=== PATIENT | male | born 1960 | race Caucasian/White ===

== ENCOUNTER → 2018-04-29 00:45 | Outpatient (CLI) | payer MEDICARE, SELFPAY ==
--- NOTE | 2018-04-29 07:54 | DI.RAD_ITS ---
SYMPTOM/DIAGNOSIS: LT SHOULDER PAIN, M25.512 LEFT SHOULDER: Five views. There are mild hypertrophic changes seen at the acromioclavicular joint. There is a well corticated osseous fragment seen within the acromioclavicular joint suggesting an old injury. The glenohumeral joint is well maintained. The bones are intact and normally mineralized. The soft tissues are unremarkable. IMPRESSION: Mild degenerative changes seen at the left acromioclavicular joint.
== END ==
PROVIDERS: PCP Specialist/Technologist Athletic Trainer; Visit Provider Specialist/Technologist Athletic Trainer
DX: M25.512 Pain in left shoulder (principal); M19.012 Primary osteoarthritis, left shoulder
CPT/HCPCS: 73030

== ENCOUNTER 2018-06-10 01:12 | Outpatient (CLI) | payer MEDICARE, MEDICAID, SELFPAY ==
--- NOTE | 2018-06-10 15:50 | DI.MRI_ITS ---
SYMPTOM/DIAGNOSIS: LT SHOULDER PAIN, M25.512, H/O TRAUMA, NUMBNESS IN FINGERS LEFT SHOULDER MRI: Routine noncontrast examination was performed. The subscapularis tendon is intact as are the supraspinatus and teres minor tendons. There is thickening and intermediate signal seen in the infraspinatus tendon at its insertion site onto the greater tuberosity. The rotator cuff muscles show normal signal and size. No significant muscular fatty atrophy is present. The biceps tendon has a normal appearance and location. The glenoid labrum is grossly unremarkable on this noncontrast examination. The ligaments appear intact. There are mild hypertrophic changes seen at the acromioclavicular joint. Marrow signal otherwise is within normal limits. No evidence of an occult fracture or avascular necrosis is seen. There is a small amount of fluid seen in the subacromial subdeltoid bursa. No significant glenohumeral joint effusion is seen. No soft tissue masses or other focal fluid collections are appreciated. The articular cartilage at the glenohumeral joint appears well maintained. IMPRESSION: Abnormal signal and thickening in the infraspinatus tendon. This may represent a partial intrasubstance tear versus tendinosis. Osteoarthritis of the acromioclavicular joint. Small amount of fluid in the subacromial subdeltoid bursa suggesting bursitis.
== END 2018-06-10 01:32 ==
PROVIDERS: PCP Specialist/Technologist Athletic Trainer; Visit Provider Specialist/Technologist Athletic Trainer
DX: M25.512 Pain in left shoulder (principal); R20.2 Paresthesia of skin; M75.51 Bursitis of right shoulder; M19.011 Primary osteoarthritis, right shoulder
CPT/HCPCS: 73221

== ENCOUNTER → 2018-07-04 09:04 | Outpatient (BNVA) | payer MEDICARE, MEDICAID, SELFPAY | PROVIDERS: PCP Specialist/Technologist Athletic Trainer; Referring Provider Specialist/Technologist Athletic Trainer; Visit Provider Orthopaedic Surgery | DX: M75.102 Unspecified rotator cuff tear or rupture of left shoulder, not specified as traumatic (principal) | CPT/HCPCS: 20610; 99202; 99213; J1040 ==

== ENCOUNTER 2019-01-09 21:03 | Emergency (ER) | payer MEDICARE, SELFPAY ==
--- NOTE | 2019-01-09 21:07 | NUR.NOTE ---
Nursing Note: approximately 1900 pt tripped over a pipe in his house and rolled his right ankle PT thinks he broke his ankle. pt has broken the same ankle 3 previous times significant swelling
[2019-01-09 21:08] VITALS: BP 136/84; PULSE 88; RESP 16; TEMP 36.8; O2SAT 98
--- NOTE | 2019-01-09 21:33 | ED.GENADUL_ITS ---
Discharge Plan Disposition Patient Disposition: HOME Discharge Details Chief Complaint: Orthopedic Clinical Impression: Avulsion fracture of right ankle Primary Care Provider: Rashid Vasquez ED Provider: Hank Vasques Discharge Instructions Instructions: Ankle Fracture (ED) Additional Instructions: Please take ibuprofen over the counter. Take 600mg by mouth every 6 hours as needed for pain. Please take acetaminophen (tylenol) - 650mg every 6 hours by mouth as needed for pain. Use orthopedic boot and crutches. Follow-up with orthopedics. Call for an appointment. Referrals: Rashid Vasquez [Primary Care Provider] - Cornelius Paris MD [ [facility] STAFF PHYSICIAN] - Medical Decision Making 21:45 --58-year-old male with history of 3 fractures of the right ankle in the past, requiring ORIF, here after inversion injury to his right ankle with significant swelling and tenderness lateral malleolus. Patient is neurovascular intact distally. Concern for fracture versus sprain. Plan to x-ray the ankle. I will give ibuprofen and Tylenol for pain. Ice applied. 23:35 --x-ray of the ankle was reviewed and interpreted by radiology: There may be an acute avulsion fracture of the right lateral malleolus. There is lateral ankle severe soft tissue swelling. There is moderate medial swelling as well. Evidence of old injuries ankle. Results reviewed the patient. Patient was placed in equalizer walking boot and provided crutches. He was instructed to stay off his ankle for the next few days and then slowly advance weightbearing as tolerated. He was instructed to follow-up with orthopedics and call for an appointment. HPI General Mode of arrival: ambulatory . Date/Time Provider Initiated Documentation: 01/09/19 21:21 . Limitations to Documentation: no limitations . Information obtained by: patient . HPI Narrative: 58-year-old male here with chief complaint of right ankle pain. Patient states that he inverted his ankle around 7 PM tonight after tripping over a pipe in his house. He is concerned that he has re-broken his ankle. Patient notes he is broken this ankle 3 times in the past requiring ORIF. He has no associated numbness or tingling. No other injury. No proximal lower leg pain. Related Data Allergies Allergy/AdvReac Type Severity Reaction Status Date / Time No Known Allergies Allergy Unverified 01/09/19 21:13 General Stated Complaint: Orthopedic PAULA: 4 Review of Systems Musculoskeletal Musculoskeletal: Reports as per HPI Neurologic Neurologic: Reports as per HPI [facility] Medical History Hypertension (Chronic) Surgical History Appendectomy Colonoscopy - IV Sedation (10/02/16) Social History Smoking/Tobacco Use Status: Former Tobacco Use Alcohol Intake: current Alcohol Intake frequency: 0-2 drinks per day Drug use: Never Substance use type: does not use Do you feel safe at home: Yes Do you feel safe in your relationship?: Yes Exam Const General: cooperative and no acute distress Cardio Rate: regular rate and not tachycardic Rhythm: regular rhythm Pulses: dorsalis pedis pulses present on the right 2+ Skin General skin exam: no rashes or lesions noted Extrem General: normal capillary refill Right lower extremity: ankle Details: tenderness Location: of the lateral malleolus and swelling Details: laterally Course Vital Signs Vital signs: Vital Signs Temperature 36.8 C 01/09/19 21:08 Pulse 88 01/09/19 21:08 Respiratory Rate 16 01/09/19 21:08 Blood Pressure 136/84 01/09/19 21:08 Pulse Oximetry 98 01/09/19 21:08 Temperature 36.8 C 01/09/19 21:08 Temperature Source Skin 01/09/19 21:08 Pulse 88 01/09/19 21:08 Respiratory Rate 16 01/09/19 21:08 Respiratory Effort 01/09/19 21:13 Blood Pressure 136/84 01/09/19 21:08 Blood Pressure Position Sitting 01/09/19 21:08 Pulse Oximetry 98 01/09/19 21:08 Oxygen Delivery Method Room Air 01/09/19 21:08 Oxygen Flow Rate 0 01/09/19 21:08 Pain Level 8 01/09/19 21:08
[2019-01-09] MEDS: Acetaminophen 325 MG TAB 650 MG PO (21:39)
[2019-01-09] MEDS: Ibuprofen 600 MG TAB PO (21:39)
--- NOTE | 2019-01-09 22:50 | DI.RAD_ITS ---
EXAM: XR ANKLE RT COMPLETE INDICATION: pain, inversion, prior ORIF. COMPARISON: No exams were available for comparison TECHNIQUE: 2D digital imaging was performed. FINDINGS: Soft tissue swelling is noted about the ankle. There is evidence of old healed fractures. Soft tissu e calcifications and degenerative changes. The possibility of an acute avulsion fracture of the righ t lateral malleolus could not be entirely excluded. IMPRESSION: There may be a small acute avulsion fracture involving the lateral malleolus. Soft tissue swelling is evident. Old fractures and degenerative changes are identified.
--- NOTE | 2019-01-09 23:27 | DI.VRAD_ITS ---
PROCEDURE INFORMATION: Exam: XR Right Ankle Exam date and time: 01/09/2019 9:32 PM Clinical history: 58 years old, male; Pain; Right; Prior surgery; Surgery date: 6+ months; Surgery type: Ankle orif TECHNIQUE: Imaging protocol: XR Right ankle. Views: 3 or more views. COMPARISON: No relevant prior studies available. FINDINGS: Bones/joints: Patient status post prior injury to the right ankle with evidence of old healed fractures ligamentous calcification soft tissue calcification and degenerative changes. There may be an acute avulsion fracture of the right lateral malleolus. Soft tissues: There is lateral ankle severe soft tissue swelling. There is moderate medial swelling as well. Phleboliths are present. Consider venous insufficiency. IMPRESSION: 1. There may be an acute avulsion fracture of the right lateral malleolus. 2. There is lateral ankle severe soft tissue swelling. There is moderate medial swelling as well. 3. Evidence of old injuries to the ankle Dictated and Authenticated by: Farrukh Sullivan MD. Ordering:JOHN Mckinney MD
== END 2019-01-09 23:45 | disposition home or self-care (01) ==
PROVIDERS: Emergency Provider Student in an Organized Health Care Education/Training Program; PCP Specialist/Technologist Athletic Trainer
DX: S82.61XA Displaced fracture of lateral malleolus of right fibula, initial encounter for closed fracture (principal); X50.9XXA Other and unspecified overexertion or strenuous movements or postures, initial encounter; Z87.81 Personal history of (healed) traumatic fracture
CPT/HCPCS: 27786; 73610; E0114; L4361

== ENCOUNTER → 2019-01-21 09:19 | Outpatient (BNVA) | payer MEDICARE, SELFPAY | PROVIDERS: PCP Specialist/Technologist Athletic Trainer; Referring Provider Specialist/Technologist Athletic Trainer; Visit Provider Orthopaedic Surgery | DX: S82.839A Other fracture of upper and lower end of unspecified fibula, initial encounter for closed fracture (principal); W01.0XXA Fall on same level from slipping, tripping and stumbling without subsequent striking against object, initial encounter | CPT/HCPCS: 99201; 99213; L4361 ==

== ENCOUNTER 2019-05-06 09:32 | Emergency (ER) | payer MEDICARE, SELFPAY ==
[2019-05-06 09:44] VITALS: BP 154/82; PULSE 68; RESP 13; TEMP 37.2; O2SAT 99
--- NOTE | 2019-05-06 09:48 | W.ED.GENAD ---
Discharge Plan Disposition Patient Disposition: HOME Condition: Stable Discharge Details Chief Complaint: Nk/Back Pain Clinical Impression: Thoracic myofascial strain Primary Care Provider: Rashid Vasquez ED Provider: Mecca Donaldson Home Meds and New Rx's Prescriptions: New methocarbamol 500 mg tablet 500 mg PO Q6H PRN (Reason: muscle spasm) Qty: 14 RF: 0 Continued ibuprofen 400 mg Tablet 400 mg PO Q6H PRNRF: 0 lisinopril 5 mg Tablet 5 mg PO DAILY RF: 0 Discharge Instructions Instructions: Muscle Strain (ED) Additional Instructions: Alternate ice and heat to the affected area several times daily for 20 minutes at a time. Alternate tylenol and motrin as needed and directed for pain. Take the muscle relaxers as needed and directed for pain and muscle spasm. Use a tennis ball and your weight to push against a wall in the area of pain to help with massage as much as possible. You can purchase [id number] lidocaine patches to use as needed and directed for pain. Follow-up with your primary care doctor in 1 week. Return to the emergency department with any worsening or new concerning symptoms. Discharge Data Discharge Date/Time-TO BE ENTERED AT DEPARTURE: 05/06/19 10:25 Discharge Physician: Mecca Donaldson Medical Decision Making 58-year-old male presents with right-sided upper back pain that started yesterday after 2 days of cutting wood. Patient states he had difficulty sleeping last night due to the pain that is worse with any movement, specifically his head or arms. He denies fever, cough, chest pain, shortness of breath or extremity weakness or numbness. He has a localized area of tenderness right paraspinal region medial scapula. Lungs clear. Normal heart rate and rhythm. No focal deficits. Neurovascular intact. This appears consistent with likely muscle spasm/pinched nerve. Patient states he drove himself here and cannot take any sedating medications as he has to drive himself home. An EKG was done on arrival but this was unnecessary. It noted a rate of 53, sinus, no acute ST ischemic changes. Lidoderm patch was placed and patient was given an additional 400 mg of ibuprofen as he took only 400mg 2 hours ago at home. We will send with a prescription for Robaxin. Patient was advised on the importance of massage, ice and heat. Advised to follow up with the primary care doctor for re-evaluation. Usual and customary return precautions given prior to discharge. Medical Records Medical records reviewed: Yes I reviewed the patient's medical records. ECG Data Attestation: I personally reviewed and interpreted this ECG (s) as follows: Interpretation: Rate of 57, sinus, no acute ST elevation or depression. WA 180. QTc 396. QRS 94. HPI General Mode of arrival: ambulatory. Date/Time Provider Initiated Documentation: 05/06/19 09:35. Limitations to Documentation: no limitations. Information obtained by: patient. History of Present Illness 58 year old M presents to the emergency department with the chief complaint of R sided back pain , Patient started experiencing this day(s) (1) and it has been constant. No relieving factors improve symptom(s), Movement worsens symptoms . Patient did receive the following treatments prior to arrival, NSAID (400mg) Related Data Home Medications Medication Instructions Recorded Confirmed ibuprofen 400 mg PO Q6H PRN 05/06/19 05/06/19 lisinopril 5 mg PO DAILY 05/06/19 05/06/19 methocarbamol 500 mg PO Q6H PRN #14 tab 05/06/19 Previous Rx's Medication Instructions Recorded methocarbamol 500 mg PO Q6H PRN #14 tab 05/06/19 Allergies Allergy/AdvReac Type Severity Reaction Status Date / Time No Known Allergies Allergy Verified 01/21/19 09:23 General Stated Complaint: Nk/Back Pain PAULA: 3 Review of Systems All systems reviewed & are unremarkable except as noted in HPI and below Constitutional Constitutional: Reports as per HPI, Denies chills and Denies fever(s) Eyes Eyes: Denies blurry vision ENT Ears, Nose, Mouth, and Throat: Denies dizziness, Denies sore throat and Denies throat swelling Cardiovascular Cardiovascular: Denies chest pain and Denies dyspnea Respiratory Respiratory: Denies cough and Denies dyspnea Gastrointestinal Gastrointestinal: Denies abdominal pain, Denies diarrhea and Denies vomiting Genitourinary Genitourinary: Denies hematuria and Denies dysuria Musculoskeletal Musculoskeletal: Reports back pain and Denies numbness Integumentary/Breasts Skin/Breast: Denies lesions and Denies rash Neurologic Neurologic: Denies dizziness, Denies focal weakness and Denies numbness Allergic/Immunologic Allergic/Immunologic: Denies throat swelling [facility] Medical History (Updated 05/06/19 @ 10:26 by Mecca Donaldson DO) Hypertension (Chronic) TBI (traumatic brain injury) (Acute) Surgical History Appendectomy Colonoscopy - IV Sedation (10/02/16) History of knee surgery (Acute) History of open heart surgery (Acute) History of splenectomy (Acute) Social History Smoking/Tobacco Use Status: Former Tobacco Use Alcohol Intake: current Alcohol Intake frequency: a few times a week Alcohol type: beer Drug use: Occasionally Substance use type: marijuana Do you feel safe at home: Yes Do you feel safe in your relationship?: Yes Exam Const General: cooperative, healthy appearing and no acute distress HENMT Head: normal to inspection Face and sinus: normal facial exam Eyes General: appearance normal, both eyes and all related structures EOM: EOM intact bilaterally Neck Neck: normal visual inspection and No submandibular swelling Lymphatic: no lymphadenopathy noted Chest Chest: normal inspection of the chest and no tenderness Resp Effort & Inspection: normal respiratory effort and able to speak in complete sentences Auscultation: clear to auscultation bilaterally Cardio Rate: regular rate Rhythm: regular rhythm GI Inspection: normal to inspection Palpation: soft, not firm, not rigid and nontender Auscultation: normal bowel sounds Back/Spine/Pelvis Thoracic/Lumbar Spine: thoracic and lumbar spine normal to inspection Pelvis: no pain with anterior-posterior compression Back/spine/pelvis image: 1. Localized area of tenderness right thoracic paraspinal region on medial edge of scapula. There is no rash, erythema, evidence of trauma, step-off, lesions or crepitus. Skin General skin exam: no rashes or lesions noted Neuro General: alert, awake and oriented x3 Cognition: normal cognition Speech: speech normal Motor: muscle tone normal throughout and strength 5/5 throughout Sensory Exam: no sensory deficits noted Extrem General: normal to inspection, full ROM, normal capillary refill, no calf tenderness bilaterally and no edema Psych Appearance: grossly normal Mental Status: mental status grossly normal Speech and Movement: speech and movement normal Affect: normal affect Course Vital Signs Vital signs: Vital Signs Temperature 99.0 F 05/06/19 09:44 Pulse 68 05/06/19 09:44 Respiratory Rate 13 05/06/19 09:44 Blood Pressure 154/82 H 05/06/19 09:44 Pulse Oximetry 99 05/06/19 09:44 Temperature 99.0 F 05/06/19 09:44 Temperature Source Skin 05/06/19 09:44 Pulse 68 05/06/19 09:44 Respiratory Rate 13 05/06/19 09:44 Blood Pressure 154/82 H 05/06/19 09:44 Blood Pressure Position Sitting 05/06/19 09:44 Pulse Oximetry 99 05/06/19 09:44 Oxygen Delivery Method Room Air 05/06/19 09:44 Oxygen Flow Rate 0 05/06/19 09:44 Pain Level 10 05/06/19 09:44
[2019-05-06] MEDS: Lidocaine 5% Patch 1 PATCH TP (10:22)
[2019-05-06] MEDS: Ibuprofen 400 MG TAB PO (10:22)
== END 2019-05-06 10:25 | disposition home or self-care (01) ==
PROVIDERS: Emergency Provider Physician Assistant; PCP Specialist/Technologist Athletic Trainer
DX: S29.012A Strain of muscle and tendon of back wall of thorax, initial encounter (principal); X50.3XXA Overexertion from repetitive movements, initial encounter; I10 Essential (primary) hypertension
CPT/HCPCS: 93005; 99283; 93010

== ENCOUNTER 2019-11-27 09:47 | Emergency (ER) | payer MEDICARE, MEDICAID, SELFPAY ==
[2019-11-27] VITALS (38 sets, daily range): BP systolic 137–178; BP diastolic 69–99; PULSE 63–92; RESP 14–24; TEMP 36.6–36.8; O2SAT 95–99
--- NOTE | 2019-11-27 09:45 | DI.RAD_ITS ---
EXAM: XR CHEST 2V PA LATERAL CLINICAL HISTORY: Palpitations TECHNIQUE: 2D digital imaging was performed. COMPARISON: CR XR shoulder LT complete 2+V from 04/29/2018 FINDINGS: The heart is not enlarged. The lungs are clear and well expanded. No pleural effusion seen. Mediastin al contours appear intact. IMPRESSION: Normal chest
--- NOTE | 2019-11-27 09:45 | RT.EKG_ITS ---
APPROVED REPORT Exam: Resting ECG Patient Location: E HR:86 bpm ECG Measurements Heart Rate 86 AXIS WA 181 P 71 QRSd 88 QRS 75 QT 360 T 30 QTc 433 Conclusion Sinus rhythm.rate 86, QRS narrow, wandering baseline, no stemi
[2019-11-27 10:10] LABS: Abs Immature Grans 0.03 10^3/uL (0.0-0.06); Absolute Basophil Count 0.04 10^3/uL (0.0-0.2); Absolute Eosinophil Count 0.07 10^3/uL (0.0-0.7); Absolute Lymphocyte Count 1.48 10^3/uL (1.2-3.4); Absolute Monocyte Count 0.81 10^3/uL (0.1-0.8); Absolute Neutrophil Count 6.12 10^3/uL (1.2-6.7); Basophils % 0.5; Eosinophils % 0.8; HCT 44.1 % (40.0-50.0); HGB 14.8 g/dL (13.5-17.5); Immature Grans % 0.4; Lymphocytes % 17.3; MCH 30.3 pg (27.0-33.0); MCHC 33.6 % (32.0-36.0); MCV 90.2 fL (80-95); MPV 9.3 fL (8.0-11.0); Monocytes % 9.5; Neutrophils % 71.5; Nucleated RBC 0 %; Platelet Count 363 10^3/uL (130-400); RBC 4.89 10^6/uL (4.36-5.78); RDW 14.6 % (11.8-14.1); RDW-SD 48.5 fL; WBC 8.55 10^3/uL (4.4-10.8)
[2019-11-27] MEDS: Aspirin 325 MG TAB PO (10:12)
[2019-11-27] MEDS: Normal Saline 1,000 ML 1000 ML IV (10:13)
[2019-11-27] MEDS: Normal Saline Flush 10 ML SYR IVP ×2 (10:13→11:20)
[2019-11-27 10:34] LABS: ALT 31 U/L (16-63); AST 24 U/L (15-37); Albumin 3.5 g/dL (3.4-5.0); Alkaline Phosphatase 85 U/L (46-116); Anion Gap 7.7 mmol/L (3-11); BUN 15 mg/dL (7-18); Bilirubin, Total 0.5 mg/dL (0.2-1.0); CO2 26.3 mmol/L (21.0-32.0); CREATININE 1.01 mg/dL (0.70-1.30); Calcium 8.8 mg/dL (8.5-10.1); Chloride 102 mmol/L (98-107); Glucose 196 mg/dL (74-106); Potassium 4.9 mmol/L (3.5-5.1); Sodium 136 mmol/L (136-145); TSH 0.77 uIU/mL (0.36-3.74); Total Protein 7.6 g/dL (6.4-8.2)
[2019-11-27 10:37] LABS: *AMPHETAMINES SCREEN URINE Negative (Negative); *BARBITURATES SCREEN URINE Negative (Negative); *BENZODIAZEPINES SCREEN URINE Negative (Negative); Cannabinoids THC POSITIVE (Negative); Cocaine Screen,Urine Negative (Negative); METHADONE URINE SCREEN POSITIVE (Negative); OPIATES URINE SCREEN Negative (Negative)
[2019-11-27 10:40] LABS: Troponin I < 0.05 ng/mL (<0.06)
[2019-11-27 10:41] LABS: Tricyclic Antidepressants Negative (Negative)
--- NOTE | 2019-11-27 10:45 | DI.CT_ITS ---
EXAM: CT CHEST PE CTA CLINICAL HISTORY: Palpitations, left mid back pain, elevated dimer TECHNIQUE: COMPARISON: CT RENAL COLIC WO CONTRAST from 12/27/2016 FINDINGS: CT angiography of the chest was performed with a bolus infusion of 100 cc of Omnipaque 350. Images o btained through the upper abdomen show unremarkable appearance of visualized portions of liver, splee n, pancreas, adrenals, and kidneys. No mediastinal or hilar adenopathy. Tracheobronchial tree appears intact. There is no evidence of p ulmonary embolic disease. Thoracic aorta is of normal diameter with no evidence of dissection. Pollo nary artery calcifications noted. The lungs are clear. No pleural effusion or pneumothorax. Old left posterior rib deformities noted, the patient reportedly had remote trauma. IMPRESSION: Negative CT angiography of the chest
[2019-11-27 10:53] LABS: D-Dimer 673 ng/mlFEU (<500)
--- NOTE | 2019-11-27 10:53 | ED.GENADUL_ITS ---
Discharge Plan Disposition Patient Disposition: HOME Condition: Stable Discharge Details Chief Complaint: Palpitatns Clinical Impression: Palpitations Primary Care Provider: None,None ED Provider: Herminio Cifuentes Home Meds and New Rx's Prescriptions: Continued ibuprofen 400 mg Tablet 400 mg PO Q6H PRNRF: 0 lisinopril 5 mg Tablet 10 mg PO DAILY RF: 0 aspirin 81 mg Tablet,Chewable 81 mg PO DAILY RF: 0 Discharge Instructions Instructions: Heart Palpitations (ED) Additional Instructions: At this time your laboratory values and cardiac rule out here in the ER have been unremarkable for emergent process. Your heart rate has stayed appropriate on the boring machine operator double end and her blood pressure has trended down nicely without intervention. You are currently asymptomatic. Please watch for new or worsening symptoms and return to the ER for any concerns. I have set you up with a 48-hour Holter monitor. I have also placed you on the care management list to help expedite outpatient care. I am not going to start any new hypertension medications and will have you discuss this with your new primary care provider. Medical Decision Making This is a 59-year-old gentleman with history of hypertension, presenting to the ER today reporting that he did not sleep at all overnight, on his way to work this morning experienced palpitations. He admits that he had similar symptoms 2 or 3 times over the past several months but symptoms only lasted for a matter a few minutes. He never had this evaluated. He denies recent illness or trauma. He did recently take himself off of his lisinopril as he did not like the way it was making him feel. He presents to the ER now asymptomatic. Clinically he appears well, nontoxic. Heart rate in the 90s on the monitor and appears to be sinus rhythm.. He is slightly hypertensive but asymptomatic. Respirations are 20, O2 sat 98% on room air, he is afebrile. We will obtain a cardiac work-up including a lipase, tox screen, TSH, d-dimer secondary to his back discomfort. The lack of sleep over the past 24 hours certainly could have exacerbated his palpitations. Lower suspicion for diagnosis such as acute pancreatitis, drug abuse, thyroid disease, PE, anemia, infection, etc. We will give a single dose of aspirin. Blood pressure trending down nicely without any therapy. Heart rate now in the 70s. Initial laboratories reveal a white count of 8.55 hemoglobin 14.8 hematocrit 44.1 platelet count 363. D-dimer is slightly elevated at 673, will obtain CTA. Chest x-ray was already obtained and negative per radiology. Chemistries unremarkable. Creatinine 1.01 with estimated GFR greater than 60. LFTs unremarkable. Troponin less than 0.05. TSH 0.77 and lipase is 224. Urinalysis reveals 15 ketones, trace blood, 3-5 red blood cells. He reports that he has had left-sided back pain intermittently for over a month. Clinically does not appear to be in acute renal stone, I do not believe that CT imaging of abdomen and pelvis warranted at this time. Urine tox screen positive for methadone and THC. Upon reevaluation we discussed his initial laboratory values including his d- dimer. He is agreeable to obtaining a chest CTA for further evaluation. He remains asymptomatic. He is also agreeable to awaiting repeat troponin and EKG at 3 hours. Chest CTA obtained and read by radiology as negative. Discussed findings with patient. He is relieved and remains asymptomatic. Repeat troponin less than 0.05. Repeat EKG performed at 1253, reviewed and interpreted with Dr. Gonzalez. Sinus rhythm, ventricular of 63. No STEMI. Discussed repeat troponin and EKG. Patient is relieved and has no additional questions or concerns. He is quite comfortable discharge at this time. Given his palpitations, multiple episodes over the past several months, I will set him up with a Holter monitor here in the ER and I will have our care management team get involved to help expedite outpatient care. Patient is grateful for this. We discussed his mild hypertension. Patient discontinued his lisinopril as he did not like how it made him feel. Given his blood pressure is only slightly elevated and he is currently asymptomatic, I will not initiate outpatient hypertension medications at this time. Instead I will allow his new primary care provider to discuss treatment plan. Patient is comfortable this plan. Upon discharge today he is asymptomatic. He has no additional questions or co ncerns and will await the care management call. He was educated to return to the ER for new or evolving symptoms. Medical Records Medical records reviewed: Yes I reviewed the patient's medical records. Imaging Data Radiologic Study: Radiologist's impression: Lab Data Lab results reviewed: Yes I reviewed the patient's lab results. Lab results narrative: Laboratory Tests Range/Units 11/27/19 11/27/19 11/27/19 09:58 10:00 10:00 WBC (4.4-10.8) 10^3/uL 8.55 RBC (4.36-5.78) 10^6/uL 4.89 Hgb (13.5-17.5) g/dL 14.8 Hct (40.0-50.0) % 44.1 MCV (80-95) fL 90.2 MCH (27.0-33.0) pg 30.3 MCHC (32.0-36.0) % 33.6 RDW (11.8-14.1) % 14.6 H Plt Count (130-400) 10^3/uL 363 MPV (8.0-11.0) fL 9.3 Immature Gran % 0.4 Neutrophils % 71.5 Lymphocytes % 17.3 Monocytes % 9.5 Eosinophils % 0.8 Basophils % 0.5 Absolute Neutrophils (1.2-6.7) 10^3/uL 6.12 Absolute Lymphocytes (1.2-3.4) 10^3/uL 1.48 Absolute Monocytes (0.1-0.8) 10^3/uL 0.81 H Absolute Eosinophils (0.0-0.7) 10^3/uL 0.07 Absolute Basophils (0.0-0.2) 10^3/uL 0.04 D-Dimer (<500) ng/mlFEU 673 H Sodium (136-145) mmol/L 136 Potassium (3.5-5.1) mmol/L 4.9 Chloride (98-107) mmol/L 102 Carbon Dioxide (21.0-32.0) mmol/L 26.3 Anion Gap (3-11) mmol/L 7.7 BUN (7-18) mg/dL 15 Creatinine (0.70-1.30) mg/dL 1.01 Estimated GFR/1.73 m2 (mL/min/1.73m2) >= 60.00 Glucose (74-106) mg/dL 196 H Calcium (8.5-10.1) mg/dL 8.8 Magnesium (1.8-2.4) mg/dL 2.0 Total Bilirubin (0.2-1.0) mg/dL 0.5 AST (15-37) U/L 24 ALT (16-63) U/L 31 Alkaline Phosphatase (46-116) U/L 85 Troponin I (<0.06) ng/mL < 0.05 Total Protein (6.4-8.2) g/dL 7.6 Albumin (3.4-5.0) g/dL 3.5 Lipase (73-393) U/L TSH (0.36-3.74) uIU/mL 0.77 Urine Color (Yellow) Urine Clarity (Clear) Urine pH (5-8) Ur Specific [place] (1.005-1.025) Urine Protein (Negative) mg/dL Urine Ketones (Negative) mg/dL Urine Blood (Negative) Urine Nitrite (Negative) Urine Bilirubin (Negative) Urine Urobilinogen (Up TO 0.2) EU/dL Ur Leukocyte Esterase (Negative) Urine RBC (0-2) HPF Urine WBC (0-5) HPF Ur Epithelial Cells (Negative) HPF Urine Crystals (Negative) HPF Urine Bacteria (Negative) HPF Urine Casts (Negative) LPF Urine Mucus (Negative) Urine Other (Negative) Ur Culture Indicated? Urine Glucose (Negative) mg/dL Urine Opiates Screen (Negative) Urine Methadone Screen (Negative) Ur Barbiturates Screen (Negative) Ur Tricyclics Screen (Negative) Ur Amphetamines Screen (Negative) U Benzodiazepines Scrn (Negative) Urine Cocaine Screen (Negative) Ur THC Screen (Negative) Range/Units 11/27/19 11/27/19 11/27/19 10:00 10:07 10:07 WBC (4.4-10.8) 10^3/uL RBC (4.36-5.78) 10^6/uL Hgb (13.5-17.5) g/dL Hct (40.0-50.0) % MCV (80-95) fL MCH (27.0-33.0) pg MCHC (32.0-36.0) % RDW (11.8-14.1) % Plt Count (130-400) 10^3/uL MPV (8.0-11.0) fL Immature Gran % Neutrophils % Lymphocytes % Monocytes % Eosinophils % Basophils % Absolute Neutrophils (1.2-6.7) 10^3/uL Absolute Lymphocytes (1.2-3.4) 10^3/uL Absolute Monocytes (0.1-0.8) 10^3/uL Absolute Eosinophils (0.0-0.7) 10^3/uL Absolute Basophils (0.0-0.2) 10^3/uL D-Dimer (<500) ng/mlFEU Sodium (136-145) mmol/L Potassium (3.5-5.1) mmol/L Chloride (98-107) mmol/L Carbon Dioxide (21.0-32.0) mmol/L Anion Gap (3-11) mmol/L BUN (7-18) mg/dL Creatinine (0.70-1.30) mg/dL Estimated GFR/1.73 m2 (mL/min/1.73m2) Glucose (74-106) mg/dL Calcium (8.5-10.1) mg/dL Magnesium (1.8-2.4) mg/dL Total Bilirubin (0.2-1.0) mg/dL AST (15-37) U/L ALT (16-63) U/L Alkaline Phosphatase (46-116) U/L Troponin I (<0.06) ng/mL Total Protein (6.4-8.2) g/dL Albumin (3.4-5.0) g/dL Lipase (73-393) U/L 224 TSH (0.36-3.74) uIU/mL Urine Color (Yellow) Yellow Urine Clarity (Clear) Clear Urine pH (5-8) 6.5 Ur Specific [place] (1.005-1.025) 1.025 Urine Protein (Negative) mg/dL Negative Urine Ketones (Negative) mg/dL 15 H Urine Blood (Negative) Trace-intact H Urine Nitrite (Negative) Negative Urine Bilirubin (Negative) Negative Urine Urobilinogen (Up TO 0.2) EU/dL 0.2 Ur Leukocyte Esterase (Negative) Negative Urine RBC (0-2) HPF 3-5 H Urine WBC (0-5) HPF 3-5 Ur Epithelial Cells (Negative) HPF Negative Urine Crystals (Negative) HPF Negative Urine Bacteria (Negative) HPF Rare Urine Casts (Negative) LPF Negative Urine Mucus (Negative) Moderate Urine Other (Negative) Rare renal Ur Culture Indicated? No Urine Glucose (Negative) mg/dL 500 H Urine Opiates Screen (Negative) Negative Urine Methadone Screen (Negative) Positive A Ur Barbiturates Screen (Negative) Negative Ur Tricyclics Screen (Negative) Negative Ur Amphetamines Screen (Negative) Negative U Benzodiazepines Scrn (Negative) Negative Urine Cocaine Screen (Negative) Negative Ur THC Screen (Negative) Positive A Range/Units 11/27/19 12:53 WBC (4.4-10.8) 10^3/uL RBC (4.36-5.78) 10^6/uL Hgb (13.5-17.5) g/dL Hct (40.0-50.0) % MCV (80-95) fL MCH (27.0-33.0) pg MCHC (32.0-36.0) % RDW (11.8-14.1) % Plt Count (130-400) 10^3/uL MPV (8.0-11.0) fL Immature Gran % Neutrophils % Lymphocytes % Monocytes % Eosinophils % Basophils % Absolute Neutrophils (1.2-6.7) 10^3/uL Absolute Lymphocytes (1.2-3.4) 10^3/uL Absolute Monocytes (0.1-0.8) 10^3/uL Absolute Eosinophils (0.0-0.7) 10^3/uL Absolute Basophils (0.0-0.2) 10^3/uL D-Dimer (<500) ng/mlFEU Sodium (136-145) mmol/L Potassium (3.5-5.1) mmol/L Chloride (98-107) mmol/L Carbon Dioxide (21.0-32.0) mmol/L Anion Gap (3-11) mmol/L BUN (7-18) mg/dL Creatinine (0.70-1.30) mg/dL Estimated GFR/1.73 m2 (mL/min/1.73m2) Glucose (74-106) mg/dL Calcium (8.5-10.1) mg/dL Magnesium (1.8-2.4) mg/dL Total Bilirubin (0.2-1.0) mg/dL AST (15-37) U/L ALT (16-63) U/L Alkaline Phosphatase (46-116) U/L Troponin I (<0.06) ng/mL < 0.05 Total Protein (6.4-8.2) g/dL Albumin (3.4-5.0) g/dL Lipase (73-393) U/L TSH (0.36-3.74) uIU/mL Urine Color (Yellow) Urine Clarity (Clear) Urine pH (5-8) Ur Specific [place] (1.005-1.025) Urine Protein (Negative) mg/dL Urine Ketones (Negative) mg/dL Urine Blood (Negative) Urine Nitrite (Negative) Urine Bilirubin (Negative) Urine Urobilinogen (Up TO 0.2) EU/dL Ur Leukocyte Esterase (Negative) Urine RBC (0-2) HPF Urine WBC (0-5) HPF Ur Epithelial Cells (Negative) HPF Urine Crystals (Negative) HPF Urine Bacteria (Negative) HPF Urine Casts (Negative) LPF Urine Mucus (Negative) Urine Other (Negative) Ur Culture Indicated? Urine Glucose (Negative) mg/dL Urine Opiates Screen (Negative) Urine Methadone Screen (Negative) Ur Barbiturates Screen (Negative) Ur Tricyclics Screen (Negative) Ur Amphetamines Screen (Negative) U Benzodiazepines Scrn (Negative) Urine Cocaine Screen (Negative) Ur THC Screen (Negative) ECG Data Attestation: I personally reviewed and interpreted this ECG (s) as follows: Interpretation: EKG performed at 951 reviewed and interpreted with Dr. Gonzalez, please see his official report. Sinus rhythm, ventricular rate 86. No STEMI HPI General Mode of arrival: ambulatory . Date/Time Provider Initiated Documentation: 11/27/19 09:48 . Limitations to Documentation: no limitations . Information obtained by: patient . HPI Narrative: This is a 59-year-old gentleman with a history of hypertension, TBI, presenting to the ER today complaining of palpitations. He reports that he woke up yesterday morning around 5 AM, went to work as he typically would. [place] a little fatigued overall but last night was unable to sleep whatsoever. He is unsure why he could not sleep. He denies increased stress or anxiety. Denies recent illness or trauma. Because he could not sleep overnight, he reports that he is tired now, on his way to work felt as though his heart was racing. Denies any chest pain or shortness of breath whatsoever. He does report similar symptoms 2 or 3 times over the past 6 months but did not last more than 5-10 minutes. He also reports that he stopped taking his lisinopril 5 days ago because he did not like taking it. He reports he has been on the medication for approximately 5 months. He admits to drinking a beer every evening after dinner but does not typically drink more than that. He reports occasional marijuana use but none yesterday. He does smoke cigarettes. He denies any headache, neck pain, numbness, tingling, weakness, chest pain, shortness of breath, back pain, abdominal pain, nausea, vomiting, dysuria. Later he tells me that he questions if he could have a kidney infection because he has had some left-sided kidney pain. He reports he has no pain there now. He has had it occasionally over the past month or so, typically is better if he stretches. Related Data Home Medications Medication Instructions Recorded Confirmed ibuprofen 400 mg PO Q6H PRN 05/06/19 11/27/19 lisinopril 10 mg PO DAILY 05/06/19 11/27/19 aspirin 81 mg PO DAILY 11/27/19 11/27/19 Allergies Allergy/AdvReac Type Severity Reaction Status Date / Time No Known Allergies Allergy Verified 11/27/19 09:52 General Stated Complaint: Palpitatns PAULA: 3 Review of Systems Constitutional Constitutional: Denies fatigue, Denies fever(s), Denies headache(s) and Denies weakness Eyes Eyes: Denies change in vision ENT Ears, Nose, Mouth, and Throat: Denies headache(s) and Denies neck pain Cardiovascular Cardiovascular: Denies chest pain, Reports rapid heart rate, Denies irregular heart rhythm, Denies lightheadedness, Denies radiating jaw, neck or arm pain, Denies palpitations and Denies dyspnea on exertion Respiratory Respiratory: Denies cough and Denies dyspnea on exertion Gastrointestinal Gastrointestinal: Denies abdominal pain, Denies nausea and Denies vomiting Genitourinary Genitourinary: Denies dysuria Musculoskeletal Musculoskeletal: Denies neck pain, Denies numbness and Denies tingling Integumentary/Breasts Skin/Breast: Denies rash Neurologic Neurologic: Denies headache(s), Denies numbness, Denies tingling and Denies weakness Endocrine Endocrine: Denies fatigue and Denies palpitations [facility] Medical History Hypertension (Chronic) TBI (traumatic brain injury) (Acute) Surgical History Appendectomy Colonoscopy - IV Sedation (06/12/17) History of knee surgery (Acute) History of open heart surgery (Acute) History of splenectomy (Acute) Social History Smoking/Tobacco Use Status: Former Tobacco Use Alcohol Intake: current Alcohol Intake frequency: 0-2 drinks per day Alcohol type: beer Drug use: Occasionally Substance use type: marijuana Do you feel safe at home: Yes Do you feel safe in your relationship?: Yes Exam Const General: cooperative, healthy appearing, comfortable and no acute distress Orientation: alert, awake and oriented x3 HENMT Head: normal to inspection, normocephalic and atraumatic Ears: external ears normal, TM's normal bilaterally and EAC's normal Face and sinus: normal facial exam Mouth: moist mucous membranes Throat: posterior oropharynx normal Eyes General: appearance normal, both eyes and all related structures Alignment and Position: alignment normal Periorbital: periorbital findings normal Eyelids: eyelids normal Conjunctivae: conjunctivae normal Sclera: sclerae normal Cornea: corneas normal Pupils: PERRL EOM: EOM intact bilaterally Direct ophthalmoscopy: normal light reflex Neck Neck: normal visual inspection, full ROM, no lymphadenopathy, no meningeal signs, trachea midline, supple and nontender Resp Effort & Inspection: normal respiratory effort and able to speak in complete sentences Auscultation: clear to auscultation bilaterally Cardio Rate: regular rate Rhythm: regular rhythm GI Palpation: soft, not firm, no guarding, not rigid and nontender Auscultation: normal bowel sounds Back/Spine/Pelvis Back: No back tenderness Skin General skin exam: no rashes or lesions noted Neuro General: patient alert, patient awake, patient oriented x3, moves all extremities and no focal motor deficits Cranial Nerves: CN's II-XI intact bilaterally Cognition: normal cognition Speech: speech normal Gait: normal gait Motor: muscle tone normal throughout and strength 5/5 throughout Sensory Exam: no sensory deficits noted Extrem General: normal to inspection, full ROM, capillary refill normal, no pedal edema, no calf tenderness and normal gait Psych Appearance: grossly normal Mental Status: mental status grossly normal Course Vital Signs Vital signs: Vital Signs Temperature 36.6 C 11/27/19 09:49 Pulse 91 H 11/27/19 09:49 Respiratory Rate 20 11/27/19 09:49 Blood Pressure 178/96 H 11/27/19 09:49 Pulse Oximetry 98 11/27/19 09:49 Temperature 36.6 C 11/27/19 09:49 Temperature Source Skin 11/27/19 09:49 Pulse 91 H 11/27/19 09:49 Respiratory Rate 20 11/27/19 09:49 Respiratory Effort 11/27/19 10:41 Blood Pressure 178/96 H 11/27/19 09:49 Blood Pressure Position Sitting 11/27/19 09:49 Pulse Oximetry 98 11/27/19 09:49 Oxygen Delivery Method Room Air 11/27/19 09:49 Oxygen Flow Rate 0 11/27/19 09:49 Pain Level 0 11/27/19 09:49 Lab/Test Results Lab/Test Results: Laboratory Tests Range/Units 11/27/19 11/27/19 11/27/19 09:58 10:00 10:00 WBC (4.4-10.8) 10^3/uL 8.55 RBC (4.36-5.78) 10^6/uL 4.89 Hgb (13.5-17.5) g/dL 14.8 Hct (40.0-50.0) % 44.1 MCV (80-95) fL 90.2 MCH (27.0-33.0) pg 30.3 MCHC (32.0-36.0) % 33.6 RDW (11.8-14.1) % 14.6 H Plt Count (130-400) 10^3/uL 363 MPV (8.0-11.0) fL 9.3 Immature Gran % 0.4 Neutrophils % 71.5 Lymphocytes % 17.3 Monocytes % 9.5 Eosinophils % 0.8 Basophils % 0.5 Absolute Neutrophils (1.2-6.7) 10^3/uL 6.12 Absolute Lymphocytes (1.2-3.4) 10^3/uL 1.48 Absolute Monocytes (0.1-0.8) 10^3/uL 0.81 H Absolute Eosinophils (0.0-0.7) 10^3/uL 0.07 Absolute Basophils (0.0-0.2) 10^3/uL 0.04 D-Dimer (<500) ng/mlFEU 673 H Sodium (136-145) mmol/L 136 Potassium (3.5-5.1) mmol/L 4.9 Chloride (98-107) mmol/L 102 Carbon Dioxide (21.0-32.0) mmol/L 26.3 Anion Gap (3-11) mmol/L 7.7 BUN (7-18) mg/dL 15 Creatinine (0.70-1.30) mg/dL 1.01 Estimated GFR/1.73 m2 (mL/min/1.73m2) >= 60.00 Glucose (74-106) mg/dL 196 H Calcium (8.5-10.1) mg/dL 8.8 Magnesium (1.8-2.4) mg/dL 2.0 Total Bilirubin (0.2-1.0) mg/dL 0.5 AST (15-37) U/L 24 ALT (16-63) U/L 31 Alkaline Phosphatase (46-116) U/L 85 Troponin I (<0.06) ng/mL < 0.05 Total Protein (6.4-8.2) g/dL 7.6 Albumin (3.4-5.0) g/dL 3.5 TSH (0.36-3.74) uIU/mL 0.77 Urine Opiates Screen (Negative) Urine Methadone Screen (Negative) Ur Barbiturates Screen (Negative) Ur Tricyclics Screen (Negative) Ur Amphetamines Screen (Negative) U Benzodiazepines Scrn (Negative) Urine Cocaine Screen (Negative) Ur THC Screen (Negative) Range/Units 11/27/19 10:07 WBC (4.4-10.8) 10^3/uL RBC (4.36-5.78) 10^6/uL Hgb (13.5-17.5) g/dL Hct (40.0-50.0) % MCV (80-95) fL MCH (27.0-33.0) pg MCHC (32.0-36.0) % RDW (11.8-14.1) % Plt Count (130-400) 10^3/uL MPV (8.0-11.0) fL Immature Gran % Neutrophils % Lymphocytes % Monocytes % Eosinophils % Basophils % Absolute Neutrophils (1.2-6.7) 10^3/uL Absolute Lymphocytes (1.2-3.4) 10^3/uL Absolute Monocytes (0.1-0.8) 10^3/uL Absolute Eosinophils (0.0-0.7) 10^3/uL Absolute Basophils (0.0-0.2) 10^3/uL D-Dimer (<500) ng/mlFEU Sodium (136-145) mmol/L Potassium (3.5-5.1) mmol/L Chloride (98-107) mmol/L Carbon Dioxide (21.0-32.0) mmol/L Anion Gap (3-11) mmol/L BUN (7-18) mg/dL Creatinine (0.70-1.30) mg/dL Estimated GFR/1.73 m2 (mL/min/1.73m2) Glucose (74-106) mg/dL Calcium (8.5-10.1) mg/dL Magnesium (1.8-2.4) mg/dL Total Bilirubin (0.2-1.0) mg/dL AST (15-37) U/L ALT (16-63) U/L Alkaline Phosphatase (46-116) U/L Troponin I (<0.06) ng/mL Total Protein (6.4-8.2) g/dL Albumin (3.4-5.0) g/dL TSH (0.36-3.74) uIU/mL Urine Opiates Screen (Negative) Negative Urine Methadone Screen (Negative) Positive A Ur Barbiturates Screen (Negative) Negative Ur Tricyclics Screen (Negative) Negative Ur Amphetamines Screen (Negative) Negative U Benzodiazepines Scrn (Negative) Negative Urine Cocaine Screen (Negative) Negative Ur THC Screen (Negative) Positive A
[2019-11-27 11:06] LABS: Lipase 224 U/L (73-393)
[2019-11-27] MEDS: Normal Saline - Diluent 50 ML VIAL IV (11:20)
[2019-11-27] MEDS: Omnipaque 350 MG/ML 100 ML BTL IV (11:22)
--- NOTE | 2019-11-27 12:45 | RT.EKG_ITS ---
APPROVED REPORT Exam: Resting ECG Patient Location: E HR:63 bpm ECG Measurements Heart Rate 63 AXIS CA 184 P 70 QRSd 82 QRS 57 QT 405 T 35 QTc 413 Conclusion Sinus rhythm.Rat 63, narrow qrs. no Stemi
[2019-11-27 13:20] LABS: Troponin I < 0.05 ng/mL (<0.06)
--- NOTE | 2019-11-27 13:25 | NUR.NOTE ---
pt provided with meal tray Nursing Note:
[2019-11-27 13:34] LABS: Bilirubin Negative (Negative); Blood Trace-intact (Negative); Clarity Clear (Clear); Glucose 500 mg/dL (Negative); Ketones 15 mg/dL (Negative); Leukocyte Esterase Negative (Negative); Nitrite Negative (Negative); Specific Gravity 1.025 (1.005-1.025); Urobilinogen 0.2 EU/dL (Up TO 0.2); pH 6.5 (5-8)
[2019-11-27 14:02] LABS: Bacteria Rare HPF (Negative); Epithelial Cells Negative HPF (Negative); Other Cells Rare Renal (Negative)
[2019-11-27 14:03] LABS: C & S Indicated? No; Casts Negative LPF (Negative); Crystals Negative HPF (Negative); Mucus Moderate (Negative)
--- NOTE | 2019-12-01 09:50 | W.HOLTRPT ---
Date of service: 12/01/19 Time of Service: 09:50 Holter Monitor Report Referring Provider:: Isis Indications:: Palpitations Holter Monitor Note: This is a 48-hour Holter monitor ordered for the indication of palpitations. ?This patient was in normal sinus rhythm for majority recording with an average heart rate of 80 bpm. ?There were 0 episodes of supraventricular tachycardia and rare PACs. ?There were 0 episodes of ventricular tachycardia and 6 total premature ventricular contractions. ?There were 0 episodes of atrial fibrillation, no pauses grade 3 seconds no evidence of high degree heart block.
== END 2019-11-27 14:21 | disposition home or self-care (01) ==
PROVIDERS: Emergency Provider Physician Assistant
DX: R00.2 Palpitations (principal); R79.1 Abnormal coagulation profile; I10 Essential (primary) hypertension; T46.5X6A Underdosing of other antihypertensive drugs, initial encounter; Z91.128 Patient's intentional underdosing of medication regimen for other reason
CPT/HCPCS: 36415; 71275; 80053; 80307; 83690; 93005; 96360; 99285; 71046; 81003; 81015; 83735; 84443; 84484; 85025; 85379; 93010; 93225; J3490

== ENCOUNTER 2019-12-01 12:05 | Outpatient (CLI) | payer MEDICARE, MEDICAID, SELFPAY | END 2019-12-01 12:25 | PROVIDERS: Referring Provider Emergency Medicine; Visit Provider Internal Medicine Cardiovascular Disease | DX: R00.2 Palpitations (principal) | CPT/HCPCS: 93227 ==

== ENCOUNTER 2020-03-12 08:24 | Outpatient (CLI) | payer MEDICARE, MEDICAID, SELFPAY | END 2020-03-12 08:44 | PROVIDERS: Referring Provider Family Medicine; Visit Provider Internal Medicine Cardiovascular Disease | DX: I48.91 Unspecified atrial fibrillation (principal); I47.2 Ventricular tachycardia | CPT/HCPCS: 93272 ==

== ENCOUNTER 2021-07-11 10:07 | Outpatient (REF) | payer MEDICAID, SELFPAY ==
[2021-07-11 19:54] LABS: Hemoglobin A1C 5.6 % (<5.7)
[2021-07-11 19:58] LABS: Anion Gap 8.2 mmol/L (3-11); BUN 11 mg/dL (7-18); CO2 26.8 mmol/L (21.0-32.0); CREATININE 0.8 mg/dL (0.70-1.30); Calcium 8.8 mg/dL (8.5-10.1); Calculated LDL 114 mg/dL (<100); Chloride 101 mmol/L (98-107); Cholesterol 192 mg/dL (<200); Glucose 94 mg/dL (74-106); HDL Cholesterol 70 mg/dL (40-60); Potassium 4.6 mmol/L (3.5-5.1); Sodium 136 mmol/L (136-145); Triglyceride 44 mg/dL (<150)
[2021-07-11 20:50] LABS: Vitamin D 25 Total 33.1 ng/mL (30-100)
== END 2021-07-11 10:08 | disposition home or self-care (01) ==
LOC: NCHCN 10:07
PROVIDERS: Visit Provider Nurse Practitioner Family
DX: Z00.00 Encounter for general adult medical examination without abnormal findings (principal)
CPT/HCPCS: 80048; 80061; 82306; 83036

== ENCOUNTER 2021-09-23 18:20 | Emergency (ER) | payer MEDICARE, MEDICAID, SELFPAY ==
[2021-09-23 18:25] VITALS: BP 167/85; PULSE 90; RESP 16; TEMP 36.8; O2SAT 98
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
[2021-09-23] MEDS: Acetaminophen 325 MG TAB 650 MG PO (18:52)
[2021-09-23] MEDS: Ibuprofen 600 MG TAB PO (18:52)
[2021-09-23] MEDS: Methocarbamol 500 MG TAB PO (18:53)
[2021-09-23] MEDS: Lidocaine 5% Patch 1 PATCH TP (18:55)
== END 2021-09-23 18:57 | disposition home or self-care (01) ==
PROVIDERS: Emergency Provider Physician Assistant
DX: S29.012A Strain of muscle and tendon of back wall of thorax, initial encounter (principal); X50.1XXA Overexertion from prolonged static or awkward postures, initial encounter
CPT/HCPCS: 99283

== ENCOUNTER 2022-07-13 16:33 | Outpatient (REF) | payer MEDICARE, MEDICAID, SELFPAY ==
[2022-07-13 17:37] LABS: Anion Gap 5.5 mmol/L (3-11); BUN 21 mg/dL (7-18); CO2 27.5 mmol/L (21.0-32.0); Calculated LDL 110 mg/dL (<100); Chloride 102 mmol/L (98-107); Cholesterol 209 mg/dL (<200); Estimated GFR 86.16 (mL/min/1.73m2); Glucose 100 mg/dL (74-106); HDL Cholesterol 87 mg/dL (40-60); Potassium 4.7 mmol/L (3.5-5.1); Sodium 135 mmol/L (136-145); Triglyceride 63 mg/dL (<150)
[2022-07-13 17:43] LABS: Hemoglobin A1C 5.7 % (<5.7)
== END 2022-07-13 16:34 | disposition home or self-care (01) ==
LOC: NCHCN 16:33
PROVIDERS: Visit Provider Nurse Practitioner Family
DX: I10 Essential (primary) hypertension (principal)
CPT/HCPCS: 80048; 80061; 83036

== ENCOUNTER 2022-07-26 01:18 | Outpatient (CLI) | payer MEDICARE, MEDICAID, SELFPAY ==
--- NOTE | 2022-07-26 | DI.RAD_ITS ---
Exam(s) XR HIP LT COMPLETE AP PELVIS EXAM: XR HIP LT COMPLETE AP PELVIS INDICATION: LT HIP PAIN, M25.552. COMPARISON: CR LEFT HIP COMPLETE from 07/24/2011 CR LEFT KNEE 3 VIEW COMPLETE from 03/17/2015 CR LUMBAR SPINE COMPLETE from 08/17/2016 CT RENAL COLIC WO CONTRAST from 12/27/2016 TECHNIQUE: 2D digital imaging was performed. Three views. FINDINGS: Screw and plate fixation is noted of the along the left acetabulum, unchanged. There is a prominent spur at the lesser trochanter projecting medially. Chronic bony densities are noted adjacent to the posterior acetabulum. There is in worsening of hip joint space narrowing. There is spurring at the left pubic symphysis. The right hip shows minimal degenerative changes. The SI joints are unremarka ble. IMPRESSION: Stable postsurgical changes. Interval worsening of degenerative changes of the left hip joint. DATA REPOSITORY: RADIATION DOSE DELIVERED:
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
== END 2022-07-26 01:38 ==
LOC: DI 01:19
PROVIDERS: Visit Provider Nurse Practitioner Family
DX: M25.552 Pain in left hip (principal); M25.562 Pain in left knee; M17.12 Unilateral primary osteoarthritis, left knee; M23.42 Loose body in knee, left knee; M16.12 Unilateral primary osteoarthritis, left hip
CPT/HCPCS: 73562; 73502

== ENCOUNTER → 2022-07-31 09:38 | Outpatient (BNVA) | payer MEDICARE, MEDICAID, SELFPAY | PROVIDERS: PCP Nurse Practitioner Family; Referring Provider Nurse Practitioner Family; Visit Provider Student in an Organized Health Care Education/Training Program | DX: M12.552 Traumatic arthropathy, left hip (principal); M12.562 Traumatic arthropathy, left knee | CPT/HCPCS: 99214 ==

== ENCOUNTER 2022-09-21 01:45 | Outpatient (CLI) | payer MEDICARE, MEDICAID, SELFPAY ==
--- NOTE | 2022-09-21 14:54 | DI.RAD_ITS ---
Exam(s) RF JOINT INJECTION FLUORO GUID EXAM: RF JOINT INJECTION FLUORO GUID CLINICAL HISTORY: L HIP INJ UNDER FLUORO,lt hip pain, m25.552 TECHNIQUE: Fluoroscopy provided. Radiologist not present. CONTRAST MATERIAL: None COMPARISON: No exams were available for comparison FINDINGS: Fluoroscopy was provided for left hip injection Please refer to the procedure report for complete details. Cumulative Dose: Ka,r=0.356 mGy IMPRESSION: RADIATION DOSE DELIVERED:
[2022-09-21] MEDS: Bupivacaine 0.5% Pres-Free 10 ML VIAL 5 ML IJ (14:56)
[2022-09-21] MEDS: methylPREDNISolone ACETATE 80 MG/ML VIAL IM (14:57)
[2022-09-21] MEDS: Omnipaque 300 MG/ML 10 ML BTL 5 ML IJ (14:57)
--- NOTE | 2022-09-21 15:41 | W.PROCNOTE ---
Date of service: 09/21/22 Time of Service: 15:00 Procedure Note Date of procedure: 09/21/22 Procedure: Left Hip Injection with Fluoroscopic Guidance Surgeon/Proceduralist/Physician: Cornelius Paris Procedure Diagnosis: Left Hip Post-traumatic arthritis Procedure Indications: Milton has had persistent pain of the LEFT hip and groin. Noninvasive measures have been tried. To serve as both diagnostic and therapeutic, an injection under fluoroscopy was recommended. I had discussed the risks of the procedure and the patient elected to proceed. Procedure Description: Milton was greeted in the flouroscopy room. The correct side was identified and the consent was reviewed with the patient and signed. The patient was then placed in the supine position on the fluoroscopy table. The LEFT hip was then prepped with Chloraprep. The anterolateral injection starting point was identiifed by bony landmarks and fluoroscopy. The skin and soft tissue in the tract of the injection was anesthetized with 1% Lidocaine. A spinal needle was then inserted deep into the hip joint at the level of the lateral femoral neck under fluoroscopic guidance. A small amount of Omnipaque solution was injected to confirm intraarticular placement. Once confirmed, the hip was injected with 5cc of 0.5% Bupivicaine and 80mg of Depo-Medrol. A bandaid was placed on the injection site. The patient tolerated the procedure well.
== END 2022-09-21 02:05 ==
LOC: DI 01:46
PROVIDERS: PCP Nurse Practitioner Family; Visit Provider Student in an Organized Health Care Education/Training Program
DX: M25.552 Pain in left hip (principal)
CPT/HCPCS: 20610; 77002; J1040

== ENCOUNTER 2023-06-04 14:57 | Outpatient (CLI) | payer MEDICARE, MEDICAID, SELFPAY ==
--- NOTE | 2023-06-04 13:30 | DI.RAD_ITS ---
Exam(s) XR FEMUR LT EXAM: XR FEMUR LT CLINICAL HISTORY: eval femur from previous frx and ORIF. TECHNIQUE: 2D digital imaging was performed. Three views. COMPARISON: Pelvis and knee 26 July 2022 FINDINGS: BONES: Hardware noted in the left acetabulum, unchanged. Bony densities again noted at the posterior acetabulum. No acute fracture is present. No bony destructive lesion is seen. Intramedullary khushboo n oted in distal femur. Old fracture deformity appears unchanged. No abnormal lucency around the hard moser. JOINTS: No dislocation present. Moderate this severe narrowing of the left hip joint space, similar to prior. Degenerative changes at the knee, stable. SOFT TISSUE: Vascular calcifications. IMPRESSION: Stable appearance of hardware in the left acetabulum and distal left femur. Stable degenerative manning ges of the hip and knee. DATA REPOSITORY: RADIATION DOSE DELIVERED:
--- NOTE | 2023-06-04 13:30 | DI.RAD_ITS ---
Exam(s) XR KNEE RT 3V AP,LAT,SUNITA EXAM: XR KNEE RT 3V AP,LAT,SUNITA CLINICAL HISTORY: eval R knee pain. TECHNIQUE: 2D digital imaging was performed. Three views. COMPARISON: CR XR KNEE LT 3V AP,LAT,SUNITA from 07/26/2022 FINDINGS: BONES: No acute fracture is present. No bony destructive lesion is seen. JOINTS: Joint spaces are maintained. The knee is normally aligned. No joint effusion is seen. Minimal periarticular spurring. SOFT TISSUE: Chronic appearing calcifications. Vascular calcifications. IMPRESSION: Minimal degenerative changes DATA REPOSITORY: RADIATION DOSE DELIVERED:
--- OUTSIDE RECORDS SUMMARY | 2023-06-04 15:00 | XMS_ITS | Continuity of Care Document ---
Author Name Unknown Organization [facility] Address [address] [place] [address] Encounter LTTL_DC FIN NBR [id number] Date(s): 02/23/22 - 02/23/22 [facility] [address], [place] [address] Encounter Diagnosis Left knee injury(Discharge Diagnosis) - 02/23/22 Injury of left hip(Discharge Diagnosis) - 02/23/22 Discharge Disposition: Home or Self Care Attending Physician: Demetrius Ronquillo MD Admitting Physician: Demetrius Ronquillo MD Allergies, Adverse Reactions, Alerts No Known Medication Allergies Medications No Known Medications Results Radiology Reports * Exam Date Time Procedure Performing Provider Status 02/23/22 1:46 PM XR Hip 2-3 Views w/AP Pelvis Left Nayla Brush; Auth (Verified) Notes: (XR Hip 2-3 Views w/AP Pelvis Left) Reason For Exam: fall XR Hip 2-3 Views w/AP Pelvis Left EXAM DESCRIPTION: XR Hip 2-3 Views w/AP Pelvis Left 02/23/2022 INDICATION: FALL TECHNIQUE: Pelvis and left hip, three views COMPARISON: None IMPRESSION: Status post ORIF of the left acetabulum with malleable plate fixation apparatus. No acute fracture or dislocation. SI joints appear symmetric and pubic symphysis appears intact. Mild deformity of the left femoral neck suggesting sequela of old injury with no hypodense fracture line identified in this region. Left hip joint space narrowing and femoral head osteophyte formation consistent with osteoarthritic changes. Apparent exostosis extending from the proximal left femur. Status post intramedullary nail fixation of the left femur, incompletely visualized Regional vascular calcification. JOB #: [id number] Final Signed by: Nic Thacker MD Signed (Electronic Signature): 02/23/2022 2:01 pm * Exam Date Time Procedure Performing Provider Status 02/23/22 1:46 PM XR Knee 3 Views Left Nayla Matta; Auth (Verified) Notes: (XR Knee 3 Views Left) Reason For Exam: fall XR Knee 3 Views Left EXAM DESCRIPTION: XR Knee 3 Views Left 02/23/2022 INDICATION: FALL COMPARISON: None IMPRESSION: No acute fracture or dislocation. Subtle curvilinear lucency in the proximal tibia on the AP view which appears to reflect trabecular pattern artifact. Status post ORIF of the left femur with intramedullary nail fixation apparatus, incompletely visualized. Deformity of the distal femoral shaft consistent with sequela of old, healed fracture Coarse soft tissue calcifications adjacent to the anterolateral aspect of the distal femur suggesting sequela of old injury. Regional vascular calcification. Faint chondrocalcinosis of the menisci. Area of soft tissue lucency in the medial calf region on the AP view which may reflect soft tissue injury. JOB #: [id number] Final Signed by: Nic Thacker MD Signed (Electronic Signature): 02/23/2022 1:52 pm Vital Signs Most recent to oldest [Reference Range]: 1 Temperature Tympanic [36.6-37.9 Deg C] 3 7.7 Deg C (02/23/22 12:04 PM) Peripheral Pulse Rate [60-100 bpm] 86 bp m (02/23/22 12:04 PM) Respiratory Rate [12-24 br/min] 18 br/mi n (02/23/22 12:04 PM) Blood Pressure [90-140/60-90 mmHg] 159/8 5mmHg *HI* (02/23/22 12:04 PM) Weight Dosing 68.04 kg (02/23/22 12:39 PM) Weight Estimated 68.04 kg (02/23/22 12:04 PM) Height/Length Dosing 173.000 cm (02/23/22 12:39 PM) Height/Length Estimated 173.000 cm (02/23/22 12:04 PM) Social History Social History Type Response Tobacco Current everyday tob acco user Tobacco Use:. Sex Hospital Discharge Instructions Patient Education 02/23/2022 13:23:36 Combined Knee Ligament Sprain Combined Knee Ligament Sprain A ligament is a tough band of tissue that connects one bone to another bone. There are four ligaments in your knee. Together, they provide stability for your knee joint. A combined knee ligament sprain is an injury that happens when more than one knee ligament is severely stretched or torn. This kind of injury is also called an injury to multiple structures of the knee. What are the causes? This condition may be caused by: ??? A direct hit (trauma) to the knee. ??? Overextending the knee. ??? Twisting the knee. What increases the risk? You are more likely to develop this condition if you participate in certain sports, including: ??? Contact sports, such as football, rugby, and lacrosse. ??? Sports that take place on uneven ground, such as soccer and cross country. ??? Sports that involve quick changes in position, such as basketball, dancing, gymnastics, and skiing. You are also more likely to develop this condition if you: ??? Have poor strength or flexibility. ??? Are overweight. ??? Have overly flexible joints (joint laxity). ??? Have previously injured your knee or had surgery on your knee. What are the signs or symptoms? Common symptoms of this condition include: ??? Swelling. ??? Severe pain with movement. ??? Pain when the injured area is touched. ??? Instability. ??? A popping sound that happens at the time of injury. ??? Not being able to stand or use the injured knee to support (bear) one's body weight. How is this diagnosed? This condition is diagnosed with a physical exam. You may also have imaging tests, such as: ??? X-ray. ??? MRI. How is this treated? Treatment depends on how badly the ligaments are injured and may include: ??? Ice applied to the affected area. ??? Medicines for pain. ??? Placing the knee in a brace or splint to prevent movement and support the joint. ??? Physical therapy to help strengthen and stabilize the knee joint. ??? Surgery to reconstruct a torn ligament. This may be done in severe cases. Follow these instructions at home: If you have a splint or brace: ??? Wear the splint or brace as told by your health care provider. Remove it only as told by your health care provider. ??? Loosen the splint or brace if your toes tingle, become numb, or turn cold and blue. ??? Keep the splint or brace clean. ??? If the splint or brace is not waterproof: ??? Do not let it get wet. ??? Cover it with a watertight covering when you take a bath or shower. Managing pain, stiffness, and swelling ??? If directed, put ice on the injured area. ??? If you have a removable splint or brace, remove it as told by your health care provider. ??? Put ice in a plastic bag. ??? Place a towel between your skin and the bag. ??? Leave the ice on for 20 minutes, 2???3 times a day. ??? Move your toes often to reduce stiffness and swelling. ??? Raise (elevate) the injured area above the level of your heart while you are sitting or lying down. Medicines ??? Take feom-hpl-rjmzyie and prescription medicines only as told by your health care provider. ??? Ask your health care provider if the medicine prescribed to you: ??? Requires you to avoid driving or using heavy machinery. ??? Can cause constipation. You may need to take actions to prevent or treat constipation, such as: ??? Drink enough fluid to keep your urine pale yellow. ??? Take uypb-fxl-hmjrnyo or prescription medicines. ??? Eat foods that are high in fiber, such as beans, whole grains, and fresh fruits and vegetables. ??? Limit foods that are high in fat and processed sugars, such as fried or sweet foods. Activity ??? Ask your health care provider when it is safe to drive if you have a splint or brace on your knee. ??? Return to your normal activities as told by your health care provider. Ask your health care provider what activities are safe for you. ??? Perform exercises daily as told by your health care provider or physical therapist. ??? Do not use the injured limb to support your body weight until your health care provider says that you can. Use crutches as told by your health care provider. General instructions ??? Do not take baths, swim, or use a hot tub until your health care provider approves. Ask your health care provider if you may take showers. You may only be allowed to take sponge baths. ??? Do not use any products that contain nicotine or tobacco, such as cigarettes, e-cigarettes, andchewing tobacco. These can delay healing. If you need help quitting, ask your health care provider. ??? Keep all follow-up visits as told by your health care provider. This is important. Contact a health care provider if: ??? Your symptoms do not improve. ??? Your symptoms get worse. ??? You develop tingling or numbness in the area of your injury. Get help right away if: ??? You develop severe numbness or tingling in your leg or foot. ??? Your foot turns blue, white, or ruffin, and it feels cold. Summary ??? A combined knee ligament sprain is an injury that happens when more than one knee ligament is severely stretched or torn. ??? Follow instructions for the care of your knee, including rest and activity, as told by your health care provider. ??? Do not use the injured limb to support your body weight until your health care provider says that you can. Use crutches as told by your health care provider. ??? Contact a health care provider if your symptoms do not improve or get worse. ??? Keep all follow-up visits as told by your health care provider. This is important. This information is not intended to replace advice given to you by your health care provider. Make sure you discuss any questions you have with your health care provider. Document Revised: 07/30/2019 Document Reviewed: 11/27/2018 [employer] Patient Education ?? 2021 [employer] 02/23/2022 13:23:28 Acute Knee Pain, Adult Acute Knee Pain, Adult Acute knee pain is sudden and may be caused by damage, swelling, or irritation of the muscles and tissues that support the knee. Pain may result from: ??? A fall. ??? An injury to the knee from twisting motions. ??? A hit to the knee. ??? Infection. Acute knee pain may go away on its own with time and rest. If it does not, your health care provider may order tests to find the cause of the pain. These may include: ??? Imaging tests, such as an X-ray, MRI, CT scan, or ultrasound. ??? Joint aspiration. In this test, fluid is removed from the knee and evaluated. ??? Arthroscopy. In this test, a lighted tube is inserted into the knee and an image is projected onto a TV screen. ??? Biopsy. In this test, a sample of tissue is removed from the body and studied under a microscope. Follow these instructions at home: If you have a knee sleeve or brace: ??? Wear the knee sleeve or brace as told by your health care provider. Remove it only as told by your health care provider. ??? Loosen it if your toes tingle, become numb, or turn cold and blue. ??? Keep it clean. ??? If the knee sleeve or brace is not waterproof: ??? Do not let it get wet. ??? Cover it with a watertight covering when you take a bath or shower. Activity ??? Rest your knee. ??? Do not do things that cause pain or make pain worse. ??? Avoid high-impact activities or exercises, such as running, jumping rope, or doing jumping jacks. ??? Work with a physical therapist to make a safe exercise program, as recommended by your health care provider. Do exercises as told by your physical therapist. Managing pain, stiffness, and swelling ??? If directed, put ice on the affected knee. To do this: ??? If you have a removable knee sleeve or brace, remove it as told by your health care provider. ??? Put ice in a plastic bag. ??? Place a towel between your skin and the bag. ??? Leave the ice on for 20 minutes, 2???3 times a day. ??? Remove the ice if your skin turns bright red. This is very important. If you cannot feel pain, heat, or cold, you have a greater risk of damage to the area. ??? If directed, use an elastic bandage to put pressure (compression) on your injured knee. This may control swelling, give support, and help with discomfort. ??? Raise (elevate) your knee above the level of your heart while you are sitting or lying down. ??? Sleep with a pillow under your knee. General instructions ??? Take fdrf-zvw-yfcruti and prescription medicines only as told by your health care provider. ??? Do not use any products that contain nicotine or tobacco, such as cigarettes, e-cigarettes, andchewing tobacco. If you need help quitting, ask your health care provider. ??? If you are overweight, work with your health care provider and a dietitian to set a weight-lossgoal that is healthy and reasonable for you. Extra weight can put pressure on your knee. ??? Pay attention to any changes in your symptoms. ??? Keep all follow-up visits. This is important. Contact a health care provider if: ??? Your knee pain continues, changes, or gets worse. ??? You have a fever along with knee pain. ??? Your knee feels warm to the touch or is red. ??? Your knee mayela or locks up. Get help right away if: ??? Your knee swells, and the swelling becomes worse. ??? You cannot move your knee. ??? You have severe pain in your knee that cannot be managed with pain medicine. Summary ??? Acute knee pain can be caused by a fall, an injury, an infection, or damage, swelling, or irritation of the tissues that support your knee. ??? Your health care provider may perform tests to find out the cause of the pain. ??? Pay attention to any changes in your symptoms. Relieve your pain with rest, medicines, light activity, and the use of ice. ??? Get help right away if your knee swells, you cannot move your knee, or you have severe pain that cannot be managed with medicine. This information is not intended to replace advice given to you by your health care provider. Make sure you discuss any questions you have with your health care provider. Document Revised: 09/22/2020 Document Reviewed: 09/22/2020 [employer] Patient Education ?? 2021 [employer] Follow Up Care 02/23/2022 12:04:41 With:Follow up with Orthopedic Address:Unknown When:1 month XR Knee - left 3 Views * Nic Thacker MD: VERIFY, VERIFY Event Display: Report EXAM DESCRIPTION: XR Knee 3 Views Left 02/23/2022 INDICATION: FALL COMPARISON: None IMPRESSION: No acute fracture or dislocation. Subtle curvilinear lucency in the proximal tibia on the AP view which appears to reflect trabecular pattern artifact. Status post ORIF of the left femur with intramedullary nail fixation apparatus, incompletely visualized. Deformity of the distal femoral shaft consistent with sequela of old, healed fracture Coarse soft tissue calcifications adjacent to the anterolateral aspect of the distal femur suggesting sequela of old injury. Regional vascular calcification. Faint chondrocalcinosis of the menisci. Area of soft tissue lucency in the medial calf region on the AP view which may reflect soft tissue injury. JOB #: [id number] Final Signed by: Nic Thacker MD Signed (Electronic Signature): 02/23/2022 1:52 pm XR Pelvis and Hip - right 2 Views * Nic Thacker MD: VERIFY, VERIFY Event Display: Report EXAM DESCRIPTION: XR Hip 2-3 Views w/AP Pelvis Left 02/23/2022 INDICATION: FALL TECHNIQUE: Pelvis and left hip, three views COMPARISON: None IMPRESSION: Status post ORIF of the left acetabulum with malleable plate fixation apparatus. No acute fracture or dislocation. SI joints appear symmetric and pubic symphysis appears intact. Mild deformity of the left femoral neck suggesting sequela of old injury with no hypodense fracture line identified in this region. Left hip joint space narrowing and femoral head osteophyte formation consistent with osteoarthritic changes. Apparent exostosis extending from the proximal left femur. Status post intramedullary nail fixation of the left femur, incompletely visualized Regional vascular calcification. JOB #: [id number] Final Signed by: Nic Thacker MD Signed (Electronic Signature): 02/23/2022 2:01 pm
== END 2023-06-04 14:58 | disposition home or self-care (01) ==
LOC: DIORS 14:57
PROVIDERS: PCP Nurse Practitioner Family; Referring Provider Nurse Practitioner Family; Visit Provider Student in an Organized Health Care Education/Training Program
DX: M12.562 Traumatic arthropathy, left knee (principal); M25.561 Pain in right knee; M12.552 Traumatic arthropathy, left hip
CPT/HCPCS: 73552; 73562; 99214

== ENCOUNTER 2024-01-07 16:04 | Inpatient (IN) | payer MEDICARE, MEDICAID, SELFPAY ==
[2024-01-07] VITALS (25 sets, daily range): BP systolic 116–157; BP diastolic 54–84; PULSE 70–101; RESP 14–24; TEMP 36.7–38.8; O2SAT 95–98
--- OUTSIDE RECORDS SUMMARY | 2024-01-07 16:11 | XMS_ITS | Encounter Summary ---
Author Organization [facility] Address [facility] [address] Care Team Providers Care Supervisor Tile And Mottle Name Role Phone Earlene Tesfaye Primary Care Provider Encounter Details Date Type Department Care Team (Late st Contact Info) Description 09/21/2022 Ancillary Procedure Radiology Library at [facility] KARIME Kay [phone] Earlene Tesfaye [address] [place], [place] [address] Social History Tobacco Use Types Packs/Day Years Used Date Smoking Tobacco: Never Assessed Sex and Gender Information Value Date Recorded Sex Assigned at Not on file Gender Identity Not on file Sexual Orientation Not on file documented as of this encounter Plan of Treatment Not on file documented as of this encounter Procedures Procedure Name Priority Date/Time Associated Diagnosis Comments FILM LIBRARY STORAGE ONLY DX HIP Routine 09/21/2022 12:00 AM EDT documented in this encounter Results * Film Library- Storage Only DX Hip (09/21/2022 12:00 AM EDT) Narrative [facility] - 06/05/2023 10:55 AM EST This exam is auto-finalizing. It's purpose is for storage only. Earlene Tesfaye IMG FILM LIBRARY OR DERABLES [facility] [place], [place] documented in this encounter Visit Diagnoses Not on filedocumented in this encounter Care Teams Supervisor Tile And Mottle Relationship Specialty Start Date End Date Earlene Tesfaye [address] [place] [address] PCP - General Family Medicine 08/03/22 documented as of this encounter
--- OUTSIDE RECORDS SUMMARY | 2024-01-07 16:11 | XMS_ITS | Clinical Summary ---
[facility] [place] [address] Care Team Providers Care Roofer Helper Vinyl Coating Name Role Phone BimalAustinEarlene Primary Care Provider Allergies No known active allergies Medications Medication Sig Dispensed Refills Start Date End Date Status OXYcodone-acetaminophen (PERCOCET) 7.5-500 mg per tablet 03/30/2004 Act so Social History Tobacco Use Types Packs/Day Years Used Date Smoking Tobacco: Never Assessed Sex and Gender Information Value Date Recorded Sex Assigned at Not on file Gender Identity Not on file Sexual Orientation Not on file Plan of Treatment Health Maintenance Due Date Last Done Comments CT Colonography 1961 Colonoscopy 1961 Colorectal Cancer Screening 1961 FIT DNA 1961 FIT 1961 Sigmoidoscopy (10 year) with FIT yearly 1961 Sigmoidoscopy 1961 HIV screen 10/28/1979 Hepatitis C Screening 10/28/1979 Lipid Screening 10/28/1979 Tdap adult 1980 Tetanus vaccine 1980 Zoster vaccine (1 of 2) 10/28/2011 Advance Directive 2016 Covid-19 Vaccine ( season) 2023 Influenza (Flu) vaccine (1 o f 1 - Influenza standard series) 12/23/2023 Care Teams Roofer Helper Vinyl Coating Relationship Specialty Start Date End Date Earlene Tesfaye [address] [place] [address] PCP - General Family Medicine 08/03/22
--- OUTSIDE RECORDS SUMMARY | 2024-01-07 16:11 | XMS_ITS | Encounter Summary ---
[place] [address] Care Team Providers Care 4Th Grade Math Teacher Name Role Phone Earlene Tesfaye Primary Care Provider Reason for Referral * Consultation (Routine) - Closed Specialty Diagnoses / Procedures Referred By Dennis powell Referred To Contact Orthopaedics Diagnoses Traumatic arthritis of left hip Traumatic arthritis of left knee Cornelius Paris MD [address] [place] [address] [facility] [address] [place] [phone] Referral ID Status Reason Start Date Expiration Date V isits Requested Visits Authorized [id number] Closed Consult, Test & Treat PCP Updated and/or Approved 06/15/2023 06/14/2024 6 6 Encounter Details Date Type Department Care Team (Latest Contact Info) Description 06/15/2023 Transcribe Orders eDH Incoming Referrals [phone] Cornelius Paris MD [address] [place], [place] [id number] Traumatic arthritis of left hip; Traumatic arthritis of left knee Social History Tobacco Use Types Packs/Day Years Used Date Smoking Tobacco: Never Assessed Sex and Gender Information Value Date Recorded Sex Assigned at Not on file Gender Identity Not on file Sexual Orientation Not on file documented as of this encounter Plan of Treatment Scheduled Referrals Name Type Priority Associated Diagnoses Order Schedule Referral to Orthopaedics Outpatient Referral Routine Traumatic Arthritis Of Left Hip Traumatic Arthritis Of Left Knee Ordered: 06/15/2023 documented as of this encounter Visit Diagnoses Diagnosis Traumatic arthritis of left hip Traumatic arthritis of left knee documented in this encounter Care Teams 4Th Grade Math Teacher Relationship Specialty Start Date End Date Earlene Tesfaye [address] [place] [address] PCP - General Family Medicine 08/03/22 documented as of this encounter
--- OUTSIDE RECORDS SUMMARY | 2024-01-07 16:11 | XMS_ITS | Encounter Summary ---
Author Organization [facility] Address [facility] [place] [address] Care Team Providers Care Delinquency Prevention Officer Name Role Phone Earlene Tesfaye Primary Care Provider Encounter Details Date Type Department Care Team (Late st Contact Info) Description 06/04/2023 Ancillary Procedure Radiology Library at [facility] K[place] Kay [phone] Earlene Tesfaye [address] [place], [place] [address] Social History Tobacco Use Types Packs/Day Years [...] Diagnosis Comments FILM LIBRARY STORAGE ONLY DX LOWER EXTREMITY Routine 06/04/2023 12:00 AM EST documented in this encounter Results * Film Library- Storage Only DX Lower Extremity (06/04/2023 12:00 AM EST) Narrative [facility] - 06/05/2023 10:51 AM EST This exam is auto-finalizing. It's purpose is for storage only. Earlene Tesfaye IMG FILM LIBRARY OR DERABLES [facility] [place], [place] documented in this encounter Visit Diagnoses Not on filedocumented in this encounter Care Teams Delinquency Prevention Officer Relationship Specialty Start Date End Date Earlene Tesfaye [address] [place] [address] PCP - General Family Medicine 08/03/22 documented as of this encounter
--- OUTSIDE RECORDS SUMMARY | 2024-01-07 16:11 | XMS_ITS | Encounter Summary ---
[place] [address] Care Team Providers Care Bandage Winding Machine Operator Name Role Phone Earlene Tesfaye Primary Care Provider [phone] Reason for Referral * Consultation (Routine) - Closed Specialty Diagnoses / Procedures Referred By Dennis powell Referred To Contact Orthopaedics Diagnoses Post-traumatic osteoarthritis of left knee Post-traumatic osteoarthritis of left hip Cornelius Paris MD [address] [place] [address] [facility] [address] [place] [phone] Referral ID Status Reason Start Date Expiration Date V isits Requested Visits Authorized [id number] Closed Consult, Test & Treat PCP Updated and/or Approved 08/03/2022 08/03/2023 6 6 Encounter Details Date Type Department Care Team (Latest Contact Info) Description 08/03/2022 Transcribe Orders eDH Incoming Referrals [phone] Cornelius Paris MD [address] [place], [place] [id number] Osteoarthritis, unspecified osteoarthritis type, unspecified site; Post-traumatic osteoarthritis of left knee; Post-traumatic osteoarthritis of left hip Social History Tobacco Use Types Packs/Day Years Used Date Smoking Tobacco: Never Assessed Sex and Gender Information Value Date Recorded Sex Assigned at Not on file Gender Identity Not on file Sexual Orientation Not on file documented as of this encounter Plan of Treatment Scheduled Referrals Name Type Priority Associated Diagnoses Orde r Schedule Referral to Orthopaedics Outpatient Referral Routine Post-Traumatic Osteoarthritis Of Left Knee Post-Traumatic Osteoarthritis Of Left Hip Ordered: 08/03/2022 documented as of this encounter Visit Diagnoses Diagnosis Osteoarthritis, unspecified osteoarthritis type, unspecified site Post-traumatic osteoarthritis of left knee Secondary localized osteoarthrosis, lower leg Post-traumatic osteoarthritis of left hip Secondary localized osteoarthrosis, pelvic region and thigh documented in this encounter Care Teams Bandage Winding Machine Operator Relationship Specialty Start Date End Date Earlene Tesfaye [address] [place] [address] PCP - General Family Medicine 08/03/22 documented as of this encounter
--- OUTSIDE RECORDS SUMMARY | 2024-01-07 16:11 | XMS_ITS | Encounter Summary ---
Author Organization [facility] Address [facility] [place] [address] Care Team Providers Care Erco Machine Operator Name Role Phone Earlene Tesfaye Primary Care Provider Encounter Details Date Type Department Care Team (Late st Contact Info) Description 06/04/2023 12:05 AM EST Ancillary Procedure Radiology Library at [facility] [place] [place] [address] Earlene Tesfaye [address] [place], [place] [id number] Social History Tobacco Use Types Packs/Day Years [...] Diagnosis Comments FILM LIBRARY STORAGE ONLY DX KNEE Routine 06/04/2023 12:05 AM EST documented in this encounter Results * Film Library- Storage Only DX Knee (06/04/2023 12:05 AM EST) Narrative [facility] - 06/05/2023 10:51 AM EST This exam is auto-finalizing. It's purpose is for storage only. Earlene Tesfaye IMG FILM LIBRARY OR DERABLES [place], [place] documented in this encounter Visit Diagnoses Not on filedocumented in this encounter Care Teams Erco Machine Operator Relationship Specialty Start Date End Date Earlene Tesfaye [address] [place] [address] PCP - General Family Medicine 08/03/22 documented as of this encounter
--- OUTSIDE RECORDS SUMMARY | 2024-01-07 16:11 | XMS_ITS | Encounter Summary ---
Author Organization [facility] Address [facility] [place] [address] Care Team Providers Care City Sanitarian Name Role Phone Marty Joseph DO Primary Care Provider [phone] Encounter Details Date Type Department Care Team (Late st Contact Info) Description 07/26/2022 Ancillary Procedure Radiology Library at [facility] [place] [address] Marty Joseph DO [address] [place] [address] Social History Tobacco Use Types Packs/Day Years [...] LIBRARY STORAGE ONLY DX LOWER EXTREMITY Routine 07/26/2022 12:00 AM EDT documented in this encounter Results * Film Library- Storage Only DX Lower Extremity (07/26/2022 12:00 AM EDT) Narrative [facility] - 08/02/2022 3:56 AM EDT This exam is auto-finalizing. It's purpose is for storage only. Marty Joseph DO IMG FILM LIBRARY ORD ERABLES [facility] [place], [place] documented in this encounter Visit Diagnoses Not on filedocumented in this encounter Care Teams City Sanitarian Relationship Specialty Start Date End Date Marty Joseph DO [address] [place] [address] PCP - General 03/15/10 08/02/22 documented as of this encounter
[2024-01-07 16:41] LABS: Bilirubin Negative (Negative); Blood Trace-lysed (Negative); Clarity Clear (Clear); Glucose Negative (Negative); Ketones 40 mg/dL (Negative); Leukocyte Esterase Negative (Negative); Nitrite Negative (Negative); Specific Gravity 1.015 (1.005-1.025); Urobilinogen 0.2 mg/dL (Up to 0.2)
[2024-01-07 16:47] LABS: Lactate 0.8 mmol/L (0.6-1.4)
[2024-01-07 16:48] LABS: Bacteria Negative HPF (Negative); C & S Indicated? No; Casts Negative LPF (Negative); Crystals Negative HPF (Negative); Epithelial Cells Rare HPF (Negative); Mucus Negative (Negative); RBC 0-2 HPF (0-2); WBC Negative HPF (0-5)
[2024-01-07 16:49] LABS: Abs Immature Grans 0.15 10^3/uL (0.0-0.06); Basophils % 0.3 %; HCT 38.2 % (40.0-50.0); HGB 13.1 g/dL (13.5-17.5); Immature Grans % 0.5 %; Lymphocytes % 7.4 %; MCH 30.5 pg (27.0-33.0); MCHC 34.3 % (32.0-36.0); MCV 89 fL (80-95); Neutrophils % 81.8 %; Platelet Count 338 10^3/uL (130-400); RBC 4.29 10^6/uL (4.36-5.78); RDW 14.5 % (11.8-14.1); RDW-SD 47.1 fL
--- NOTE | 2024-01-07 16:59 | DI.RAD_ITS ---
Exam(s) XR CHEST 2V PA LATERAL EXAM: XR CHEST 2V PA LATERAL CLINICAL HISTORY: fever TECHNIQUE: 2D digital imaging was performed. Two views. COMPARISON: No exams were available for comparison FINDINGS: HEART: Normal size. Aorta: Not dilated. PULMONARY VASCULATURE: Normal. MEDIASTINUM: Unremarkable. LUNGS: Clear. PLEURAL SPACE: No pleural effusion or pneumothorax. BONE:Unremarkable for age. SOFT TISSUES: Unremarkable. IMPRESSION: No acute abnormality. DATA REPOSITORY: RADIATION DOSE DELIVERED:
--- NOTE | 2024-01-07 16:59 | DI.RAD_ITS ---
Exam(s) XR FOREARM LT EXAM: XR FOREARM LT CLINICAL HISTORY: laceration/trauma. TECHNIQUE: 2D digital imaging was performed. Two views. COMPARISON: No exams were available for comparison FINDINGS: BONES: No acute fracture is present. Old ulnar styloid fracture. Chronic appearing deformity of the distal radius. Degenerative changes at the radial carpal joint. No bony destructive lesion is seen . Visualized portion of elbow is unremarkable. SOFT TISSUE: Soft tissue swelling and laceration of the proximal forearm. IMPRESSION: No acute bony abnormality. Soft tissue swelling. DATA REPOSITORY: RADIATION DOSE DELIVERED:
[2024-01-07 17:07] LABS: Absolute Basophil Count 0.08 10^3/uL (0.0-0.2); Absolute Lymphocyte Count 2.02 10^3/uL (1.2-3.4); Absolute Monocyte Count 2.73 10^3/uL (0.1-0.8); Absolute Neutrophil Count 22.36 10^3/uL (1.2-6.7)
[2024-01-07 17:08] LABS: Diff Comment Diff Reviewed; RBC Morphology Normal; WBC 27.33 10^3/uL (4.4-10.8)
[2024-01-07 17:09] LABS: ALT 18 U/L (16-63); AST 17 U/L (15-37); Albumin 3.5 g/dL (3.4-5.0); Alkaline Phosphatase 88 U/L (46-116); Anion Gap 9.2 mmol/L (3-11); BUN 12 mg/dL (7-18); Bilirubin, Total 1.05 mg/dL (0.2-1.0); CO2 23.8 mmol/L (21.0-32.0); Chloride 98 mmol/L (98-107); Glucose 105 mg/dL (74-106); Potassium 3.7 mmol/L (3.5-5.1); Sodium 131 mmol/L (136-145); Total Protein 7.2 g/dL (6.4-8.2)
[2024-01-07] MEDS: cefTRIAXone 2 GM/50 ML BAG IVPB (17:12)
[2024-01-07] MEDS: Acetaminophen 500 MG TAB 1000 MG PO (17:13)
[2024-01-07] MEDS: Normal Saline 1,000 ML 1000 ML IV (17:13)
[2024-01-07] MEDS: VANCOMYCIN/WATER (PEG) 1.75 GM/350 ML BAG IV (17:31)
--- OUTSIDE RECORDS SUMMARY | 2024-01-07 17:51 | XMS_ITS | Encounter Summary ---
Author Organization [facility] Address [facility] [place] [address] Care Team Providers Care Rotary Saw Operator Name Role Phone Earlene Tesfaye Primary Care Provider Encounter Details Date Type Department Care Team (Late st Contact Info) Description 06/04/2023 12:05 AM EST Ancillary Procedure Radiology Library at [facility] [place] [address] Earlene Tesfaye [address] [place], [place] [id number] Social History Tobacco Use Types Packs/Day Years [...] DX Knee (06/04/2023 12:05 AM EST) Narrative [facility] - 06/05/2023 10:51 AM EST This exam is auto-finalizing. It's purpose is for storage only. Earlene Tesfaye IMG FILM LIBRARY OR DERABLES [place], [place] documented in this encounter Visit Diagnoses Not on filedocumented in this encounter Care Teams Rotary Saw Operator Relationship Specialty Start Date End Date Earlene Tesfaye [address] [place] [address] PCP - General Family Medicine 08/03/22 documented as of this encounter
--- OUTSIDE RECORDS SUMMARY | 2024-01-07 17:51 | XMS_ITS | Encounter Summary ---
[place] [address] Care Team Providers Care Spool Cleaner Name Role Phone Earlene Tesfaye Primary Care Provider Reason for Referral * Consultation (Routine) - Closed Specialty Diagnoses / Procedures Referred By Dennis powell Referred To Contact Orthopaedics Diagnoses Traumatic arthritis of left hip Traumatic arthritis of left knee Cornelius Paris MD [address] [place] [address] [facility] [address] [place] [phone] Referral ID Status Reason Start Date Expiration Date V isits Requested Visits Authorized [id number] Closed Consult, Test & Treat PCP Updated and/or Approved 06/15/2023 06/14/2024 6 6 Encounter Details Date Type Department Care Team (Latest Contact Info) Description 06/15/2023 Transcribe Orders eDH Incoming Referrals [phone] Cornelius Paris MD [address] [place], [place] [phone] Traumatic arthritis of left hip; Traumatic arthritis [...] knee documented in this encounter Care Teams Spool Cleaner Relationship Specialty Start Date End Date Earlene Tesfaye [address] [place] [address] PCP - General Family Medicine 08/03/22 documented as of this encounter
--- OUTSIDE RECORDS SUMMARY | 2024-01-07 17:51 | XMS_ITS | Encounter Summary ---
[place] [address] Care Team Providers Care Roustabout Crew Pusher Name Role Phone Earlene Tesfaye Primary Care Provider [phone] Reason for Referral * Consultation (Routine) - Closed Specialty Diagnoses / Procedures Referred By Dennis powell Referred To Contact Orthopaedics Diagnoses Post-traumatic osteoarthritis of left knee Post-traumatic osteoarthritis of left hip Cornelius Paris MD [address] [place] [address] [facility] [address] [place] [phone] Referral ID Status Reason Start Date Expiration Date V isits Requested Visits Authorized [id number] Closed Consult, Test & Treat PCP Updated and/or Approved 08/03/2022 08/03/2023 6 6 Encounter Details Date Type Department Care Team (Latest Contact Info) Description 08/03/2022 Transcribe Orders eDH Incoming Referrals [phone] Cornelius Paris MD [address] [place], [place] [phone] Osteoarthritis, unspecified osteoarthritis type, unspecified site; Post-traumatic [...] thigh documented in this encounter Care Teams Roustabout Crew Pusher Relationship Specialty Start Date End Date Earlene Tesfaye [address] [place] [address] PCP - General Family Medicine 08/03/22 documented as of this encounter
--- OUTSIDE RECORDS SUMMARY | 2024-01-07 17:51 | XMS_ITS | Encounter Summary ---
Author Organization [facility] Address [facility] [place] [address] Care Team Providers Care Printer Assistant Name Role Phone Earlene Tesfaye Primary Care Provider [phone] Encounter Details Date Type Department Care Team (Late st Contact Info) Description 09/21/2022 Ancillary Procedure Radiology Library at [facility] [place] [address] Earlene Tesfaye [address] [place], [place] [address] Social History Tobacco Use Types Packs/Day Years [...] DX Hip (09/21/2022 12:00 AM EDT) Narrative [facility] - 06/05/2023 10:55 AM EST This exam is auto-finalizing. It's purpose is for storage only. Earlene Tesfaye IMG FILM LIBRARY OR DERABLES [facility] [place], [place] documented in this encounter Visit Diagnoses Not on filedocumented in this encounter Care Teams Printer Assistant Relationship Specialty Start Date End Date Earlene Tesfaye [address] [place] [address] PCP - General Family Medicine 08/03/22 documented as of this encounter
--- OUTSIDE RECORDS SUMMARY | 2024-01-07 17:51 | XMS_ITS | Clinical Summary ---
[facility] [place] [address] Care Team Providers Care Diamond Blender Name Role Phone BimalAustinEarlene Primary Care Provider [phone] Allergies No known active allergies Medications Medication [...] - Influenza standard series) 12/23/2023 Care Teams Diamond Blender Relationship Specialty Start Date End Date Earlene Tesfaye [address] [place] [address] PCP - General Family Medicine 08/03/22
--- OUTSIDE RECORDS SUMMARY | 2024-01-07 17:51 | XMS_ITS | Encounter Summary ---
Author Organization [facility] Address [facility] [place] [address] Care Team Providers Care Big Data Platform Architect Name Role Phone Earlene Tesfaye Primary Care Provider [phone] Encounter Details Date Type Department Care Team (Late st Contact Info) Description 06/04/2023 Ancillary Procedure Radiology Library at [facility] [place] [address] Earlene Tesfaye [address] [place], [place] [address] Social History Tobacco Use Types Packs/Day Years [...] Lower Extremity (06/04/2023 12:00 AM EST) Narrative [facility] - 06/05/2023 10:51 AM EST This exam is auto-finalizing. It's purpose is for storage only. Earlene Tesfaye IMG FILM LIBRARY OR DERABLES [facility] [place], [place] documented in this encounter Visit Diagnoses Not on filedocumented in this encounter Care Teams Big Data Platform Architect Relationship Specialty Start Date End Date Earlene Tesfaye [address] [place] [address] PCP - General Family Medicine 08/03/22 documented as of this encounter
--- OUTSIDE RECORDS SUMMARY | 2024-01-07 17:51 | XMS_ITS | Encounter Summary ---
Author Organization [facility] Address [facility] [place] [address] Care Team Providers Care Scoop Filler Name Role Phone Marty Joseph DO Primary Care Provider [phone] Encounter Details Date Type Department Care Team (Late st Contact Info) Description 07/26/2022 Ancillary Procedure Radiology Library at [facility] [place] [address] Marty Joseph DO [address] [place] [address] Social History Tobacco Use Types [...] Lower Extremity (07/26/2022 12:00 AM EDT) Narrative [facility] - 08/02/2022 3:56 AM EDT This exam is auto-finalizing. It's purpose is for storage only. Marty Joseph DO IMG FILM LIBRARY ORD ERABLES [facility] [place] documented in this encounter Visit Diagnoses Not on filedocumented in this encounter Care Teams Scoop Filler Relationship Specialty Start Date End Date Marty Joseph DO [address] [place] [address] PCP - General 03/15/10 08/02/22 documented as of this encounter
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
[2024-01-07 19:21] LABS: COVID-19 PCR Negative (Negative); Influenza A PCR Negative (Negative); Influenza B PCR Negative (Negative); RSV PCR Negative (Negative)
[2024-01-07 19:24] LABS: Source NASOPHARYNX
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
--- OUTSIDE RECORDS SUMMARY | 2024-01-07 20:52 | XMS_ITS | Encounter Summary ---
[place] [address] Care Team Providers Care Pulp Refiner Operator Name Role Phone Earlene Tesfaye Primary Care Provider [phone] Reason for Referral * Consultation (Routine) - Closed Specialty Diagnoses / Procedures Referred By Dennis powell Referred To Contact Orthopaedics Diagnoses Traumatic arthritis of left hip Traumatic arthritis of left knee Cornelius Paris MD [address] [place] [address] [facility] [address] [place] [phone] Referral ID Status Reason Start Date Expiration Date V isits Requested Visits Authorized [id number] Closed Consult, Test & Treat PCP Updated and/or Approved 06/15/2023 06/14/2024 6 6 Encounter Details Date Type Department Care Team (Latest Contact Info) Description 06/15/2023 Transcribe Orders eDH Incoming Referrals [phone] Cornelius Paris MD [address] [place], [place] [id number] Traumatic arthritis of left hip; Traumatic arthritis [...] knee documented in this encounter Care Teams Pulp Refiner Operator Relationship Specialty Start Date End Date Earlene Tesfaye [address] [place] [address] PCP - General Family Medicine 08/03/22 documented as of this encounter
--- OUTSIDE RECORDS SUMMARY | 2024-01-07 20:52 | XMS_ITS | Encounter Summary ---
Author Organization [facility] Address [facility] [place] [address] Care Team Providers Care Linseed Oil Refiner Name Role Phone Earlene Tesfaye Primary Care Provider [phone] Encounter Details Date Type Department Care Team (Late st Contact Info) Description 09/21/2022 Ancillary Procedure Radiology Library at [facility] [place] [address] Earlene Tesfaye [address] [place], [place] [address] Social History Tobacco Use Types Packs/Day Years [...] DX Hip (09/21/2022 12:00 AM EDT) Narrative [facility] - 06/05/2023 10:55 AM EST This exam is auto-finalizing. It's purpose is for storage only. Earlene Tesfaye IMG FILM LIBRARY OR DERABLES [facility] [place], [place] documented in this encounter Visit Diagnoses Not on filedocumented in this encounter Care Teams Linseed Oil Refiner Relationship Specialty Start Date End Date Earlene Tesfaye [address] [place] [address] PCP - General Family Medicine 08/03/22 documented as of this encounter
--- OUTSIDE RECORDS SUMMARY | 2024-01-07 20:52 | XMS_ITS | Encounter Summary ---
[place] [address] Care Team Providers Care Tour Sales Representative Name Role Phone Earlene Tesfaye Primary Care Provider [phone] Reason for Referral * Consultation (Routine) - Closed Specialty Diagnoses / Procedures Referred By Dennis powell Referred To Contact Orthopaedics Diagnoses Post-traumatic osteoarthritis of left knee Post-traumatic osteoarthritis of left hip Cornelius Paris MD [address] [place] [address] [facility] [address] [place] [phone] Referral ID Status Reason Start Date Expiration Date V isits Requested Visits Authorized [id number] Closed Consult, Test & Treat PCP Updated and/or Approved 08/03/2022 08/03/2023 6 6 Encounter Details Date Type Department Care Team (Latest Contact Info) Description 08/03/2022 Transcribe Orders eDH Incoming Referrals [phone] Cornelius Paris MD [address] [place], [place] [id number] Osteoarthritis, unspecified osteoarthritis type, unspecified site; Post-traumatic [...] thigh documented in this encounter Care Teams Tour Sales Representative Relationship Specialty Start Date End Date Earlene Tesfaye [address] [place] [address] PCP - General Family Medicine 08/03/22 documented as of this encounter
--- OUTSIDE RECORDS SUMMARY | 2024-01-07 20:52 | XMS_ITS | Encounter Summary ---
Author Organization [facility] Address [facility] [place] [address] Care Team Providers Care Airport Operations Supervisor Name Role Phone Earlene Tesfaye Primary Care Provider Encounter Details Date Type Department Care Team (Late st Contact Info) Description 06/04/2023 12:05 AM EST Ancillary Procedure Radiology Library at [facility] [place] [address] Earlene Tesfaye [address] [place], [place] [id number] Social History Tobacco Use Types Packs/Day Years [...] DX Knee (06/04/2023 12:05 AM EST) Narrative [facility] - 06/05/2023 10:51 AM EST This exam is auto-finalizing. It's purpose is for storage only. Earlene Tesfaye IMG FILM LIBRARY OR DERABLES [place], [place] documented in this encounter Visit Diagnoses Not on filedocumented in this encounter Care Teams Airport Operations Supervisor Relationship Specialty Start Date End Date Earlene Tesfaye [address] [place] [address] PCP - General Family Medicine 08/03/22 documented as of this encounter
--- OUTSIDE RECORDS SUMMARY | 2024-01-07 20:52 | XMS_ITS | Encounter Summary ---
Author Organization [facility] Address [facility] [place] [address] Care Team Providers Care Retreader Name Role Phone Earlene Tesfaye Primary Care Provider Encounter Details Date Type Department Care Team (Late st Contact Info) Description 06/04/2023 Ancillary Procedure Radiology Library at [facility] [place] [address] Earlene Tesfaye [address] [place], [place] [address] Social History Tobacco Use Types Packs/Day Years [...] Lower Extremity (06/04/2023 12:00 AM EST) Narrative [facility] - 06/05/2023 10:51 AM EST This exam is auto-finalizing. It's purpose is for storage only. Earlene Tesfaye IMG FILM LIBRARY OR DERABLES [facility] [place], [place] documented in this encounter Visit Diagnoses Not on filedocumented in this encounter Care Teams Retreader Relationship Specialty Start Date End Date Earlene Tesfaye [address] [place] [address] PCP - General Family Medicine 08/03/22 documented as of this encounter
--- OUTSIDE RECORDS SUMMARY | 2024-01-07 20:52 | XMS_ITS | Clinical Summary ---
Author [facility] [place] [address] Care Team Providers Care Director Corporate Name Role Phone BimalAustinEarlene Primary Care Provider [phone] Allergies No known active allergies Medications Medication [...] - Influenza standard series) 12/23/2023 Care Teams Director Corporate Relationship Specialty Start Date End Date Earlene Tesfaye [address] [place] [address] PCP - General Family Medicine 08/03/22
--- OUTSIDE RECORDS SUMMARY | 2024-01-07 20:52 | XMS_ITS | Encounter Summary ---
Author Organization [facility] Address [facility] [place] [address] Care Team Providers Care Web Editor Name Role Phone Marty Joseph DO Primary Care Provider [phone] Encounter Details Date Type Department Care Team (Late st Contact Info) Description 07/26/2022 Ancillary Procedure Radiology Library at [facility] [place] [address] Marty Joseph DO [address] [place] [address] Social History Tobacco Use Types [...] Lower Extremity (07/26/2022 12:00 AM EDT) Narrative [facility] - 08/02/2022 3:56 AM EDT This exam is auto-finalizing. It's purpose is for storage only. Marty Joseph DO IMG FILM LIBRARY ORD ERABLES [facility] [place], [place] documented in this encounter Visit Diagnoses Not on filedocumented in this encounter Care Teams Web Editor Relationship Specialty Start Date End Date Marty Joseph DO [address] [place] [address] PCP - General 03/15/10 08/02/22 documented as of this encounter
[2024-01-07] MEDS: Enoxaparin 40 MG/0.4 ML SYR SC (22:19)
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
[2024-01-07] MEDS: Normal Saline 1,000 ML 125 ML IV (23:00)
[2024-01-08] VITALS (7 sets, daily range): BP systolic 110–134; BP diastolic 53–86; PULSE 60–83; RESP 16–18; TEMP 36.3–37.1; O2SAT 96–98
[2024-01-08] MEDS: Acetaminophen 325 MG TAB PO (01:12)
[2024-01-08] MEDS: Ibuprofen 400 MG TAB PO ×2 (06:25→21:47)
[2024-01-08] MEDS: Nicotine 14 MG/24 HR PATCH TD ×2 (06:25→17:40)
[2024-01-08 07:26] LABS: HCT 35.7 % (40.0-50.0); HGB 12.3 g/dL (13.5-17.5); MCH 30.9 pg (27.0-33.0); MCHC 34.5 % (32.0-36.0); MCV 90 fL (80-95); MPV 9.8 fL (8.0-11.0); Platelet Count 321 10^3/uL (130-400); RBC 3.98 10^6/uL (4.36-5.78); RDW 14.9 % (11.8-14.1); RDW-SD 48.9 fL; WBC 21.35 10^3/uL (4.4-10.8)
[2024-01-08] MEDS: Normal Saline 1,000 ML 125 ML IV ×2 (07:27→17:45)
[2024-01-08] MEDS: Lisinopril 10 MG TAB PO (07:56)
[2024-01-08] MEDS: amLODIPine 2.5 MG TAB PO (07:57)
[2024-01-08 07:58] LABS: ALT 13 U/L (16-63); AST 12 U/L (15-37); Albumin 2.8 g/dL (3.4-5.0); Alkaline Phosphatase 79 U/L (46-116); Anion Gap 10.7 mmol/L (3-11); BUN 11 mg/dL (7-18); Bilirubin, Total 0.75 mg/dL (0.2-1.0); CO2 22.3 mmol/L (21.0-32.0); CREATININE 0.9 mg/dL (0.70-1.30); Calcium 8.1 mg/dL (8.5-10.1); Chloride 105 mmol/L (98-107); Estimated GFR 96.57 (mL/min/1.73m2); Glucose 89 mg/dL (74-106); Magnesium 1.9 mg/dL (1.8-2.4); Potassium 3.9 mmol/L (3.5-5.1); Sodium 138 mmol/L (136-145); Total Protein 6.2 g/dL (6.4-8.2); Vancomycin, Random 8.6 ug/mL
--- NOTE | 2024-01-08 09:43 | PDOC.CMIN ---
Date of service: 01/08/24 Time of Service: 09:43 Care Management Initial Assmt Initial Assessment Reason for Hospitalization: sepsis Functional Status/Living Situation Patient Presentation: Alejo, as Milton prefers to be called, was sitting up in bed visiting with his and daughter., when CM met with him. He was pleasant in manner and agreeable to conversation. Alejo has a total of 6 children and all but one live locally. He described his family as very close with frequent contact. 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 He lives in [place] with his Alessandra in a single family home. He does not receive any community services and is independent at baseline. [facility] Residence: [facility] Resides with: Spouse (Susan Cornelius) Employment Status: Employed (construction) Instrumental Activities of Daily Living (ADLs): Independent Medications Medication Management: No Issues/Barriers identified Physical Functioning/Mobility Assistive Device: none Advance Directives Advance Directives: Do you have an Advance Directive: N 12/13/14 14:42 AD On File at [facility]: N 12/13/14 14:42 Date Asked 01/07/24 01/07/24 16:09 AD Date Reviewed COLST On File at [facility] No 01/07/24 16:09 COLST Date Scanned Code Status Resuscitation Status Full Code Portal Pt does not currently have a portal and education provided: No Insurance Coverage/Financial Issues Insurance: Medicare Medicaid Care Team Visit Care Team Role Provider Type Earlene Brien Primary Care Provider NURSE PRACTITIONER NBA Sellers Emergency Provider PHYSICIANS WOOD GETTER Toni Malhotra Admit Provider NON-[facility] STAFF PHYSICIAN Attending Provider Discharge Potential Discharge Needs: PCP F/U Appt and Surgical F/U Appt Anticipated Barriers to Discharge: None Identified Patient/Family Education Needs: Review discharge instructions, discuss Ask Me Three Transportation: Private vehicle Plan: Anticipate Milton will be discharged home with no new services when medically cleared. He will follow up with his PCP and plan of care and transport with family. CM will follow and continue to assess for discharge needs. PFSH All Active Problems Lymphangitis (Acute) Cellulitis (Acute) Sepsis (Acute) Abrasion of left upper extremity (Acute) Cellulitis of left upper extremity (Acute) Right knee pain (Acute) Traumatic arthritis of left hip (Acute) Traumatic arthritis of left knee (Acute) Fracture of distal end of fibula (Acute) Left rotator cuff tear (Acute) Injection: 07/04/18 Medical History Chronic low back pain Anxiety Smoker TBI (traumatic brain injury) Hypertension Surgical History History of splenectomy History of open heart surgery History of knee surgery Colonoscopy - IV Sedation (10/02/16) Appendectomy Social History Smoking/Tobacco Use Status: Current-Occasional Tobacco Type: cigarettes Smoking risk assessment performed?: Yes Alcohol Intake: former Drug use: Occasionally Substance use type: marijuana Housing: house Do you feel safe at home: Yes Do you feel safe in your relationship?: Yes SDOH(Care Management) Screening Will the Patient Participate in the Screening?: Yes Do you worry about having a steady place to live?: no Problems where you live: no known problems In the past 12 months, have you had to go without electric, gas, oil or water in your home?: no Have you or anyone in your house had to go without enough food to eat?: no Has lack of transportation kept you from medical appointments or from doing things needed for daily living?: no Has anyone in your support network made you feel unsafe for any reason?: no
[2024-01-08] MEDS: VANCOMYCIN/WATER (PEG) 1 GM/200 ML BAG IVPB ×2 (10:09→21:48)
--- NOTE | 2024-01-08 12:06 | W.PM.PROGNOT ---
Date of Service Date of service: 01/08/24 Time of Service: 12:06 Assessment and Plan Assessment and plan (1) Sepsis: Start date: 01/07/24 Status: Acute Assessment and plan: Avulsion injury left forearm about 3 days ago He did meet sepsis criteria and was started on IV fluids as well as IV antibiotics with ceftriaxone 2 g every 24 hours and vancomycin pharmacy dosing. Blood cultures pending. Wound gm stain many gram positive cocci; cx pending Convert to oral antibiotics when stable Lactic acid 0.8 WBC 21.35 HR 67 RR 18 BP 116/60 SPO2 97% RA Qualifiers: Sepsis acute organ dysfunction status: without acute organ dysfunction Sepsis type: sepsis due to unspecified organism Qualified Code(s): A41.9 - Sepsis, unspecified organism (2) Cellulitis of left upper extremity: Start date: 01/07/24 Status: Acute Assessment and plan: Avulsion injury left forearm about 3 days ago Wound consult pending Tetanus UTD Continue IV antibiotic therapy as above with patient having sepsis without acute organ dysfunction or hypotension upon presentation. (3) Abrasion of left upper extremity: Start date: 01/07/24 Status: Acute Assessment and plan: Wound care consultation with nursing to also address wound care daily. Tetanus UTD Qualifiers: Encounter type: initial encounter Qualified Code(s): S40.812A - Abrasion of left upper arm, initial encounter Subjective Subjective Patient reports: no new complaints, pain is less, tolerating liquids well, tolerating a regular diet, bowel movement and afebrile; denies flatus, diarrhea, nausea, vomiting or shortness of breath Exam Const General: cooperative, healthy appearing, no acute distress, well developed and well groomed Nutritional Appearance: average body habitus and well nourished Orientation: alert and awake Neck Neck: normal visual inspection, full ROM, no lymphadenopathy and no meningeal signs Resp Effort & Inspection: normal respiratory effort and able to speak in complete sentences Auscultation: clear to auscultation bilaterally, no rales, no rhonchi and no wheezes Cardio Rate: regular rate Rhythm: regular rhythm Heart Sounds: S1 normal and S2 normal Back/Spine/Pelvis Cervical Spine: normal cervical lordosis, cervical ROM normal (reports some discomfort with flexion in the upper left thoracic spine), No cervical muscular tenderness, No cervical spasm, No cervical spinal tenderness and No step off deformity Thoracic/Lumbar Spine: thoraco-lumbar ROM normal, No pain with thoraco-lumbar ROM, paraspinal tenderness (left upper thoracic and along trapezius), No thoracic spinal tenderness and No lumbar spinal tenderness Skin Trauma: other (3 x 4 cm avulsion abrasion without purulent dc left FA, erythema & swelling) Neuro General: patient alert and patient awake Cognition: normal cognition Speech: speech normal Gait: normal gait Motor: muscle tone normal throughout, strength 5/5 throughout, no movement abnormalities noted and no fasciculations Sensory Exam: no sensory deficits noted (no saddle paresthesias) Extrem General: normal to inspection, full ROM, capillary refill normal, no joint enlargement, no pedal edema, no calf tenderness and normal gait Psych Appearance: grossly normal and well kempt Mental Status: mental status grossly normal Speech and Movement: speech and movement normal Objective Last Vital Signs Temp 36.9 C 01/08/24 11:15 Pulse 67 01/08/24 11:15 Resp 18 01/08/24 11:15 BP 116/60 01/08/24 11:15 Pulse Ox 97 01/08/24 11:15 Laboratory Results - last 24 hr 01/07/24 01/07/24 01/07/24 16:22 16:35 18:30 WBC 27.33 H* RBC 4.29 L Hgb 13.1 L Hct 38.2 L MCV 89 MCH 30.5 MCHC 34.3 RDW 14.5 H Plt Count 338 MPV 9.0 Immature Gran % 0.5 Neutrophils % 81.8 Lymphocytes % 7.4 Monocytes % 10.0 Eosinophils % 0.0 Basophils % 0.3 Nucleated RBC % 0.0 Absolute Neutrophils 22.36 H Absolute Lymphocytes 2.02 Absolute Monocytes 2.73 H Absolute Eosinophils 0.00 Absolute Basophils 0.08 RBC Morphology Normal VBG Lactate 0.8 Sodium 131 L Potassium 3.7 Chloride 98 Carbon Dioxide 23.8 Anion Gap 9.2 BUN 12 Creatinine 1.0 Est GFR (CKD-EPI 2020) 85.10 Glucose 105 Calcium 9.0 Magnesium Total Bilirubin 1.05 H AST 17 ALT 18 Alkaline Phosphatase 88 Total Protein 7.2 Albumin 3.5 Urine Color Yellow Urine Clarity Clear Urine pH 6.0 Ur Specific [place] 1.015 Urine Protein Negative Urine Ketones 40 H Urine Blood Trace-lysed H Urine Nitrite Negative Urine Bilirubin Negative Urine Urobilinogen 0.2 Ur Leukocyte Esterase Negative Urine RBC 0-2 Urine WBC Negative Ur Epithelial Cells Rare Urine Crystals Negative Urine Bacteria Negative Urine Casts Negative Urine Mucus Negative Ur Culture Indicated? No Urine Glucose Negative Random Vancomycin COVID-19 Source NASOPHARYNX SARS-CoV-2 (PCR) Negative Influenza Type A (PCR) Negative Influenza Type B (PCR) Negative RSV (PCR) Negative 01/08/24 06:03 WBC 21.35 H RBC 3.98 L Hgb 12.3 L Hct 35.7 L MCV 90 MCH 30.9 MCHC 34.5 RDW 14.9 H Plt Count 321 MPV 9.8 Immature Gran % Neutrophils % Lymphocytes % Monocytes % Eosinophils % Basophils % Nucleated RBC % Absolute Neutrophils Absolute Lymphocytes Absolute Monocytes Absolute Eosinophils Absolute Basophils RBC Morphology VBG Lactate Sodium 138 Potassium 3.9 Chloride 105 Carbon Dioxide 22.3 Anion Gap 10.7 BUN 11 Creatinine 0.9 Est GFR (CKD-EPI 2020) 96.57 Glucose 89 Calcium 8.1 L Magnesium 1.9 Total Bilirubin 0.75 AST 12 L ALT 13 L Alkaline Phosphatase 79 Total Protein 6.2 L Albumin 2.8 L Urine Color Urine Clarity Urine pH Ur Specific [place] Urine Protein Urine Ketones Urine Blood Urine Nitrite Urine Bilirubin Urine Urobilinogen Ur Leukocyte Esterase Urine RBC Urine WBC Ur Epithelial Cells Urine Crystals Urine Bacteria Urine Casts Urine Mucus Ur Culture Indicated? Urine Glucose Random Vancomycin 8.6 COVID-19 Source SARS-CoV-2 (PCR) Influenza Type A (PCR) Influenza Type B (PCR) RSV (PCR) PAWSS Have you Been Recently Intoxicated or Drunk Within the Last 30 days?: No Have you Ever Experienced Previous Episodes of Alcohol Withdrawal?: No Have you ever Experienced Withdrawal Seizures?: No Have you ever Experienced Delirium Tremens(DT)s?: No Have you ever undergone Alcohol Rehabilitation Treatment (i.e, inpt ot outpatient treatment programs)?: No Have you ever Experienced Blackouts?: No Have you ever Combined Alcohol with other Downers within the last 90 days?: No Have you ever Combined Alcohol with any other Substance of Abuse during the last 90 days?: No Positive Blood Alcohol level on Presentation? [PCS.BAL]: No Evidence of Increased Autonomic Activity (i.e. HR>120, tremor, sweating, agitation, nausea)?: No Result: 0 Time Spent with Patient Time Spent with Patient: 35-49 minutes Time was spent: preparing to see the patient(eg.review tests), ordering medications,tests, procedures, referring, communicating with other health manager home healthcare, indepentently interpreting results, counseling the patient and care coordination
--- NOTE | 2024-01-08 14:04 | PHA.REVIEW2 ---
Pharmacy Admission Review Admission Clinical Review Admission Pharmacy Review: Sepsis (Acute) Abrasion of left upper extremity (Acute) Cellulitis of left upper extremity (Acute) No Known Allergies Allergy (Verified 01/07/24 16:15) Resuscitation Status Full Code Height 5 ft 6 in Weight 67 kg Pharmacy Admission Review Renal Dosing Renal Dosing: BUN 11 mg/dL (7-18) 01/08/24 06:03 Creatinine 0.9 mg/dL (0.70-1.30) 01/08/24 06:03 Medications needing adjustments: Reviewed (CrCl 72 mL/min) List of meds needing interventions: Current medications are okay Anticoagulation Anticoagulation: Hgb 12.3 g/dL (13.5-17.5) L 01/08/24 06:03 Hct 35.7 % (40.0-50.0) L 01/08/24 06:03 Plt Count 321 10^3/uL (130-400) 01/08/24 06:03 Creatinine 0.9 mg/dL (0.70-1.30) 01/08/24 06:03 DVT Prophylaxis: Reviewed (Hgb decreased from 13.3) Medications: Enoxaparin (40mg daily) Relevant Labs Relevant Labs: Sodium 138 mmol/L (136-145) 01/08/24 06:03 Potassium 3.9 mmol/L (3.5-5.1) 01/08/24 06:03 Chloride 105 mmol/L (98-107) 01/08/24 06:03 Magnesium 1.9 mg/dL (1.8-2.4) 01/08/24 06:03 Electrolytes, C-Reactive P, ESR: Reviewed Cardiac Review BP, HR, EF%: Reviewed (HR and BP WNL) List meds needing interventions: Has order for amlodipine 2.5mg daily and lisinopril 10mg daily QTc Review QTc: Reviewed (413 from 11/27/19 - most recent EKG on file) IV to PO Switch IV Medications: Reviewed (ceftriaxone and vancomycin) Home Meds Home Med List reviewed: Reviewed Current Meds Current Medication Order Review: Intervened Comments: Added IV admission order set Pharmacy Antibiotic Review Relevant Labs: WBC 21.35 10^3/uL (4.4-10.8) H 01/08/24 06:03 Temperature 36.9 C Temperature 36.6 C Temperature 36.5 C Microbiology 01/07/24 18:05 Wound Culture - Preliminary Humerus - Left Strep Pyogenes (Group A) Normal Margarita Gram Stain - Final Pharmacy Antibiotic Activity: C/S review and Reviewed, no change Comments: Patient is on ceftriaxone and vancomycin, day 1, for cellulitis/sepsis. Vancomycin level this morning was 8.6 at 0603. Dose was changed to 1000mg q12h with predicted AUC of 506 and trough of 16.5. Repeat level ordered for tomorrow morning with labs. WBC decreased from 27.33 and blood cultures are pending.
[2024-01-08 14:33] LABS: C-Reactive Protein 7.36 mg/dL (<or=0.5)
[2024-01-08] MEDS: cefTRIAXone 2 GM/50 ML BAG IVPB (16:34)
[2024-01-08] MEDS: HYDROmorphone 2 MG/ML SYR 0.5 MG IVP (17:41)
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
[2024-01-08] MEDS: Enoxaparin 40 MG/0.4 ML SYR SC (21:47)
[2024-01-08 22:14] LABS: Lab Add On Test DONE
[2024-01-08] MEDS: Mupirocin 2% Oint. 22 GM TUBE TP (22:34)
[2024-01-09] MEDS: Normal Saline 1,000 ML 125 ML IV (03:39)
[2024-01-09 07:17] LABS: Abs Immature Grans 0.06 10^3/uL (0.0-0.06); Absolute Basophil Count 0.06 10^3/uL (0.0-0.2); Absolute Neutrophil Count 12.99 10^3/uL (1.2-6.7); Basophils % 0.3 %; Eosinophils % 4.9 %; HCT 37.3 % (40.0-50.0); HGB 12.5 g/dL (13.5-17.5); Immature Grans % 0.3 %; Lymphocytes % 13.5 %; MCH 30.6 pg (27.0-33.0); MCHC 33.5 % (32.0-36.0); MCV 91 fL (80-95); MPV 9.9 fL (8.0-11.0); Monocytes % 10.7 %; Neutrophils % 70.3 %; Platelet Count 288 10^3/uL (130-400); RBC 4.08 10^6/uL (4.36-5.78); RDW 14.9 % (11.8-14.1); RDW-SD 50.6 fL; WBC 18.48 10^3/uL (4.4-10.8)
[2024-01-09 07:27] LABS: Anion Gap 8.2 mmol/L (3-11); BUN 8 mg/dL (7-18); C-Reactive Protein 5.66 mg/dL (<or=0.5); CO2 21.8 mmol/L (21.0-32.0); CREATININE 0.8 mg/dL (0.70-1.30); Calcium 8.3 mg/dL (8.5-10.1); Chloride 108 mmol/L (98-107); Estimated GFR 100.06 (mL/min/1.73m2); Glucose 85 mg/dL (74-106); Magnesium 1.6 mg/dL (1.8-2.4); Potassium 3.6 mmol/L (3.5-5.1); Sodium 138 mmol/L (136-145)
[2024-01-09 07:29] LABS: Absolute Eosinophil Count 0.91 10^3/uL (0.0-0.7); Absolute Lymphocyte Count 2.49 10^3/uL (1.2-3.4); Absolute Monocyte Count 1.98 10^3/uL (0.1-0.8)
[2024-01-09 07:33] VITALS: BP 155/81; PULSE 83; RESP 18; TEMP 36.6; O2SAT 98
[2024-01-09 07:48] LABS: Diff Comment Diff Reviewed; RBC Morphology Normal
[2024-01-09] MEDS: Mupirocin 2% Oint. 22 GM TUBE TP ×2 (07:50→13:55)
[2024-01-09] MEDS: amLODIPine 2.5 MG TAB PO (07:50)
[2024-01-09] MEDS: Lisinopril 10 MG TAB PO (07:50)
--- NOTE | 2024-01-09 09:57 | PDOC.CMPRO ---
Date of service: 01/09/24 Time of Service: 09:57 Care Management Progress Note Discharge Potential Discharge Needs: PCP F/U Appt Anticipated Barriers to Discharge: None Identified Patient/Family Education Needs: Review discharge instructions, discuss Ask Me Three Transportation: Private vehicle Plan: Anticipate Alejo will be discharged home with no new services when medically cleared. He will follow up with his PCP and plan of care and transport with family. CM will follow and continue to assess for discharge needs. SDOH(Care Management) Screening Will the Patient Participate in the Screening?: Yes Do you worry about having a steady place to live?: no Problems where you live: no known problems In the past 12 months, have you had to go without electric, gas, oil or water in your home?: no Have you or anyone in your house had to go without enough food to eat?: no Has lack of transportation kept you from medical appointments or from doing things needed for daily living?: no Has anyone in your support network made you feel unsafe for any reason?: no
[2024-01-09] MEDS: VANCOMYCIN/WATER (PEG) 1.25 GM/250 ML BAG IVPB (10:52)
[2024-01-09 11:25] VITALS: BP 143/87; PULSE 66; RESP 18; TEMP 37.2; O2SAT 95
[2024-01-09] MEDS: MAGNESIUM SULFATE 2 GM/50 ML BAG IVINF (13:09)
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
[2024-01-09] MEDS: cefTRIAXone 2 GM/50 ML BAG IVPB (15:14)
--- NOTE | 2024-01-09 16:40 | CHAPLAIN ---
Milton was sitting up in bed, getting IV antibiotics when I visited. He told me about getting his arm scraped at work. He's a builder. And a few days later in became infected and he was septic, he said. He's waiting for one last bag of IV fluids before he can be discharged. Raymond said he was surprised how quickly his arm became infected because he had bandaged it carefully. His arrived as I was leaving.
--- NOTE | 2024-01-09 19:02 | CMDISCH_ITS ---
Date of service: 01/09/24 Time of Service: 19:02 LACE Index Scoring Tool Questions: Length of Stay (in days): 2 Was the patient admitted via the E.D.?: Yes E.D. Visits: 1 Answers: Total Score: 6 Risk of Readmission: Low Risk Care Management Discharge Plan Reason for Hospitalization: cellulitis Discharge Plan: Alejo will be discharged home with no new services. He will follow up with his PCP and plan of care and transport with his . Patient/Family Education Needs: Review discharge instructions, limitations, follow up plan, wound care and discuss Ask Me Three [facility] Health Related Social Needs: No Data to Display
== END 2024-01-09 16:40 | disposition home or self-care (01) | DRG 872 ==
LOC: ER 17:49 → MS 20:50
PROVIDERS: Nurse Practitioner Family; Admitting Provider Family Medicine; Emergency Provider Physician Assistant; PCP Nurse Practitioner Family; Visit Provider Family Medicine
DX: A41.9 Sepsis, unspecified organism (principal); L03.114 Cellulitis of left upper limb; I10 Essential (primary) hypertension; F17.210 Nicotine dependence, cigarettes, uncomplicated; F41.9 Anxiety disorder, unspecified; S40.812A Abrasion of left upper arm, initial encounter; Z87.820 Personal history of traumatic brain injury; W22.8XXA Striking against or struck by other objects, initial encounter; Y99.0 Civilian activity done for income or pay; G89.29 Other chronic pain; M54.50 Low back pain, unspecified; F12.90 Cannabis use, unspecified, uncomplicated; M17.32 Unilateral post-traumatic osteoarthritis, left knee; M16.32 Unilateral osteoarthritis resulting from hip dysplasia, left hip; B95.0 Streptococcus, group A, as the cause of diseases classified elsewhere
CPT/HCPCS: 00123; 36415; 80048; 80053; 85027; 87040; 87077; 87637; 96365; 96366; 96367; 99221; 99291; J1650; 71046; 73090; 80202; 81003; 81015; 83605; 83735; 85025; 86140; 87070; 87205; 99223; 99232; 99239; J0696; J1170; J3372; J3475

== ENCOUNTER 2024-02-06 17:37 | Emergency (ER) | payer MEDICARE, MEDICAID, SELFPAY ==
--- OUTSIDE RECORDS SUMMARY | 2024-02-06 17:44 | XMS_ITS | Encounter Summary ---
Author Organization [facility] Address [facility] [place] [address] Care Team Providers Care Box Builder Name Role Phone Earlene Tesfaye Primary Care Provider Encounter Details Date Type Department Care Team (Late st Contact Info) Description 06/04/2023 Ancillary Procedure Radiology Library at [facility] KARIME Kay [address] Earlene Tesfaye [address] [place], [place] [address] Social History Tobacco Use Types Packs/Day Years [...] Lower Extremity (06/04/2023 12:00 AM EST) Narrative [facility] - 06/05/2023 10:51 AM EST This exam is auto-finalizing. It's purpose is for storage only. Earlene Tesfaye IMG FILM LIBRARY OR DERABLES [facility] [place], [place] documented in this encounter Visit Diagnoses Not on filedocumented in this encounter Care Teams Box Builder Relationship Specialty Start Date End Date Earlene Tesfaye [address] [place] [address] PCP - General Family Medicine 08/03/22 documented as of this encounter
--- OUTSIDE RECORDS SUMMARY | 2024-02-06 17:44 | XMS_ITS | Encounter Summary ---
[place] [address] Care Team Providers Care Chief Librarian Work With Blind Name Role Phone Earlene Tesfaye Primary Care Provider +[phone]- [phone] Reason for Referral * Consultation (Routine) - Closed Specialty Diagnoses / Procedures Referred By Dennis powell Referred To Contact Orthopaedics Diagnoses Post-traumatic osteoarthritis of left knee Post-traumatic osteoarthritis of left hip Cornelius Paris MD [address] [place] [address] [facility] [address] [place] [phone] Referral ID Status Reason Start Date Expiration Date V isits Requested Visits Authorized [id number] Closed Consult, Test & Treat PCP Updated and/or Approved 08/03/2022 08/03/2023 6 6 Encounter Details Date Type Department Care Team (Latest Contact Info) Description 08/03/2022 Transcribe Orders eDH Incoming Referrals [phone] Cornelius Paris MD [address] [place], [place] [id number] Osteoarthritis, unspecified osteoarthritis type, unspecified site; Post-traumatic [...] thigh documented in this encounter Care Teams Chief Librarian Work With Blind Relationship Specialty Start Date End Date Earlene Tesfaye [address] [place] [address] PCP - General Family Medicine 08/03/22 documented as of this encounter
--- OUTSIDE RECORDS SUMMARY | 2024-02-06 17:44 | XMS_ITS | Encounter Summary ---
Author Organization [facility] Address [facility] [place] [address] Care Team Providers Care Reservoir Engineering Consultant Name Role Phone Earlene Tesfaye Primary Care Provider Encounter Details Date Type Department Care Team (Late st Contact Info) Description 06/04/2023 12:05 AM EST Ancillary Procedure Radiology Library at [facility] [place] KARIME Kay [address] Earlene Tesfaye [address] [place], [place] [phone] Social History Tobacco Use Types Packs/Day Years [...] DX Knee (06/04/2023 12:05 AM EST) Narrative [facility] - 06/05/2023 10:51 AM EST This exam is auto-finalizing. It's purpose is for storage only. Earlene Tesfaye IMG FILM LIBRARY OR DERABLES [place], [place] documented in this encounter Visit Diagnoses Not on filedocumented in this encounter Care Teams Reservoir Engineering Consultant Relationship Specialty Start Date End Date Earlene Tesfaye [address] [place] [address] PCP - General Family Medicine 08/03/22 documented as of this encounter
--- OUTSIDE RECORDS SUMMARY | 2024-02-06 17:44 | XMS_ITS | Encounter Summary ---
[place] [address] Care Team Providers Care International Logistics Coordinator Name Role Phone Earlene Tesfaye Primary Care Provider Reason for Referral * Consultation (Routine) - Closed Specialty Diagnoses / Procedures Referred By Dennis powell Referred To Contact Orthopaedics Diagnoses Traumatic arthritis of left hip Traumatic arthritis of left knee Cornelius Paris MD [address] [place] [address] [facility] [address] [place] [phone] Referral ID Status Reason Start Date Expiration Date V isits Requested Visits Authorized [id number] Closed Consult, Test & Treat PCP Updated and/or Approved 06/15/2023 06/14/2024 6 6 Encounter Details Date Type Department Care Team (Latest Contact Info) Description 06/15/2023 Transcribe Orders eDH Incoming Referrals [phone] Cornelius Paris MD [address] [place], [place] [phone] Traumatic arthritis of left hip; Traumatic arthritis [...] knee documented in this encounter Care Teams International Logistics Coordinator Relationship Specialty Start Date End Date Earlene Tesfaye [address] [place] [address] PCP - General Family Medicine 08/03/22 documented as of this encounter
--- OUTSIDE RECORDS SUMMARY | 2024-02-06 17:44 | XMS_ITS | Encounter Summary ---
Author Organization [facility] Address [facility] [place] [address] Care Team Providers Care Senior Project Leader/Team Lead Name Role Phone Marty Joseph DO Primary Care Provider +1- [phone] Encounter Details Date Type Department Care Team (Late st Contact Info) Description 07/26/2022 Ancillary Procedure Radiology Library at [facility] KARIME Kay [address] Marty Joseph DO [address] [place] [address] Social History Tobacco Use Types [...] Lower Extremity (07/26/2022 12:00 AM EDT) Narrative [facility] - 08/02/2022 3:56 AM EDT This exam is auto-finalizing. It's purpose is for storage only. Marty Joseph DO IMG FILM LIBRARY ORD ERABLES [facility] [place] documented in this encounter Visit Diagnoses Not on filedocumented in this encounter Care Teams Senior Project Leader/Team Lead Relationship Specialty Start Date End Date Marty Joseph DO [address] [place] [address] PCP - General 03/15/10 08/02/22 documented as of this encounter
--- OUTSIDE RECORDS SUMMARY | 2024-02-06 17:44 | XMS_ITS | Clinical Summary ---
Author Organization [facility] [place] [address] Care Team Providers Care Spinning Mule Operator Name Role Phone BimalAustinEarlene Primary Care Provider [...] Hepatitis C Screening 10/28/1979 Lipid Screening 10/28/1979 Tetanus/Diphtheria/Pertussis Vaccines (1 - Tdap) 10/27 Zoster vaccine (1 of 2) 10/28/2011 Advance Directive 2016 Covid-19 Vaccine (1 - 2022-24 season) 2023 Influenza (Flu) vaccine (1 o f 1 - Influenza standard series) 12/23/2023 Care Teams Spinning Mule Operator Relationship Specialty Start Date End Date Jenny-Austin Earlene [address] [place] [address] PCP - General Family Medicine 08/03/22
--- OUTSIDE RECORDS SUMMARY | 2024-02-06 17:44 | XMS_ITS | Encounter Summary ---
Author Organization [facility] Address [facility] [place] [address] Care Team Providers Care Deli Slicer Name Role Phone Earlene Tesfaye Primary Care Provider Encounter Details Date Type Department Care Team (Late st Contact Info) Description 09/21/2022 Ancillary Procedure Radiology Library at [facility] KARIME Kay [address] Earlene Tesfaye [address] [place], [place] [address] Social History Tobacco Use Types Packs/Day Years [...] DX Hip (09/21/2022 12:00 AM EDT) Narrative [facility] - 06/05/2023 10:55 AM EST This exam is auto-finalizing. It's purpose is for storage only. Earlene eTsfaye IMG FILM LIBRARY OR DERABLES [facility] [place] documented in this encounter Visit Diagnoses Not on filedocumented in this encounter Care Teams Deli Slicer Relationship Specialty Start Date End Date Earlene Tesfaye [address] [place] [address] PCP - General Family Medicine 08/03/22 documented as of this encounter
[2024-02-06 17:59] VITALS: BP 143/68; PULSE 87; RESP 18; TEMP 36.5; O2SAT 97
--- NOTE | 2024-02-06 18:28 | ED.GENADUL_ITS ---
Discharge Plan Disposition Patient Disposition: Home Condition: Stable Discharge Details Clinical Impression: Infection of right hand Primary Care Provider: Earlene Tesfaye ED Provider: Lee Faria Home Meds and New Rx's Prescriptions: New cephalexin 500 mg capsule 500 mg PO BID 7 Days Qty: 14 0RF No Action lisinopril 10 mg tablet 10 mg PO DAILY amlodipine 2.5 mg tablet 2.5 mg PO DAILY Patient Comments: TAKE ONE TABLET BY MOUTH EVERY DAY amoxicillin 500 mg capsule 500 mg PO TID Qty: 20 0RF nicotine [Nicoderm CQ] 21 mg/24 hr patch 24 hour 1 patch transdermal DAILY Qty: 7 0RF nicotine [Nicoderm CQ] 14 mg/24 hr patch 24 hour 1 patch transdermal DAILY Qty: 7 0RF nicotine [Nicoderm CQ] 7 mg/24 hr patch 24 hour 1 patch transdermal Q24H Qty: 7 0RF ibuprofen 400 mg Tablet 400 mg PO Q6H PRN Discharge Instructions Instructions: Wound Infection Additional Instructions: * Apply the provided ointment 3 times daily * Keep your hand clean with soap and water. Do not use alcohol or peroxide * Start the oral antibiotics as prescribed. First dose provided in the emergency department, the remainder the prescription has been sent to your pharmacy. Please pick this up tomorrow. * If symptoms worsen, you develop pain with moving your fingers or any fevers, please return for reevaluation HPI General Date/Time Provider Initiated Documentation: 02/06/24 18:22 . Limitations to Documentation: no limitations . Information obtained by: patient . HPI Narrative: 63-year-old gentleman with past medical history of cellulitis, asplenia, tobacco abuse presents for evaluation of redness to his right hand. He reports that yesterday he had cut it while working and a little bit of the skin had peeled off. He reports that today he noticed that the area was red. He reports that he wanted to get it checked out because last month he was admitted to the hospital with cellulitis of his left arm. He denies any fevers or chills. Redness is localized to the hand. No pain with movement of his fingers or radiation of the pain up his arm. Related Data Home Medications ?Medication ?Instructions ?Recorded ?Confirmed ibuprofen 400 mg tablet 400 mg PO Q6H PRN 05/06/19 01/07/24 lisinopril 10 mg tablet 10 mg PO DAILY 06/07/22 01/07/24 amlodipine 2.5 mg tablet 2.5 mg PO DAILY 01/07/24 01/07/24 amoxicillin 500 mg capsule 500 mg PO TID #20 caps 01/09/24 nicotine 14 mg/24 hr daily 1 patch transdermal DAILY #7 ea 01/09/24 transdermal patch (Nicoderm CQ) nicotine 21 mg/24 hr daily 1 patch transdermal DAILY #7 ea 01/09/24 transdermal patch (Nicoderm CQ) nicotine 7 mg/24 hr daily 1 patch transdermal Q24H #7 ea 01/09/24 transdermal patch (Nicoderm CQ) cephalexin 500 mg capsule 500 mg PO BID 7 days #14 caps 02/06/24 Previous Rx's ?Medication ?Instructions ?Recorded amoxicillin 500 mg capsule 500 mg PO TID #20 caps 01/09/24 nicotine 14 mg/24 hr daily 1 patch transdermal DAILY #7 ea 01/09/24 transdermal patch (Nicoderm CQ) nicotine 21 mg/24 hr daily 1 patch transdermal DAILY #7 ea 01/09/24 transdermal patch (Nicoderm CQ) nicotine 7 mg/24 hr daily 1 patch transdermal Q24H #7 ea 01/09/24 transdermal patch (Nicoderm CQ) cephalexin 500 mg capsule 500 mg PO BID 7 days #14 caps 02/06/24 Allergies Allergy/AdvReac Type Severity Reaction Status Date / Time No Known Allergies Allergy Verified 02/06/24 18:02 General Stated Complaint: Cellulitis PAULA: 3 Exam Narrative Exam Narrative: Review of Systems: All systems reviewed & are unremarkable except as noted in HPI and below Well-developed, no acute distress Afebrile RRR Unlabored respiratory effort Mild erythema surrounding the wound on the dorsum of the right hand. This is at the base of the thumb. There is no induration or fluctuance, no significant warmth, he has full range of motion and sensation in all distributions of the hands, there is no lymphangitic spread Course Vital Signs Vital signs: Vital Signs Temperature 36.5 C 02/06/24 17:59 Pulse 87 02/06/24 17:59 Respiratory Rate 18 02/06/24 17:59 Blood Pressure 143/68 H 02/06/24 17:59 Pulse Oximetry 97 02/06/24 17:59 Temperature 36.5 C 02/06/24 17:59 Pulse 87 10/16/24 17:59 Respiratory Rate 18 02/06/24 17:59 Respiratory Effort Normal 02/06/24 18:02 Blood Pressure 143/68 H 02/06/24 17:59 Pulse Oximetry 97 02/06/24 17:59 Pain Level 5 02/06/24 17:59 Medical Decision Making Emergent evaluation of right hand infection. Patient has localized sign of infection, but no systemic signs. He is afebrile, there is no evidence of lymphangitic spread. He has a fairly small localized area and I do not suspect abscess or deep space infection. There is no sign of tenosynovitis on examination. No indication for imaging. He does not have diabetes. I do not feel that this infection is significant enough at this time to warrant blood work. Will start topical mupirocin and oral antibiotics. I did review his medical record and noted that the infection on his left arm was strep a and treated with a course of amoxicillin. Will start with Keflex. Strict return precautions advised. Discharged in good condition. Quality:SDOH Health Related Social Needs: 2 No Data to Display PFSH All Active Problems Infection of right hand (Acute) Acquired asplenia (Acute) Sepsis in asplenic subject (Acute) Lymphangitis (Acute) Cellulitis (Acute) Sepsis (Acute) Abrasion of left upper extremity (Acute) Cellulitis of left upper extremity (Acute) Right knee pain (Acute) Traumatic arthritis of left hip (Acute) Traumatic arthritis of left knee (Acute) Fracture of distal end of fibula (Acute) Left rotator cuff tear (Acute) Injection: 07/04/18 Medical History Chronic low back pain Anxiety Smoker TBI (traumatic brain injury) Hypertension Surgical History History of splenectomy History of open heart surgery History of knee surgery Colonoscopy - IV Sedation (10/02/16) Appendectomy Social History Smoking/Tobacco Use Status: Current-Occasional Tobacco Type: cigarettes Smoking risk assessment performed?: Yes Alcohol Intake: former Drug use: Occasionally Substance use type: marijuana Housing: house Do you feel safe at home: Yes Do you feel safe in your relationship?: Yes
[2024-02-06] MEDS: Cephalexin 500 MG CAP PO (18:35)
[2024-02-06] MEDS: Mupirocin 2% Oint. 22 GM TUBE TP (18:58)
== END 2024-02-06 18:59 | disposition home or self-care (01) ==
PROVIDERS: Emergency Provider Emergency Medicine; PCP Nurse Practitioner Family
DX: L08.9 Local infection of the skin and subcutaneous tissue, unspecified (principal)
CPT/HCPCS: 99283

== ENCOUNTER 2024-03-09 05:46 | Emergency (ER) | payer MEDICARE, SELFPAY ==
[2024-03-09] VITALS (14 sets, daily range): BP systolic 111–166; BP diastolic 58–91; PULSE 66–88; RESP 13–24; TEMP 36.4; O2SAT 96–99
--- OUTSIDE RECORDS SUMMARY | 2024-03-09 05:52 | XMS_ITS | Encounter Summary ---
Author Organization [facility] Address [facility] [place] [address] Care Team Providers Care Bridge Painter Helper Name Role Phone Earlene Tesfaye Primary Care Provider [phone] Encounter Details Date Type Department Care Team (Late st Contact Info) Description 06/04/2023 12:05 AM EST Ancillary Procedure Radiology Library at [facility] KARIME Kay [address] Earlene Tesfaye [address] [place], [place] [phone] Social History Tobacco Use Types Packs/Day Years [...] Knee (06/04/2023 12:05 AM EST) Narrative [facility] - 06/05/2023 10:51 AM EST This exam is auto-finalizing. It's purpose is for storage only. Earlene Tesfaye IMG FILM LIBRARY OR DERABLES [place], [place] documented in this encounter Visit Diagnoses Not on filedocumented in this encounter Care Teams Bridge Painter Helper Relationship Specialty Start Date End Date Earlene Tesfaye [address] [place] [address] PCP - General Family Medicine 08/03/22 documented as of this encounter
--- OUTSIDE RECORDS SUMMARY | 2024-03-09 05:52 | XMS_ITS | Encounter Summary ---
Author Organization [facility] Address [facility] [place] [address] Care Team Providers Care Business Operations Specialist Name Role Phone Earelne Tesfaye Primary Care Provider Encounter Details Date Type Department Care Team (Late st Contact Info) Description 09/21/2022 Ancillary Procedure Radiology Library at [facility] KARIME Kay [address] Earlene Tesfaye [address] [place], [place] [address] Social History Tobacco Use Types Packs/Day Years [...] DX Hip (09/21/2022 12:00 AM EDT) Narrative [facility] - 06/05/2023 10:55 AM EST This exam is auto-finalizing. It's purpose is for storage only. Earlene Tesfaye IMG FILM LIBRARY OR DERABLES [facility] [place] documented in this encounter Visit Diagnoses Not on filedocumented in this encounter Care Teams Business Operations Specialist Relationship Specialty Start Date End Date Earlene Tesfaye [address] [place] [address] PCP - General Family Medicine 08/03/22 documented as of this encounter
--- OUTSIDE RECORDS SUMMARY | 2024-03-09 05:52 | XMS_ITS | Encounter Summary ---
[place] [address] Care Team Providers Care Collator Operator Name Role Phone Earlene Tesfaye Primary Care Provider Reason for Referral * Consultation (Routine) - Closed Specialty Diagnoses / Procedures Referred By Dennis powell Referred To Contact Orthopaedics Diagnoses Traumatic arthritis of left hip Traumatic arthritis of left knee Cornelius Paris MD [address] [place] [address] [facility] [address] [place] [phone] Referral ID Status Reason Start Date Expiration Date V isits Requested Visits Authorized [id number] Closed Consult, Test & Treat PCP Updated and/or Approved 06/15/2023 06/14/2024 6 6 Encounter Details Date Type Department Care Team (Latest Contact Info) Description 06/15/2023 Transcribe Orders eDH Incoming Referrals [phone] Cornelius Paris MD [address] [place], [place] [phone] Traumatic arthritis of left hip; Traumatic arthritis [...] knee documented in this encounter Care Teams Collator Operator Relationship Specialty Start Date End Date Earlene Tesfaye [address] [place] [address] PCP - General Family Medicine 08/03/22 documented as of this encounter
--- OUTSIDE RECORDS SUMMARY | 2024-03-09 05:52 | XMS_ITS | Encounter Summary ---
Author Organization Count Includes [facility] Address [facility] [place] [address] Care Team Providers Care Clerical Receptionist Name Role Phone Marty Joseph DO Primary Care Provider [phone] Encounter Details Date Type Department Care Team (Late st Contact Info) Description 07/26/2022 Ancillary Procedure Radiology Library at [facility] KARIME Kay [address] Marty Joseph DO [address] [place] [address] Social History Tobacco Use Types [...] Extremity (07/26/2022 12:00 AM EDT) Narrative [facility] - 08/02/2022 3:56 AM EDT This exam is auto-finalizing. It's purpose is for storage only. Marty Joseph DO IMG FILM LIBRARY ORD ERABLES [place], [place] documented in this encounter Visit Diagnoses Not on filedocumented in this encounter Care Teams Clerical Receptionist Relationship Specialty Start Date End Date Marty Joseph DO [address] [place] [address] PCP - General 03/15/10 08/02/22 documented as of this encounter
--- OUTSIDE RECORDS SUMMARY | 2024-03-09 05:52 | XMS_ITS | Encounter Summary ---
Author Organization [facility] Address [facility] [place] [address] Care Team Providers Care Occupational Therapy Supervisor Name Role Phone Earlene Tesfaye Primary Care Provider Encounter Details Date Type Department Care Team (Late st Contact Info) Description 06/04/2023 Ancillary Procedure Radiology Library at [facility] K[place] Kay [address] Earlene Tesfaye [address] [place], [place] [address] Social History Tobacco Use Types Packs/Day Years [...] Lower Extremity (06/04/2023 12:00 AM EST) Narrative [facility] - 06/05/2023 10:51 AM EST This exam is auto-finalizing. It's purpose is for storage only. Earlene Tesfaye IMG FILM LIBRARY OR DERABLES [facility] [place] documented in this encounter Visit Diagnoses Not on filedocumented in this encounter Care Teams Occupational Therapy Supervisor Relationship Specialty Start Date End Date Earlene Tesfaye [address] [place] [address] PCP - General Family Medicine 08/03/22 documented as of this encounter
--- OUTSIDE RECORDS SUMMARY | 2024-03-09 05:52 | XMS_ITS | Clinical Summary ---
Author Organization [facility] [place] [address] Care Team Providers Care Recreational Counselor Name Role Phone BimalAustinEarlene Primary Care Provider [...] 10/28/2011 Advance Directive 2016 Covid-19 Vaccine ( - 2023- season) 2023 Influenza (Flu) vaccine (1 o f 1 - Influenza standard series) 12/23/2023 Care Teams Recreational Counselor Relationship Specialty Start Date End Date Jenny-Austin Earlene [address] [place] [address] PCP - General Family Medicine 08/03/22
--- OUTSIDE RECORDS SUMMARY | 2024-03-09 05:52 | XMS_ITS | Encounter Summary ---
[place] [address] Care Team Providers Care Heel Painter Name Role Phone Earlene Tesfaye Primary Care Provider [phone] Reason for Referral * Consultation (Routine) - Closed Specialty Diagnoses / Procedures Referred By Dennis powell Referred To Contact Orthopaedics Diagnoses Post-traumatic osteoarthritis of left knee Post-traumatic osteoarthritis of left hip Cornelius Paris MD [address] [place] [address] [facility] [address] [place] [phone] Referral ID Status Reason Start Date Expiration Date V isits Requested Visits Authorized [id number] Closed Consult, Test & Treat PCP Updated and/or Approved 08/03/2022 08/03/2023 6 6 Encounter Details Date Type Department Care Team (Latest Contact Info) Description 08/03/2022 Transcribe Orders eDH Incoming Referrals [phone] Cornelius Paris MD [address] [place], [place] [phone] Osteoarthritis, unspecified osteoarthritis type, unspecified site; Post-traumatic [...] thigh documented in this encounter Care Teams Heel Painter Relationship Specialty Start Date End Date Earlene Tesfaye [address] [place] [address] PCP - General Family Medicine 08/03/22 documented as of this encounter
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
[2024-03-09 06:43] LABS: Abs Immature Grans 0.06 10^3/uL (0.0-0.06); Absolute Basophil Count 0.07 10^3/uL (0.0-0.2); Absolute Eosinophil Count 0.28 10^3/uL (0.0-0.7); Basophils % 1.1 %; Eosinophils % 4.6 %; HCT 44.9 % (40.0-50.0); HGB 15.9 g/dL (13.5-17.5); Lymphocytes % 4.9 %; MCH 30.3 pg (27.0-33.0); MCHC 35.4 % (32.0-36.0); MCV 86 fL (80-95); MPV 9.4 fL (8.0-11.0); Monocytes % 3.3 %; Neutrophils % 85.1 %; Platelet Count 218 10^3/uL (130-400); RBC 5.25 10^6/uL (4.36-5.78); RDW 13.6 % (11.8-14.1); RDW-SD 42.8 fL; WBC 6.11 10^3/uL (4.4-10.8)
--- NOTE | 2024-03-09 06:45 | RT.EKG_ITS ---
APPROVED REPORT Exam: Resting ECG Reason for Exam: epigastric pain Patient Location: E HR:79 bpm ECG Measurements Heart Rate 79 AXIS TX 193 P 71 QRSd 90 QRS 80 QT 394 T 54 QTc 451 Conclusion Sinus rhythm...normal P axis, V-rate 60- [address] segment or T wave abnormalities to suggest occlusive KS
[2024-03-09 06:49] LABS: Lactate 0.7 mmol/L (0.6-1.4)
[2024-03-09 06:52] LABS: ALT 61 U/L (16-63); AST 79 U/L (15-37); Albumin 3.1 g/dL (3.4-5.0); Alkaline Phosphatase 161 U/L (46-116); Anion Gap 13.6 mmol/L (3-11); BUN 17 mg/dL (7-18); CO2 20.4 mmol/L (21.0-32.0); Chloride 90 mmol/L (98-107); Glucose 119 mg/dL (74-106); Lipase 33 U/L (16-77); Potassium 4.2 mmol/L (3.5-5.1); Total Protein 7.1 g/dL (6.4-8.2)
[2024-03-09 06:56] LABS: Sodium 124 mmol/L (136-145)
[2024-03-09] MEDS: MORPHine 4 MG/ML SYR IVP (06:58)
[2024-03-09] MEDS: Sucralfate 1 GM TAB PO (06:59)
[2024-03-09] MEDS: Acetaminophen 500 MG TAB 1000 MG PO (06:59)
[2024-03-09] MEDS: Ondansetron 4 MG/2 ML VIAL IVP (06:59)
[2024-03-09] MEDS: Omnipaque 350 MG/ML 100 ML BTL IJ (07:02)
[2024-03-09 07:03] LABS: Calcium 8.6 mg/dL (8.5-10.1)
[2024-03-09] MEDS: Normal Saline - Diluent 50 ML VIAL IJ (07:03)
[2024-03-09 07:09] LABS: Troponin I 5 ng/L (<or=76)
--- NOTE | 2024-03-09 07:40 | DI.CT_ITS ---
Exam(s) CT THORAX ABD/PEL CTA EXAM: CT THORAX ABD/PEL CTA CLINICAL HISTORY: severe epigastric glenn, hx trauamtic aortic injury. TECHNIQUE: Imaging Protocol: Axial CT angiography was performed with multi-slice acquisition and m ulti-planar and/or 3D reconstructions. CONTRAST MATERIAL: Intravenous: Omnipaque 350 Contrast volume:structured data in ml Oral: no COMPARISON: CT RENAL COLIC WO CONTRAST from 12/27/[address] CHEST PE CTA from 11/27/2019 CR XR CHEST 2V PA LATERAL from 01/07/2024 FINDINGS: CHEST: Pulmonary Arteries: No evidence of filling defect to suggest pulmonary emboli. Tracheobronchial tree: Patent where visualized. Mediastinum and Lelo: No dominant adenopathy or fluid collection. Pulmonary parenchyma: No consolidation or dominant measurable mass. No architectural distortion. Pleura: No effusion or pneumothorax. Heart: The heart is not dilated. Coronary artery calcifications are seen. Aorta: Ascending aorta measures 3.6 cm. Mild atherosclerotic changes. No evidence of dissection. S table slight contour deformity at the isthmus. Bones: Degenerative changes in the lower thoracic spine. Tubes, Catheters, and Lines: ABDOMEN AND PELVIS: Abdomen: Celiac axis/mesenteric arteries: No evidence of occlusion or significant stenosis. Renal Arteries: No evidence of occlusion or significant stenosis. There is a single renal artery per fusing each kidney. Aorta: No evidence of occlusion or significant stenosis. No aneurysm or dissection. Mild atheros clerotic changes. Pelvis: Iliac Arteries: No evidence of occlusion or significant stenosis. Common Femoral Arteries: No evidence of occlusion or significant stenosis. ABDOMEN: Liver: Normal density. No measurable mass. Portal, Superior Mesenteric, and Splenic Veins: Unremarkable. Gallbladder and Biliary Tract: No radiodense calculus or dilation. Pancreas: Normal density, no abnormal calcifications or inflammatory process. Spleen: A normal spleen is not seen. There are nodular opacities in the left upper quadrant consiste nt with regenerative splenic tissue. Adrenals: No masses seen. Kidneys: Normal size, contour and axis. No radiodense stones or obstructive uropathy. No masses seen. Duplex left collecting system. Bowel: Some fluid noted in the stomach and proximal small bowel. The proximal small bowel is mildly dilated and fluid filled. Fluid also noted in the colon. Findings could indicate enteritis and diar rheal illness. No obstruction. Appendix is unremarkable. Sigmoid diverticulosis. No evidence of d iverticulitis. Peritoneal Cavity: No ascites, collection or mesenteric inflammatory response. Lymph Nodes: Within normal limits. Bones: Degenerative changes also present in the lumbar spine. Soft Tissues: Unremarkable. PELVIS: Bladder: Symmetric distention, no gross wall thickening. Reproductive Organs: Prostate partially obscured by artifact from orthopedic hardware. Lymph Nodes: Within normal limits. Bones: Hardware again noted in left ischium. Severe degenerative changes of the left hip. Mild dege nerative changes of the right hip. Prominent spurring at the pubic symphysis. IMPRESSION: No evidence of aortic dissection. Mild atherosclerotic changes. No evidence of pulmonary emboli. No acute abnormality in the chest. Stomach, proximal small bowel and colon are somewhat fluid distended which could reflect enteritis an d diarrheal illness. No evidence of bowel obstruction. Mild atherosclerotic changes. No acute vascular abnormality. RADIATION DOSE DELIVERED: Total DLP DATA REPOSITORY: All CT scans at this facility are submitted to the National Radiology Data Registry (NRDR) Dose Index Registry (DIR) with the [employer] (ACR). RADIATION OPTIMIZATION: All CT scans at this facility use at least one of these dose optimization te chniques: automated exposure control; mA and/or kV adjustment per patient size (includes targeted exa ms where dose is matched to clinical indication); or iterative reconstruction.
[2024-03-09] MEDS: PANTOPRAZOLE 80 MG in Normal Saline 100 ML 10 MG IV (07:46)
[2024-03-09 09:05] LABS: Troponin I 7 ng/L (<or=76)
--- NOTE | 2024-03-09 09:10 | DI.VRAD_ITS ---
PROCEDURE INFORMATION: Exam: CTA Chest With Contrast CTA Abdomen and Pelvis With Contrast Exam date and time: 03/09/2024 7:33 AM Age: 63 years old Clinical indication: Severe epigastric pain, HX traumatic aortic injury TECHNIQUE: Imaging protocol: Computed tomographic angiography of the chest with contrast. Exam focused on the arteries. Computed tomographic angiography of the abdomen and pelvis with contrast. Exam focused on the arteries. 3D rendering (Not supervised by radiologist): MIP and/or 3D reconstructed images were created by the technologist. Contrast material: OMNIPAQUE 350; Contrast volume: 100 ml; Contrast route: INTRAVENOUS (IV); COMPARISON: CT CHEST PE CTA 11/27/2019 11:18 AM FINDINGS: Limitations: Streak and beam hardening artifact from metal orthopedic hardware. VASCULATURE: Pulmonary arteries: No sign of acute pulmonary embolism. Aorta: No thoracic or abdominal aortic aneurysm or dissection. Slightly irregular contour at the isthmus of the thoracic aorta possibly related to history of prior injury. This has a similar appearance to the prior comparison exam. Celiac trunk and mesenteric arteries: No occlusion or stenosis. Renal arteries: No occlusion or stenosis. Right iliac arteries: No occlusion or stenosis. Left iliac arteries: No occlusion or stenosis. CHEST: Lungs: No sign of pneumonia. Pleural spaces: No pleural effusion or pneumothorax. Heart: The heart is not enlarged. No pericardial effusion or hemopericardium. Coronary arteries: Calcified coronary artery atherosclerotic plaque visualized. ABDOMEN AND PELVIS: Liver: Heterogeneous liver parenchymal enhancement, possibly related to the phase of imaging. Gallbladder and biliary ducts: The gallbladder is contracted. No calcified gallstones. No biliary ductal dilatation. Pancreas: No pancreatic mass. No peripancreatic inflammation. No pancreatic ductal dilation. Spleen: The spleen appears absent. Residual or regenerative splenic tissue left upper quadrant? Adrenal glands: No adrenal mass. Kidneys and ureters: No hydronephrosis, nephrolithiasis, or renal mass. Stomach and bowel: No sign of bowel obstruction. There are multiple loops of somewhat distended fluid-filled small bowel with short air-fluid levels, with the distension being more prominent proximally as opposed distally. No focal transition zone. There is also fluid in the colon and rectum. Findings could be due to an enteritis. There is diverticulosis, primarily in the sigmoid colon, without evidence of diverticulitis. Appendix: No evidence of appendicitis. Intraperitoneal space: No ascites or pneumoperitoneum. Urinary bladder: No urinary bladder calculus or wall thickening. Reproductive: Prominent prostate. Lymph nodes: No pathologically enlarged lymph nodes. Bones/joints: Prior left acetabular ORIF. Multilevel disc degeneration in the thoracic spine. Soft tissues: Unremarkable. IMPRESSION: 1. Coronary artery disease. 2. No thoracic or abdominal aortic dissection. 3. Possible enteritis? Dictated and Authenticated by: Geovanni Almodovar MD. Ordering:OMID Wilson MD
--- NOTE | 2024-03-09 09:46 | W.EDPROG ---
Date of service: 03/09/24 Time of Service: 09:48 Medical Decision Making Patient signed out to me pending delta tropes which are negative and CT that shows no emergent findings, has evidence of possible enteritis. Patient is sleeping on reassessment and easily awakens to voice. He says his pain is resolved, he has no abdominal tenderness or chest pain. I did note that he has a sodium of 124. He says that he usually does drink alcohol daily, but has not for the last 4 days. Discussed observation admission versus discharge and follow-up this week for repeat BMP and he prefers outpatient management which I feel is reasonable. Return precautions given Quality:[facility] Health Related Social Needs: No Data to Display Sign Out Sign Out Data: Sign Out Comment: 63yo M with severe epigastric pain and loose/dark stool this morning. Most concerned for GI bleed. Hx traumatic aortic injury so getting CT for dissection. New hyponatremia at ~126, no severe symptoms (general malaise and nausea), not correcting emergently. Pending UA, trop, CTA/CT abd-pelvis. Last updated by Katie Benson MD at 03/09/24 07:28 Discharge Plan Disposition Patient Disposition: Home Condition: Stable Discharge Details Clinical Impression: Epigastric pain, Acute hyponatremia Primary Care Provider: Earlene Tesfaye ED Provider: Jeffrey Ramirez Home Meds and New Rx's Prescriptions: New omeprazole 20 mg capsule,delayed release(DR/EC) 20 mg PO DAILY Qty: 30 0RF Continued lisinopril 10 mg tablet 10 mg PO DAILY amlodipine 2.5 mg tablet 2.5 mg PO DAILY Patient Comments: TAKE ONE TABLET BY MOUTH EVERY DAY nicotine [Nicoderm CQ] 21 mg/24 hr patch 24 hour 1 patch transdermal DAILY Qty: 7 0RF nicotine [Nicoderm CQ] 14 mg/24 hr patch 24 hour 1 patch transdermal DAILY Qty: 7 0RF nicotine [Nicoderm CQ] 7 mg/24 hr patch 24 hour 1 patch transdermal Q24H Qty: 7 0RF ibuprofen 400 mg Tablet 400 mg PO Q6H PRN Discharge Instructions Additional Instructions: Your CAT scan showed some inflammation of the stomach which is likely the cause of your pain. Take the omeprazole as prescribed. This is also available [id number] if you prefer to have it that way. Your sodium level was low, I recommend increasing your dietary intake of salt and having this rechecked with your primary care provider in 1 to 2 weeks If you feel more ill or have new symptoms such as high fevers, difficulty breathing or weakness return to the emergency department for reevaluation
== END 2024-03-09 10:14 | disposition home or self-care (01) ==
PROVIDERS: Student in an Organized Health Care Education/Training Program; Emergency Provider Emergency Medicine; PCP Nurse Practitioner Family
DX: R10.13 Epigastric pain (principal); R53.1 Weakness; E87.1 Hypo-osmolality and hyponatremia; I10 Essential (primary) hypertension; F17.210 Nicotine dependence, cigarettes, uncomplicated
CPT/HCPCS: 00123; 36415; 71275; 80053; 83690; 93005; 96374; 96375; 99285; 74174; 83605; 84484; 85025; 93010; J2270; J2405; J2470; J3490

== ENCOUNTER 2024-04-04 10:02 | Outpatient (REF) | payer MEDICARE, MEDICAID, SELFPAY ==
--- OUTSIDE RECORDS SUMMARY | 2024-04-04 10:16 | XMS_ITS | Encounter Summary ---
Author Organization [facility] Address [facility] [place] [address] Care Team Providers Care Optical Design Engineer Name Role Phone Earlene Tesfaye Primary Care Provider Encounter Details Date Type Department Care Team (Late st Contact Info) Description 09/21/2022 Ancillary Procedure Radiology Library at [facility] [place] [place] [phone] Earlene Tesfaye [address] [place], [place] [id number] Social History Tobacco Use Types Packs/Day Years [...] DX Hip (09/21/2022 12:00 AM EDT) Narrative [facility] - 06/05/2023 10:55 AM EST This exam is auto-finalizing. It's purpose is for storage only. Earlene Tesfaye IMG FILM LIBRARY OR DERABLES [facility] [place] documented in this encounter Visit Diagnoses Not on filedocumented in this encounter Care Teams Optical Design Engineer Relationship Specialty Start Date End Date Earlene Tesfaye [address] [place] [address] PCP - General Family Medicine 08/03/22 documented as of this encounter
--- OUTSIDE RECORDS SUMMARY | 2024-04-04 10:16 | XMS_ITS | Encounter Summary ---
Author Organization [facility] Address [facility] [place] [address] Care Team Providers Care Printing Screen Assembler Name Role Phone Earlene Tesfaye Primary Care Provider Encounter Details Date Type Department Care Team (Late st Contact Info) Description 06/04/2023 Ancillary Procedure Radiology Library at [facility] [place] [phone] Earlene Tesfaye [address] [place], [place] [address] Social History Tobacco Use Types Packs/Day Years [...] Lower Extremity (06/04/2023 12:00 AM EST) Narrative [facility] - 06/05/2023 10:51 AM EST This exam is auto-finalizing. It's purpose is for storage only. Earlene Tesfaye IMG FILM LIBRARY OR DERABLES [facility] [place] documented in this encounter Visit Diagnoses Not on filedocumented in this encounter Care Teams Printing Screen Assembler Relationship Specialty Start Date End Date Earlene Tesfaye [address] [place] [address] PCP - General Family Medicine 08/03/22 documented as of this encounter
--- OUTSIDE RECORDS SUMMARY | 2024-04-04 10:16 | XMS_ITS | Encounter Summary ---
[place] [address] Care Team Providers Care Locker Room Supervisor Name Role Phone Earlene Tesfaye Primary Care Provider [phone] Reason for Referral * Consultation (Routine) - Closed Specialty Diagnoses / Procedures Referred By Dennis powell Referred To Contact Orthopaedics Diagnoses Post-traumatic osteoarthritis of left knee Post-traumatic osteoarthritis of left hip Cornelius Paris MD [address] [place] [address] [facility] [address] [place] [phone] Referral ID Status Reason Start Date Expiration Date V isits Requested Visits Authorized [id number] Closed Consult, Test & Treat PCP Updated and/or Approved 08/03/2022 08/03/2023 6 6 Encounter Details Date Type Department Care Team (Latest Contact Info) Description 08/03/2022 Transcribe Orders eDH Incoming Referrals [phone] Cornelius aPris MD [address] [place], [place] [id number] Osteoarthritis, unspecified osteoarthritis type, unspecified site; Post-traumatic [...] thigh documented in this encounter Care Teams Locker Room Supervisor Relationship Specialty Start Date End Date Earlene Tesfaye [address] [place] [address] PCP - General Family Medicine 08/03/22 documented as of this encounter
--- OUTSIDE RECORDS SUMMARY | 2024-04-04 10:16 | XMS_ITS | Clinical Summary ---
Author Organization [facility] [place] [address] Care Team Providers Care Metal Drilling Machine Operator Name Role Phone BimalAustinEarlene Primary Care [...] - Influenza standard series) 12/23/2023 Care Teams Metal Drilling Machine Operator Relationship Specialty Start Date End Date Jenny-Austin Earlene [address] [place] [address] PCP - General Family Medicine 08/03/22
--- OUTSIDE RECORDS SUMMARY | 2024-04-04 10:16 | XMS_ITS | Encounter Summary ---
Author Organization [facility] Address [facility] [place] [address] Care Team Providers Care Direct Sales Consultant Name Role Phone Marty Joseph DO Primary Care Provider [phone]- [phone] Encounter Details Date Type Department Care Team (Late st Contact Info) Description 07/26/2022 Ancillary Procedure Radiology Library at [facility] [place] [phone] Marty Joseph DO [address] [place] [address] Social History Tobacco Use Types [...] Lower Extremity (07/26/2022 12:00 AM EDT) Narrative [facility] - 08/02/2022 3:56 AM EDT This exam is auto-finalizing. It's purpose is for storage only. Marty Joseph DO IMG FILM LIBRARY ORD ERABLES [place], [place] documented in this encounter Visit Diagnoses Not on filedocumented in this encounter Care Teams Direct Sales Consultant Relationship Specialty Start Date End Date Marty Joseph DO [address] [place] [address] PCP - General 03/15/10 08/02/22 documented as of this encounter
--- OUTSIDE RECORDS SUMMARY | 2024-04-04 10:16 | XMS_ITS | Encounter Summary ---
[place] [address] Care Team Providers Care Engineering Mathematician Name Role Phone Earlene Tesfaye Primary Care Provider Reason for Referral * Consultation (Routine) - Closed Specialty Diagnoses / Procedures Referred By Dennis powell Referred To Contact Orthopaedics Diagnoses Traumatic arthritis of left hip Traumatic arthritis of left knee Cornelius Paris MD [address] [place] [address] [facility] [address] [place] [id number] Referral ID Status Reason Start Date Expiration Date V isits Requested Visits Authorized [id number] Closed Consult, Test & Treat PCP Updated and/or Approved 06/15/2023 06/14/2024 6 6 Encounter Details Date Type Department Care Team (Latest Contact Info) Description 06/15/2023 Transcribe Orders eDH Incoming Referrals [phone] Cornelius Paris MD [address] [place], [place] [id number] Traumatic arthritis of left hip; Traumatic arthritis [...] knee documented in this encounter Care Teams Engineering Mathematician Relationship Specialty Start Date End Date Earlene Tesfaye [address] [place] [address] PCP - General Family Medicine 08/03/22 documented as of this encounter
--- OUTSIDE RECORDS SUMMARY | 2024-04-04 10:16 | XMS_ITS | Encounter Summary ---
Author Organization [facility] Address [facility] [place] [address] Care Team Providers Care Excellence Coach Name Role Phone Earlene Tesfaye Primary Care Provider Encounter Details Date Type Department Care Team (Late st Contact Info) Description 06/04/2023 12:05 AM EST Ancillary Procedure Radiology Library at [facility] [place] [phone] Earlene Tesfaye [address] [place], [place] [id number] Social History Tobacco Use Types Packs/Day Years [...] DX Knee (06/04/2023 12:05 AM EST) Narrative [facility] - 06/05/2023 10:51 AM EST This exam is auto-finalizing. It's purpose is for storage only. Earlene Tesfaye IMG FILM LIBRARY OR DERABLES [place], [place] documented in this encounter Visit Diagnoses Not on filedocumented in this encounter Care Teams Excellence Coach Relationship Specialty Start Date End Date Earlene Tesfaye [address] [place] [address] PCP - General Family Medicine 08/03/22 documented as of this encounter
[2024-04-04 15:09] LABS: Anion Gap 4.2 mmol/L (3-11); BUN 19 mg/dL (7-18); CO2 29.8 mmol/L (21.0-32.0); CREATININE 0.9 mg/dL (0.70-1.30); Calcium 9.2 mg/dL (8.5-10.1); Chloride 104 mmol/L (98-107); Estimated GFR 96.57 (mL/min/1.73m2); Glucose 124 mg/dL (74-106); Potassium 5.3 mmol/L (3.5-5.1); Sodium 138 mmol/L (136-145)
== END 2024-04-04 10:03 | disposition home or self-care (01) ==
LOC: NCHCN 10:02
PROVIDERS: PCP Nurse Practitioner Family; Visit Provider Nurse Practitioner Family
DX: E87.1 Hypo-osmolality and hyponatremia (principal)
CPT/HCPCS: 80048

== ENCOUNTER 2024-08-03 13:49 | Emergency (ER) | payer MEDICARE, MEDICAID, SELFPAY ==
[2024-08-03] VITALS (9 sets, daily range): BP systolic 180–208; BP diastolic 79–104; PULSE 77–83; RESP 14–20; TEMP 37.2–37.3; O2SAT 94–97
--- NOTE | 2024-08-03 14:30 | DI.RAD_ITS ---
Exam(s) XR CHEST 2V PA LATERAL EXAM: XR CHEST 2V PA LATERAL CLINICAL HISTORY: Fever, cough. TECHNIQUE: 2D digital imaging was performed. COMPARISON: CR XR CHEST 2V PA LATERAL from 01/07/2024 FINDINGS: 2 views: Heart size is normal. The mediastinum is not widened. Lungs are clear. No infiltrates nor pleural effusions. IMPRESSION: No acute pulmonary findings. DATA REPOSITORY: RADIATION DOSE DELIVERED:
[2024-08-03 14:39] LABS: Abs Immature Grans 0.05 10^3/uL (0.0-0.06); Absolute Basophil Count 0.06 10^3/uL (0.0-0.2); Absolute Eosinophil Count 0.01 10^3/uL (0.0-0.7); Absolute Lymphocyte Count 2.17 10^3/uL (1.2-3.4); Basophils % 0.4 %; Eosinophils % 0.1 %; HCT 46.2 % (40.0-50.0); HGB 15.7 g/dL (13.5-17.5); Immature Grans % 0.3 %; Lymphocytes % 14.9 %; MCH 29.6 pg (27.0-33.0); MCV 87 fL (80-95); MPV 8.9 fL (8.0-11.0); Monocytes % 6.7 %; Neutrophils % 77.6 %; Platelet Count 274 10^3/uL (130-400); RDW 14.6 % (11.8-14.1); RDW-SD 46.7 fL; WBC 14.55 10^3/uL (4.4-10.8)
[2024-08-03 14:40] LABS: Absolute Monocyte Count 0.97 10^3/uL (0.1-0.8); Absolute Neutrophil Count 11.29 10^3/uL (1.2-6.7)
--- NOTE | 2024-08-03 14:40 | ED.GENADUL_ITS ---
Discharge Plan Discharge Details Chief Complaint: Nk/Back Pain Clinical Impression: Influenza A, Left sided sciatica Primary Care Provider: Earlene Tesfaye ED Provider: Nayla Burch Home Meds and New Rx's Prescriptions: No Action lisinopril 10 mg tablet 10 mg PO DAILY amlodipine 2.5 mg tablet 2.5 mg PO DAILY Patient Comments: TAKE ONE TABLET BY MOUTH EVERY DAY omeprazole 20 mg capsule,delayed release(DR/EC) 20 mg PO DAILY Qty: 30 0RF ibuprofen 400 mg Tablet 400 mg PO Q6H PRN HPI General Mode of arrival: ambulatory . Date/Time Provider Initiated Documentation: 08/03/24 13:51 . Limitations to Documentation: no limitations . Information obtained by: patient and old records reviewed . HPI Narrative: HPI: This is a 63-year-old male patient with a past medical history significant for asplenia, arthritis of the left hip and knee and a history of sciatica on that side, presenting for evaluation of 2 to 3 days of fever and chills, worsening left hip pain/sciatic pain, and stuffy nose/cough. The patient reports that his is also sick at home with similar symptoms. He states that he has had to sleep but it would still for the last 2 nights, because he has had chills and rigors. States that he worries that he has the flu or something similar. States that he has also over the last 2 to 3 days noted a worsening of his left hip pain, located in his buttock and radiating downward. He states that he does not have numbness or tingling but the sensation in his left foot seems slightly different than his right. Denies saddle anesthesia, weakness or difficulty ambulating. Denies back pain, has not tried any medications. Exam: Gen: Awake and alert, appears uncomfortable HEENT: Non-icteric sclera Neck: Supple Lungs: No apparent respiratory distress, normal respiratory effort. CV: Appears well perfused, strong distal pulses without tachycardia Abdomen: Non-distended, soft, nontender MSK: Moves 4 extremities without apparent limitation in ROM. No tenderness to palpation of the midline C/T/L-spine, no tenderness over the SI joints. Patient does have some tenderness over the left buttock, straight leg raise on the affected left side reproduces pain, though it does not radiate below the level of the buttock. Contralateral straight leg raise negative. Skin: Visualized skin without rashes, cyanosis. Neuro: Normal Gait, no obvious focal deficits or facial asymmetry. 5 out of 5 strength bilateral lower extremities, no sensory deficits appreciated. Speaks in full, clear sentences. Psych: Appropriate for situation. MDM: This is a 63-year-old male patient with a past medical history [place] for asplenia and left-sided hip arthritis who is presenting for evaluation of left buttock pain and fever/chills and cough. My differential includes but is not limited to viral respiratory infection, pneumonia, bronchitis, I considered bacteremia and sepsis given this patient's history of asplenia. Regarding his left buttock pain sciatica is the most likely etiology, he has no trauma or midline pain to suggest fracture or dislocation, and has no evidence of numbness, weakness, or red flag symptoms for spinal cord compression such as cauda equina, spinal epidural abscess, or hematoma. We will obtain Fluvid, blood cultures, and laboratory studies to include CBC, CMP, magnesium, lactate, and will provide the patient with Tylenol and Toradol for symptomatic management. At this time the patient's vital signs are reassuring without tachycardia or fever, and he does not meet criteria for initiation of a sepsis alert. ED Course: I reviewed the patient's laboratory studies, which show a leukocytosis to 14 but no anemia or thrombocytopenia. Chemistry panel reveals no electrolyte derangements, evidence of kidney dysfunction or liver disease. Procalcitonin and lactate are both very low. Flu positive, x-ray without evide nce of pneumonia. Signed out to the oncoming provider prior to completion of his urinalysis and reassessment of his pain, patient did require morphine for ongoing pain management after no improvement was noted with Tylenol and ibuprofen. Anticipate given his lack of fever and tachycardia that he would be appropriate to consider for discharge, though certainly he would need to have the ability to return to care if his blood cultures were positive, and follow-up with outpatient providers for reassessment. Remained hemodynamically appropriate while under my care. Nayla Burch MD Related Data Home Medications ?Medication ?Instructions ?Recorded ?Confirmed ibuprofen 400 mg tablet 400 mg PO Q6H PRN 05/06/19 08/03/24 lisinopril 10 mg tablet 10 mg PO DAILY 06/07/22 08/03/24 amlodipine 2.5 mg tablet 2.5 mg PO DAILY 01/07/24 08/03/24 omeprazole 20 mg capsule,delayed 20 mg PO DAILY #30 caps 03/09/24 08/03/24 release Previous Rx's ?Medication ?Instructions ?Recorded omeprazole 20 mg capsule,delayed 20 mg PO DAILY #30 caps 03/09/24 release Allergies Allergy/AdvReac Type Severity Reaction Status Date / Time No Known Allergies Allergy Verified 08/03/24 14:09 General Stated Complaint: Nk/Back Pain PAULA: 4 Course Vital Signs Vital signs: Vital Signs Temperature 37.2 C 08/03/24 14:05 Pulse 78 08/03/24 14:05 Respiratory Rate 20 08/03/24 14:05 Blood Pressure 208/100 H 08/03/24 14:05 Pulse Oximetry 97 08/03/24 14:05 Temperature 37.2 C 08/03/24 14:05 Pulse 78 08/03/24 14:05 Respiratory Rate 20 08/03/24 14:05 Blood Pressure 197/79 H 08/03/24 14:20 Blood Pressure Position Sitting 08/03/24 14:05 Pulse Oximetry 97 08/03/24 14:05 Oxygen Delivery Method Room Air 08/03/24 14:05 Oxygen Flow Rate 0 08/03/24 14:05 Lab/Test Results Lab/Test Results: 08/03/24 14:38 Blood Blood Culture - Pending 08/03/24 14:29 Blood Blood Culture - Pending Laboratory Tests Range/Units 08/03/24 14:29 VBG Lactate (<or=2.0) mmol/L 1.0 Medical Decision Making Quality:SDOH Health Related Social Needs: No Data to Display PFSH All Active Problems (Updated 08/03/24 @ 15:48 by Nayla Burch MD) Left sided sciatica (Acute) Influenza A (Acute) Acquired asplenia (Acute) Sepsis in asplenic subject (Acute) Lymphangitis (Acute) Cellulitis (Acute) Sepsis (Acute) Abrasion of left upper extremity (Acute) Cellulitis of left upper extremity (Acute) Right knee pain (Acute) Traumatic arthritis of left hip (Acute) Traumatic arthritis of left knee (Acute) Fracture of distal end of fibula (Acute) Left rotator cuff tear (Acute) Injection: 07/04/18 Medical History Chronic low back pain Anxiety Smoker TBI (traumatic brain injury) Hypertension Surgical History History of splenectomy History of open heart surgery History of knee surgery Colonoscopy - IV Sedation (10/02/16) Appendectomy Social History Smoking/Tobacco Use Status: Current-Occasional Tobacco Type: cigarettes Smoking risk assessment performed?: Yes Alcohol Intake: former Drug use: Occasionally Substance use type: marijuana Housing: house Do you feel safe at home: Yes Do you feel safe in your relationship?: Yes
[2024-08-03] MEDS: ACETAMINOPHEN 1,000 MG/100 ML BAG 400 MG IVPB (14:46)
[2024-08-03] MEDS: Ketorolac 15 MG/ML VIAL IVP (14:47)
[2024-08-03 14:57] LABS: ALT 24 U/L (16-63); AST 24 U/L (15-37); Albumin 3.5 g/dL (3.4-5.0); Alkaline Phosphatase 94 U/L (46-116); Anion Gap 9.5 mmol/L (3-11); BUN 11 mg/dL (7-18); Bilirubin, Total 0.2 mg/dL (0.2-1.0); CO2 26.5 mmol/L (21.0-32.0); Calcium 8.6 mg/dL (8.5-10.1); Chloride 98 mmol/L (98-107); Glucose 96 mg/dL (74-106); Potassium 3.8 mmol/L (3.5-5.1); Sodium 134 mmol/L (136-145); Total Protein 7.7 g/dL (6.4-8.2)
[2024-08-03 15:03] LABS: Prothrombin Time 9.9 sec (9.1-11.1)
[2024-08-03 15:12] LABS: Procalcitonin < 0.10 ng/mL
[2024-08-03 15:36] LABS: COVID-19 PCR Negative (Negative); Influenza A PCR Positive (Negative); Influenza B PCR Negative (Negative); RSV PCR Negative (Negative)
[2024-08-03 15:43] LABS: Source Nasopharynx
--- NOTE | 2024-08-03 15:43 | DI.VRAD_ITS ---
PROCEDURE INFORMATION: Exam: XR Chest Exam date and time: 08/03/2024 3:10 PM Age: 63 years old Clinical indication: Cough and fever TECHNIQUE: Imaging protocol: Radiologic exam of the chest. Views: 2 views. COMPARISON: CT THORAX ABD/PEL CTA 03/09/2024 7:33 AM FINDINGS: Lungs: Lungs are clear with no infiltrate or nodule. Pleural spaces: Unremarkable. No pleural effusion. No pneumothorax. Heart/Mediastinum: Cardiomediastinal silhouette is normal. Bones/joints: Unremarkable. IMPRESSION: No active cardiopulmonary disease. Dictated and Authenticated by: Demetrius Pérez MD. Orderin [facility] Talon Winslow MD
--- NOTE | 2024-08-03 15:59 | W.EDPROG ---
Date of service: 08/03/24 Time of Service: 15:59 Medical Decision Making This dictation utilizes [id number] dictation software and may contain unedited grammatical errors. Patient seen in signout from Dr. Nayla Burch. Please see her complete note. Essentially, this 63-year-old male reports acute on chronic left sciatica pain without evidence of any cauda equina per her prior exam and he has been given analgesics, he also endorses a respiratory infection and questions of yes the flu, he has a history of asplenia, his PCR swab was positive for influenza A, chest x-ray has no pneumonia, he has a leukocytosis but does not meet sepsis criteria, he is awaiting results of urinalysis. Patients' medical history: Asplenia, sciatica, smoker, TBI, hypertension. Family and social history: Lives independently. Differential / pathologies of concern include influenza A sciatica. Diagnostic studies of: - Reviewed prior exams, urinalysis pending. - UA shows no signs of UTI Interventions of: - Reassessed his pain level is under control for his baseline chronic sciatica, starting on Tamiflu Rx. -Cancelled his IV morphine, as he drove here, and would prefer a pill to take when he gets home, provided 5mg oxycodone to go, 1 dose cyclobenzaprine for tonight to-go, and a 3-tab pack to-go for PRN use ED Course/Assessment/Plan: 63-year-old male with asplenia presents with respiratory illness questions if he has the flu, his is sick at home with the flu, PCR swab positive prior to signout, chest x-ray resulted prior to signout shows no focal pneumonia, he is awaiting UA which showed no signs of UTI, he has acute on chronic left-sided exacerbation of sciatica, he was given Tylenol and Toradol, he was planned to have morphine but I did cancel this at patient request as he would like to drive home and attempt p.o oxycodone for acute pain relief, provided 1 dose to go cyclobenzaprine and 3 tabs to use as needed in the short-term, recommend he follow-up with physical therapy and referral was provided. Stressed strict return criteria for any worsening respiratory status, fevers not responding to Tylenol and ibuprofen or any other emergent concerns due to his asplenia. Findings not consistent with hypoxic respiratory failure, sepsis, respiratory distress, cauda equina. Disposition of influenza A, Left sided Sciatica. Patient verbalized understanding of the plan and return to ED criteria and engaged in shared decision making. Medical Records Medical records reviewed: Yes I reviewed the patient's medical records. Imaging Data Radiologic Study: Attestation: I personally reviewed and interpreted this imaging study as follows: Imaging: X-Ray Radiologist's impression: Exam: XR Chest Exam date and time: 08/03/2024 3:10 PM Age: 63 years old Clinical indication: Cough and fever TECHNIQUE: Imaging protocol: Radiologic exam of the chest. Views: 2 views. COMPARISON: CT THORAX ABD/PEL CTA 03/09/2024 7:33 AM FINDINGS: Lungs: Lungs are clear with no infiltrate or nodule. Pleural spaces: Unremarkable. No pleural effusion. No pneumothorax. Heart/Mediastinum: Cardiomediastinal silhouette is normal. Bones/joints: Unremarkable. IMPRESSION: No active cardiopulmonary disease. Dictated and Authenticated by: Demetrius Pérez MD. Lab Data Lab results reviewed: Yes I reviewed the patient's lab results. Labs: 08/03/24 14:38 Blood Blood Culture - Pending 08/03/24 14:29 Blood Blood Culture - Pending Laboratory Tests Range/Units 08/03/24 08/03/24 08/03/24 14:29 14:56 15:38 WBC (4.4-10.8) 10^3/uL 14.55 H RBC (4.36-5.78) 10^6/uL 5.30 Hgb (13.5-17.5) g/dL 15.7 Hct (40.0-50.0) % 46.2 MCV (80-95) fL 87 MCH (27.0-33.0) pg 29.6 MCHC (32.0-36.0) % 34.0 RDW (11.8-14.1) % 14.6 H Plt Count (130-400) 10^3/uL 274 MPV (8.0-11.0) fL 8.9 Immature Gran % % 0.3 Neutrophils % % 77.6 Lymphocytes % % 14.9 Monocytes % % 6.7 Eosinophils % % 0.1 Basophils % % 0.4 Nucleated RBC % (0.0-0.3) % 0.0 Absolute Neutrophils (1.2-6.7) 10^3/uL 11.29 H Absolute Lymphocytes (1.2-3.4) 10^3/uL 2.17 Absolute Monocytes (0.1-0.8) 10^3/uL 0.97 H Absolute Eosinophils (0.0-0.7) 10^3/uL 0.01 Absolute Basophils (0.0-0.2) 10^3/uL 0.06 PT (9.1-11.1) sec 9.9 INR (0.9-1.1) 1.0 VBG Lactate (<or=2.0) mmol/L 1.0 Sodium (136-145) mmol/L 134 L Potassium (3.5-5.1) mmol/L 3.8 Chloride (98-107) mmol/L 98 Carbon Dioxide (21.0-32.0) mmol/L 26.5 Anion Gap (3-11) mmol/L 9.5 BUN (7-18) mg/dL 11 Creatinine (0.70-1.30) mg/dL 1.0 Est GFR (CKD-EPI 2020) (mL/min/1.73m2) 85.10 Glucose (74-106) mg/dL 96 Calcium (8.5-10.1) mg/dL 8.6 Total Bilirubin (0.2-1.0) mg/dL 0.2 AST (15-37) U/L 24 ALT (16-63) U/L 24 Alkaline Phosphatase (46-116) U/L 94 Total Protein (6.4-8.2) g/dL 7.7 Albumin (3.4-5.0) g/dL 3.5 Procalcitonin ng/mL < 0.10 Urine Color (Yellow) Yellow Urine Clarity (Clear) Clear Urine pH (5-8) 6.0 Ur Specific [place] (1.005-1.025) 1.025 Urine Protein (Neg-Trace) mg/dL 30 H Urine Ketones (Negative) mg/dL 40 H Urine Blood (Negative) Negative Urine Nitrite (Negative) Negative Urine Bilirubin (Negative) Negative Urine Urobilinogen (Up to 0.2) mg/dL 0.2 Ur Leukocyte Esterase (Negative) Negative Urine RBC (0-2) HPF Negative Urine WBC (0-5) HPF Negative Ur Epithelial Cells (Negative) HPF Negative Urine Crystals (Negative) HPF Negative Urine Bacteria (Negative) HPF Negative Urine Casts (Negative) LPF Negative Urine Mucus (Negative) Negative Urine Other (Negative) Negative Ur Culture Indicated? No Urine Glucose (Negative) mg/dL Negative COVID-19 Source Nasopharynx SARS-CoV-2 (PCR) (Negative) Negative Influenza Type A (PCR) (Negative) Positive A Influenza Type B (PCR) (Negative) Negative RSV (PCR) (Negative) Negative Quality:SDOH Health Related Social Needs: No Data to Display Discharge Plan Disposition Patient Disposition: Home Condition: Stable Discharge Details Clinical Impression: Influenza A, Left sided sciatica Primary Care Provider: Earlene Tesfaye ED Provider: Albino Power Home Meds and New Rx's Prescriptions: New oseltamivir 75 mg capsule 75 mg PO BID 5 Days Qty: 9 0RF Continued lisinopril 10 mg tablet 10 mg PO DAILY amlodipine 2.5 mg tablet 2.5 mg PO DAILY Patient Comments: TAKE ONE TABLET BY MOUTH EVERY DAY omeprazole 20 mg capsule,delayed release(DR/EC) 20 mg PO DAILY Qty: 30 0RF ibuprofen 400 mg Tablet 400 mg PO Q6H PRN Discharge Instructions Instructions: Cyclobenzaprine, Oseltamivir, Flu, Adult ED, Sciatica ED Additional Instructions: You were seen in the emergency department for your left-sided sciatica, please seek physical therapy evaluation, referral has been provided for you, take regular dose of Tylenol and ibuprofen, apply heat and ice the area, perform gentle stretching exercises, extension with a ingris bottle of muscle relaxer called cyclobenzaprine, this medicine may make you loopy it is not recommended to drive on it. Apply an smeo-jrx-lnxrkun lidocaine patch to the area of pain each night for 12 hours, you may apply topical anti-inflammatory cxzl-ijy-dorszeb medicine like Voltaren to the area of pain as well. You had a respiratory illness and your PCR swab resulted in a positive influenza A diagnosis. Your chest x-ray shows no pneumonia, your urinalysis shows no UTI. I have started you on a medicine called Tamiflu which should shorten the duration of your flu illness. Please return for any high fevers that will not respond Tylenol or ibuprofen, fast heart rate, feeling very nauseous and lethargic and weak or any other emergent concerns. Stand Alone Forms: Physical Therapy Referral Referrals: Earlene Tesfaye [Primary Care Provider] -
[2024-08-03 16:00] LABS: Bilirubin Negative (Negative); Blood Negative (Negative); Clarity Clear (Clear); Glucose Negative (Negative); Ketones 40 mg/dL (Negative); Leukocyte Esterase Negative (Negative); Nitrite Negative (Negative); Specific Gravity 1.025 (1.005-1.025); Urobilinogen 0.2 mg/dL (Up to 0.2)
[2024-08-03 16:03] LABS: Bacteria Negative HPF (Negative); C & S Indicated? No; Casts Negative LPF (Negative); Crystals Negative HPF (Negative); Epithelial Cells Negative HPF (Negative); Mucus Negative (Negative); Other Cells Negative (Negative); RBC Negative HPF (0-2); WBC Negative HPF (0-5)
[2024-08-03] MEDS: Cyclobenzaprine 10 MG TAB, 3 TABS/BTL PO (16:30)
[2024-08-03] MEDS: oxyCODONE 5 MG TAB PO (16:30)
[2024-08-03] MEDS: Cyclobenzaprine 10 MG TAB PO (16:30)
[2024-08-03] MEDS: Lidocaine 5% Patch 1 PATCH TP (16:31)
== END 2024-08-03 16:38 | disposition home or self-care (01) ==
PROVIDERS: Emergency Medicine; Emergency Provider Physician Assistant; PCP Nurse Practitioner Family
DX: J10.1 Influenza due to other identified influenza virus with other respiratory manifestations (principal); M54.32 Sciatica, left side; F17.210 Nicotine dependence, cigarettes, uncomplicated; Z90.81 Acquired absence of spleen
CPT/HCPCS: 00123; 80053; 84145; 87040; 87637; 96374; 96375; 99284; 71046; 81003; 81015; 83605; 85025; 85610; J0131; J1885

== ENCOUNTER 2024-08-10 13:30 | Inpatient (IN) | payer MEDICARE, MEDICAID, SELFPAY ==
[2024-08-10] VITALS (39 sets, daily range): BP systolic 106–146; BP diastolic 54–88; PULSE 22–118; RESP 2–28; TEMP 37–37.5; O2SAT 2–100
--- NOTE | 2024-08-10 13:35 | ED.GENADUL_ITS ---
Discharge Plan Discharge Details Chief Complaint: GenMedical Primary Care Provider: Earlene Tesfaye ED Provider: Geneva Rothman Home Meds and New Rx's Prescriptions: No Action lisinopril 10 mg tablet 10 mg PO DAILY amlodipine 2.5 mg tablet 2.5 mg PO DAILY Patient Comments: TAKE ONE TABLET BY MOUTH EVERY DAY omeprazole 20 mg capsule,delayed release(DR/EC) 20 mg PO DAILY Qty: 30 0RF ibuprofen 400 mg Tablet 400 mg PO Q6H PRN HPI General Date/Time Provider Initiated Documentation: 08/10/24 13:32 . HPI Narrative: Milton is a 63 year old male who presents to the emergency department today fo r evaluation of persistent cough and feeling unwell after flu diagnosis. He reports he started feeling unwell last Sunday (08/02/24), was diagnosed with L sided sciatica and influenza A on the next day; prescribed Tamiflu. He took medication as prescribed but has continued to have hot/cold chills, runny nose, chest congestion, productive cough (white/greenish sputum), chest discomfort while coughing, nausea and decreased food intake, and diarrhea (improved from onset). Has been taking ensure shakes but unable to eat since onset of symptoms. Denies recorded fevers, headaches, sore throat, wheezing, chest pain, vomiting, abdominal pain, or change in urine output. Past medical history is significant for asplenia, tobacco use (currently only a couple cigarettes a day), TBI, HTN, and chronic lower back pain. Denies h/o COPD. Physical exam remarkable for occasional productive cough. Coarse expiratory lung sounds. Normal heart sounds. Abdomen soft, nondistended, nontender palpation. Moist mucous membranes, no cervical or significant lymphadenopathy. D/dx includes but is not limited to: Pneumonia, new onset COPD exacerbation, extended recovery from viral illness/influenza, electrolyte imbalance, dehydration I independently interpreted the following tests: CBC notable for significant leukocytosis, white cell count 21.57 with thrombocytosis, platelets 528. Mild hyponatremia noted, sodium 130. Elevated BUN to creatinine ratio, BUN 23 with creatinine 1.0 today. Magnesium reassuring. Chest x-ray notable for patchy infiltrate in the left lung, this was confirmed by radiologist. While in the emergency department, Milton received a nebulizer treatment for coarse wheezes and Zofran for nausea. He was able to tolerate p.o. crackers and applesauce without difficulty. 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 While discussing treatment options with patient, O2 sat was noted to be decreased to 90% on room air with good pleth. As patient had new O2 requirement in setting of community-acquired pneumonia, presented patient to Dr. Powell, hospitalist for admission. Patient to be admitted to inpatient care unit. He is agreeable with plan of care. Related Data Home Medications ?Medication ?Instructions ?Recorded ?Confirmed ibuprofen 400 mg tablet 400 mg PO Q6H PRN 05/06/19 08/10/24 lisinopril 10 mg tablet 10 mg PO DAILY 06/07/22 08/10/24 amlodipine 2.5 mg tablet 2.5 mg PO DAILY 01/07/24 08/10/24 omeprazole 20 mg capsule,delayed 20 mg PO DAILY #30 caps 03/09/24 08/10/24 release Previous Rx's ?Medication ?Instructions ?Recorded omeprazole 20 mg capsule,delayed 20 mg PO DAILY #30 caps 03/09/24 release Allergies Allergy/AdvReac Type Severity Reaction Status Date / Time No Known Allergies Allergy Verified 08/10/24 13:48 General PAULA: 4 Review of Systems Narrative: see HPI Exam Const General: cooperative, healthy appearing, comfortable, no acute distress, well developed and well groomed Nutritional Appearance: thin Orientation: alert and oriented x3 HENMT Head: normal to inspection Ears: hearing grossly normal bilaterally General nose exam: external nose normal Face and sinus: normal facial exam Mouth: moist mucous membranes Resp Effort & Inspection: normal respiratory effort and able to speak in complete sentences Auscultation: rhonchi (Coarse lung sounds throughout) Cardio Rate: tachycardic Rhythm: regular rhythm Pulses: radial pulses present GI Inspection: normal to inspection and non-distended Palpation: soft, not firm, no guarding and nontender Skin General skin exam: no rashes or lesions noted Extrem General: no pedal edema Medical Decision Making Imaging Data Radiologic Study: Radiologist's impression: Exam(s) XR CHEST 2V PA LATERAL EXAM: XR CHEST 2V PA LATERAL CLINICAL HISTORY: persistant cough after flu A. TECHNIQUE: 2D digital imaging was performed. COMPARISON: CR,XR XR CHEST 2V PA LATERAL from 08/03/2024 FINDINGS: 2 views: Heart size remains normal. The mediastinum is not widened. Right lung is clear but there is now patchy infiltrate throughout the left lung field, not previously present. No pleural effusions. No fractures. IMPRESSION: There is now patchy infiltrate throughout the left lung. No pleural effusions. Quality:SDOH Health Related Social Needs: No Data to Display PFSH All Active Problems (Updated 08/03/24 @ 15:48 by Nayla Burch MD) Left sided sciatica (Acute) Influenza A (Acute) Acquired asplenia (Acute) Sepsis in asplenic subject (Acute) Lymphangitis (Acute) Cellulitis (Acute) Sepsis (Acute) Abrasion of left upper extremity (Acute) Cellulitis of left upper extremity (Acute) Right knee pain (Acute) Traumatic arthritis of left hip (Acute) Traumatic arthritis of left knee (Acute) Fracture of distal end of fibula (Acute) Left rotator cuff tear (Acute) Injection: 07/04/18 Medical History Chronic low back pain Anxiety Smoker TBI (traumatic brain injury) Hypertension Surgical History History of splenectomy History of open heart surgery History of knee surgery Colonoscopy - IV Sedation (10/02/16) Appendectomy Social History Smoking/Tobacco Use Status: Current-Occasional Tobacco Type: cigarettes Smoking risk assessment performed?: Yes Alcohol Intake: current Alcohol Intake frequency: 0-2 drinks per day Alcohol type: beer Drug use: Occasionally Substance use type: marijuana Housing: house Do you feel safe at home: Yes Do you feel safe in your relationship?: Yes
--- NOTE | 2024-08-10 13:45 | DI.RAD_ITS ---
Exam(s) XR CHEST 2V PA LATERAL EXAM: XR CHEST 2V PA LATERAL CLINICAL HISTORY: persistant cough after flu A. TECHNIQUE: 2D digital imaging was performed. COMPARISON: CR,XR XR CHEST 2V PA LATERAL from 08/03/2024 FINDINGS: 2 views: Heart size remains normal. The mediastinum is not widened. Right lung is clear but there is now patchy infiltrate throughout the left lung field, not previously present. No pleural effusions. No fractures. IMPRESSION: There is now patchy infiltrate throughout the left lung. No pleural effusions. DATA REPOSITORY: RADIATION DOSE DELIVERED:
[2024-08-10] MEDS: Ondansetron O.D.T. 4 MG TABEF PO (14:10)
[2024-08-10] MEDS: Albuterol 2.5 MG/3 ML INH SOLN VIAL UPD (14:10)
[2024-08-10 14:24] LABS: HGB 15.3 g/dL (13.5-17.5); MCH 29.4 pg (27.0-33.0); MCHC 34.8 % (32.0-36.0); MCV 85 fL (80-95); MPV 8.2 fL (8.0-11.0); Platelet Count 528 10^3/uL (130-400); RBC 5.21 10^6/uL (4.36-5.78); RDW 13.8 % (11.8-14.1); RDW-SD 42.9 fL; WBC 21.57 10^3/uL (4.4-10.8)
[2024-08-10 14:45] LABS: ALT 21 U/L (16-63); AST 18 U/L (15-37); Albumin 2.7 g/dL (3.4-5.0); Alkaline Phosphatase 94 U/L (46-116); Anion Gap 9.4 mmol/L (3-11); BUN 23 mg/dL (7-18); Bilirubin, Total 0.4 mg/dL (0.2-1.0); CO2 24.6 mmol/L (21.0-32.0); Calcium 9.4 mg/dL (8.5-10.1); Chloride 96 mmol/L (98-107); Glucose 103 mg/dL (74-106); Potassium 5.1 mmol/L (3.5-5.1); Sodium 130 mmol/L (136-145)
[2024-08-10 14:48] LABS: Absolute Lymphocyte Count 4.31 10^3/uL (1.2-3.4); Absolute Monocyte Count 1.29 10^3/uL (0.1-0.8); Absolute Neutrophil Count 15.96 10^3/uL (1.2-6.7); Atypical Lymphocytes % 5 %; Diff Comment Manual Differential; RBC Morphology Normal
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
[2024-08-10 16:16] LABS: Bilirubin Small (Negative); Blood Negative (Negative); Clarity Clear (Clear); Glucose Negative (Negative); Ketones 80 mg/dL (Negative); Leukocyte Esterase Negative (Negative); Nitrite Negative (Negative); Specific Gravity 1.025 (1.005-1.025); Urobilinogen 0.2 mg/dL (Up to 0.2)
[2024-08-10] MEDS: Albuterol/Ipratropium 3 ML UPD VIAL UPD ×2 (16:16→23:06)
[2024-08-10] MEDS: levoFLOXacin 500 MG, levoFLOXacin 250 MG 750 MG PO (16:16)
[2024-08-10] MEDS: methylPREDNISolone SUCC 40 MG VIAL IVP ×2 (16:17→23:26)
[2024-08-10] MEDS: Normal Saline 1,000 ML 1000 ML IV (16:17)
[2024-08-10 16:24] LABS: BE (Venous) -4 mmol/L (-2-3); HCO3 (Venous) 21 mmol/L (23-28); Lactate 1.1 mmol/L (<or=2.0); O2 Sat (Venous) 84 %; TCO2 (Venous) 19 mmol/L (24-29); pCO2 (Venous) 35 mmHg (41-51); pH (Venous) 7.39 (7.31-7.41); pO2 (Venous) 48 mmHg
[2024-08-10 16:29] LABS: Bacteria Rare HPF (Negative); C & S Indicated? No; Casts 0-2 Hyaline LPF (Negative); Crystals Negative HPF (Negative); Epithelial Cells Rare HPF (Negative); Mucus Moderate (Negative); RBC 0-2 HPF (0-2); WBC 0-2 HPF (0-5)
[2024-08-10 16:56] LABS: Procalcitonin < 0.10 ng/mL
--- NOTE | 2024-08-10 17:44 | W.PC.ACHO ---
Registration Status: Primary Language: Preferred Language: ED Information & Data Chief Complaint GenMedical 08/10/24 13:48 Chief Complaint [facility] 08/10/24 13:36 Triage Note Pt states he was here 08/10/24 13:36 several days ago with the flu, does not feel any better. Took tamiflu. Feels like his breathing is still bad, nauseated, unable to eat. Medical / Surgical History (Last Reviewed 02/06/24 @ 18:34 by Lee Faria MD) Chronic low back pain Anxiety Smoker TBI (traumatic brain injury) Hypertension (Last Reviewed 02/06/24 @ 18:34 by Lee Faria MD) History of splenectomy History of open heart surgery History of knee surgery Colonoscopy - IV Sedation (10/02/16) Appendectomy Most Recent Vital Signs Temperature 37.5 C 08/10/24 17:15 Temperature Source Temporal Artery Scan 08/10/24 17:10 Pulse 109 H 08/10/24 17:32 Pulse Rhythm Regular 08/10/24 17:15 Pulse 114 H 08/10/24 17:00 Respiratory Rate 18 08/10/24 17:15 Respiratory Effort Normal, Non-Labored 08/10/24 17:15 Respiratory Depth Normal 08/10/24 17:15 Respiratory Pattern Normal 08/10/24 17:15 Blood Pressure 122/63 08/10/24 17:15 Blood Pressure Mean 76 08/10/24 17:01 Blood Pressure Position Sitting 08/10/24 14:04 Pulse Oximetry 95 08/10/24 17:32 Oxygen Delivery Method Nasal Cannula 08/10/24 17:32 Oxygen Flow Rate 2 08/10/24 17:32 Comment 2 L oxygen initiated at this time 08/10/24 15:49 Allergies No Known Allergies Allergy (Verified 08/10/24 13:48) Active Medications Generic Name Dose Route Start Last Admin Trade Name Freq PRN Reason Stop Dose Admin Albuterol/Ipratropium 3 ml 08/10/24 17:00 08/10/24 16:16 Albuterol/Ipratropium 3 Ml Upd Vial UPD 3 ml Q6H BRANDYN Administration Methylprednisolone Sodium Succinate 40 mg 08/10/24 16:15 08/10/24 16:17 Methylprednisolone Succ 40 Mg Vial IVP 40 mg Q8H BRANDYN Administration IV IV Catheter Type [Right Peripheral IV Antecubital] IV Catheter Gauge [Right 18 Antecubital] Diet Orders Category Date Time Status Regular/Normal [DIET] Nutrition 08/10/24 Dinner Active Diagnostics 08/10/24 08/10/24 08/10/24 Range/Units 16:05 15:52 15:40 WBC (4.4-10.8) 10^3/uL RBC (4.36-5.78) 10^6/uL Hgb (13.5-17.5) g/dL Hct (40.0-50.0) % MCV (80-95) fL MCH (27.0-33.0) pg MCHC (32.0-36.0) % RDW (11.8-14.1) % Plt Count (130-400) 10^3/uL MPV (8.0-11.0) fL Immature Gran % % Neutrophils % % Lymphocytes % % Atypical Lymphs % % Monocytes % % Eosinophils % % Basophils % % Nucleated RBC % (0.0-0.3) % Absolute Neutrophils (1.2-6.7) 10^3/uL Absolute Lymphocytes (1.2-3.4) 10^3/uL Absolute Monocytes (0.1-0.8) 10^3/uL Absolute Eosinophils (0.0-0.7) 10^3/uL Absolute Basophils (0.0-0.2) 10^3/uL RBC Morphology VBG pH 7.39 (7.31-7.41) VBG pCO2 35 L (41-51) mmHg VBG pO2 48 mmHg VBG HCO3 21 L (23-28) mmol/L VBG Total CO2 19 L (24-29) mmol/L VBG O2 Saturation 84 % VBG Base Excess -4 L (-2-3) mmol/L VBG Lactate 1.1 (<or=2.0) mmol/L Sodium (136-145) mmol/L Potassium (3.5-5.1) mmol/L Chloride (98-107) mmol/L Carbon Dioxide (21.0-32.0) mmol/L Anion Gap (3-11) mmol/L BUN (7-18) mg/dL Creatinine (0.70-1.30) mg/dL Est GFR (CKD-EPI 2020) (mL/min/1.73m2) Glucose (74-106) mg/dL Calcium (8.5-10.1) mg/dL Magnesium (1.8-2.4) mg/dL Total Bilirubin (0.2-1.0) mg/dL AST (15-37) U/L ALT (16-63) U/L Alkaline Phosphatase (46-116) U/L Total Protein (6.4-8.2) g/dL Albumin (3.4-5.0) g/dL Procalcitonin < 0.10 ng/mL Urine Color Yellow (Yellow) Urine Clarity Clear (Clear) Urine pH 6.0 (5-8) Ur Specific [place] 1.025 (1.005-1.025) Urine Protein 100 H (Neg-Trace) mg/dL Urine Ketones 80 H (Negative) mg/dL Urine Blood Negative (Negative) Urine Nitrite Negative (Negative) Urine Bilirubin Small H (Negative) Urine Urobilinogen 0.2 (Up to 0.2) mg/dL Ur Leukocyte Esterase Negative (Negative) Urine RBC 0-2 (0-2) HPF Urine WBC 0-2 (0-5) HPF Ur Epithelial Cells Rare (Negative) HPF Urine Crystals Negative (Negative) HPF Urine Bacteria Rare (Negative) HPF Urine Casts 0-2 Hyaline (Negative) LPF Urine Mucus Moderate (Negative) Ur Culture Indicated? No Urine Glucose Negative (Negative) mg/dL Add-On Test Request TNP 08/10/24 Range/Units 14:17 WBC 21.57 H (4.4-10.8) 10^3/uL RBC 5.21 (4.36-5.78) 10^6/uL Hgb 15.3 (13.5-17.5) g/dL Hct 44.0 (40.0-50.0) % MCV 85 (80-95) fL MCH 29.4 (27.0-33.0) pg MCHC 34.8 (32.0-36.0) % RDW 13.8 (11.8-14.1) % Plt Count 528 H (130-400) 10^3/uL MPV 8.2 (8.0-11.0) fL Immature Gran % 0.0 % Neutrophils % 74.0 % Lymphocytes % 15.0 % Atypical Lymphs % 5 % Monocytes % 6.0 % Eosinophils % 0.0 % Basophils % 0.0 % Nucleated RBC % 0.0 (0.0-0.3) % Absolute Neutrophils 15.96 H (1.2-6.7) 10^3/uL Absolute Lymphocytes 4.31 H (1.2-3.4) 10^3/uL Absolute Monocytes 1.29 H (0.1-0.8) 10^3/uL Absolute Eosinophils 0.00 (0.0-0.7) 10^3/uL Absolute Basophils 0.00 (0.0-0.2) 10^3/uL RBC Morphology Normal VBG pH (7.31-7.41) VBG pCO2 (41-51) mmHg VBG pO2 mmHg VBG HCO3 (23-28) mmol/L VBG Total CO2 (24-29) mmol/L VBG O2 Saturation % VBG Base Excess (-2-3) mmol/L VBG Lactate (<or=2.0) mmol/L Sodium 130 L (136-145) mmol/L Potassium 5.1 (3.5-5.1) mmol/L Chloride 96 L (98-107) mmol/L Carbon Dioxide 24.6 (21.0-32.0) mmol/L Anion Gap 9.4 (3-11) mmol/L BUN 23 H (7-18) mg/dL Creatinine 1.0 (0.70-1.30) mg/dL Est GFR (CKD-EPI 2020) 85.10 (mL/min/1.73m2) Glucose 103 (74-106) mg/dL Calcium 9.4 (8.5-10.1) mg/dL Magnesium 2.0 (1.8-2.4) mg/dL Total Bilirubin 0.4 (0.2-1.0) mg/dL AST 18 (15-37) U/L ALT 21 (16-63) U/L Alkaline Phosphatase 94 (46-116) U/L Total Protein 8.0 (6.4-8.2) g/dL Albumin 2.7 L (3.4-5.0) g/dL Procalcitonin ng/mL Urine Color (Yellow) Urine Clarity (Clear) Urine pH (5-8) Ur Specific [place] (1.005-1.025) Urine Protein (Neg-Trace) mg/dL Urine Ketones (Negative) mg/dL Urine Blood (Negative) Urine Nitrite (Negative) Urine Bilirubin (Negative) Urine Urobilinogen (Up to 0.2) mg/dL Ur Leukocyte Esterase (Negative) Urine RBC (0-2) HPF Urine WBC (0-5) HPF Ur Epithelial Cells (Negative) HPF Urine Crystals (Negative) HPF Urine Bacteria (Negative) HPF Urine Casts (Negative) LPF Urine Mucus (Negative) Ur Culture Indicated? Urine Glucose (Negative) mg/dL Add-On Test Request 08/10/24 16:05 Blood Culture - Pending Blood 08/10/24 15:40 Blood Culture - Pending Blood Intake and Output - 24 Hour Total 08/10/24 13:30 thru 08/10/24 17:15 Weight 61.7 kg Falls Risk Assessment History of Falls Previous History 08/10/24 17:15 Contributing Factors No Factors 08/10/24 17:15 Ambulatory Aids Independent 08/10/24 17:15 Tubes/Lines W/no contributing factors 08/10/24 17:15 Gait Evaluation No gait disturbance 08/10/24 17:15 Cognition Cognitive impairment 08/10/24 17:15 Fall Total Score 40 08/10/24 17:15 Level of Risk Moderate Risk 08/10/24 17:15 Problems (Last Reviewed 02/06/24 @ 18:34 by Lee Faria MD) COPD (chronic obstructive pulmonary disease) (Chronic) Hypoxic respiratory failure (Acute) Community acquired pneumonia (Acute) Acquired asplenia (Acute) v v v v v v v v v Sending and/or Receiving Nurses: Please use comment section below to note any information pertinent to the patient hand-off not included above. Information / Comments: Report received from: Report received from Tracy Sandoval RN at 16:52. SBAR report given, all questions answered.
[2024-08-10] MEDS: Enoxaparin 40 MG/0.4 ML SYR SC (18:29)
[2024-08-10] MEDS: Acetaminophen 325 MG TAB PO (20:10)
[2024-08-10] MEDS: Normal Saline Flush 10 ML SYR IVP (23:52)
[2024-08-11] VITALS (10 sets, daily range): BP systolic 102–146; BP diastolic 49–88; PULSE 71–107; RESP 2–22; TEMP 36.6–37.6; O2SAT 92–97
[2024-08-11 00:39] LABS: ALT 22 U/L (16-63); AST 14 U/L (15-37); Albumin 2.4 g/dL (3.4-5.0); Alkaline Phosphatase 86 U/L (46-116); Anion Gap 9.6 mmol/L (3-11); BUN 21 mg/dL (7-18); Bilirubin, Total 0.3 mg/dL (0.2-1.0); CO2 20.4 mmol/L (21.0-32.0); CREATININE 0.9 mg/dL (0.70-1.30); Calcium 8.8 mg/dL (8.5-10.1); Chloride 99 mmol/L (98-107); Estimated GFR 96.57 (mL/min/1.73m2); Glucose 159 mg/dL (74-106); Potassium 4.8 mmol/L (3.5-5.1); Sodium 129 mmol/L (136-145); Total Protein 7.2 g/dL (6.4-8.2)
[2024-08-11] MEDS: Albuterol/Ipratropium 3 ML UPD VIAL UPD ×3 (04:25→18:20)
[2024-08-11 06:45] LABS: Abs Immature Grans 0.31 10^3/uL (0.0-0.06); Absolute Basophil Count 0.09 10^3/uL (0.0-0.2); Absolute Lymphocyte Count 1.23 10^3/uL (1.2-3.4); Basophils % 0.6 %; HCT 38.9 % (40.0-50.0); MCH 29.7 pg (27.0-33.0); MCV 82 fL (80-95); MPV 8.6 fL (8.0-11.0); Monocytes % 3.8 %; Neutrophils % 85.6 %; Platelet Count 590 10^3/uL (130-400); RBC 4.72 10^6/uL (4.36-5.78); RDW 13.8 % (11.8-14.1); RDW-SD 41.2 fL; WBC 15.34 10^3/uL (4.4-10.8)
[2024-08-11 06:48] LABS: Absolute Monocyte Count 0.58 10^3/uL (0.1-0.8); Absolute Neutrophil Count 13.13 10^3/uL (1.2-6.7)
[2024-08-11] MEDS: methylPREDNISolone SUCC 40 MG VIAL IVP (07:54)
[2024-08-11] MEDS: Lisinopril 10 MG TAB PO (08:15)
[2024-08-11] MEDS: Omeprazole 20 MG CAPCR PO (08:15)
[2024-08-11] MEDS: Nicotine 7 MG/24 HR PATCH TD ×2 (08:29→21:02)
[2024-08-11] MEDS: Normal Saline Flush 10 ML SYR IVP ×3 (08:30→20:19)
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
--- NOTE | 2024-08-11 09:53 | W.PM.PROGNOT ---
Date of Service Date of service: 08/11/24 Time of Service: 09:53 Assessment and Plan Assessment and plan (1) Sepsis: Status: Acute Assessment and plan: Sepsis criteria w WBC >12 at 21 , tachycardia HR > 90 with HR 107-114 and source is pulmonary as per point 3 Blood Cx pending Improving leukocytosis at 15 and as below (2) Acquired asplenia: Status: Acute Assessment and plan: According to his Curb-65 score the patient could be treated as an outpatient but in setting of sepsis and aslepnia an new oxygen requirement the patient was admitted (3) Community acquired pneumonia: Status: Acute Assessment and plan: A per CXR finding of left lung field infiltrate Will continue with his Levaquin MRSA PCR pending And as above (4) Smoker: Assessment and plan: Reportedly has not smoked for 2-3 weeks and only started smoking 5 years ago NRT PRN (5) COPD (chronic obstructive pulmonary disease): Status: Chronic Assessment and plan: No formal diagnosis but he does have a history of tobacco abuse and checks x-ray was somewhat indicative of COPD with cephalization. Continue prednisone and inhalers. Discussed need for pulmonology referral needed for PFT with PCP Discussed with Dr. Powell Subjective Subjective Patient reports: feels better, tolerating liquids well, tolerating a regular diet, voiding w/o difficulty and shortness of breath (with speech); denies diarrhea, nausea, vomiting or fever Exam Narrative Exam Narrative: Constitutional 63 yo male patient appearing older than stated age,A &O X4 w/o neurological focal deficit Resp: speaks in short sentences, labored breathing w speech , breath sounds are coarse to the L lower lung field Cardio: regular rhythm, S1, S2, no murmur, capillary refill<3 sec., bilateral radial and dorsalis pedis pulses are positive, palpable GI: Abdomen is not distended, soft and non tender, bowel sounds are present Extremities: strength 5/5 to bilateral lower and upper extremities Psych: RASS 0, congruent mood and normal affect. Objective Last Vital Signs Temp 36.9 C 08/11/24 07:15 Pulse 95 H 08/11/24 07:15 Resp 17 08/11/24 07:15 BP 139/77 08/11/24 07:15 Pulse Ox 97 08/11/24 07:49 Laboratory Results - last 24 hr 08/10/24 08/10/2425 14:17 15:40 15:52 WBC 21.57 H RBC 5.21 Hgb 15.3 Hct 44.0 MCV 85 MCH 29.4 MCHC 34.8 RDW 13.8 Plt Count 528 H MPV 8.2 Immature Gran % 0.0 Neutrophils % 74.0 Lymphocytes % 15.0 Atypical Lymphs % 5 Monocytes % 6.0 Eosinophils % 0.0 Basophils % 0.0 Nucleated RBC % 0.0 Absolute Neutrophils 15.96 H Absolute Lymphocytes 4.31 H Absolute Monocytes 1.29 H Absolute Eosinophils 0.00 Absolute Basophils 0.00 RBC Morphology Normal VBG pH VBG pCO2 VBG pO2 VBG HCO3 VBG Total CO2 VBG O2 Saturation VBG Base Excess VBG Lactate Sodium 130 L Potassium 5.1 Chloride 96 L Carbon Dioxide 24.6 Anion Gap 9.4 BUN 23 H Creatinine 1.0 Est GFR (CKD-EPI 2020) 85.10 Glucose 103 Calcium 9.4 Magnesium 2.0 Total Bilirubin 0.4 AST 18 ALT 21 Alkaline Phosphatase 94 Total Protein 8.0 Albumin 2.7 L Procalcitonin Urine Color Yellow Urine Clarity Clear Urine pH 6.0 Ur Specific [place] 1.025 Urine Protein 100 H Urine Ketones 80 H Urine Blood Negative Urine Nitrite Negative Urine Bilirubin Small H Urine Urobilinogen 0.2 Ur Leukocyte Esterase Negative Urine RBC 0-2 Urine WBC 0-2 Ur Epithelial Cells Rare Urine Crystals Negative Urine Bacteria Rare Urine Casts 0-2 Hyaline Urine Mucus Moderate Ur Culture Indicated? No Urine Glucose Negative Add-On Test Request [facility] 08/10/24 08/11/24 08/11/24 16:05 00:15 06:15 WBC 15.34 H RBC 4.72 Hgb 14.0 Hct 38.9 L MCV 82 MCH 29.7 MCHC 36.0 RDW 13.8 Plt Count 590 H MPV 8.6 Immature Gran % 2.0 Neutrophils % 85.6 Lymphocytes % 8.0 Atypical Lymphs % Monocytes % 3.8 Eosinophils % 0.0 Basophils % 0.6 Nucleated RBC % 0.0 Absolute Neutrophils 13.13 H Absolute Lymphocytes 1.23 Absolute Monocytes 0.58 Absolute Eosinophils 0.00 Absolute Basophils 0.09 RBC Morphology VBG pH 7.39 VBG pCO2 35 L VBG pO2 48 VBG HCO3 21 L VBG Total CO2 19 L VBG O2 Saturation 84 VBG Base Excess -4 L VBG Lactate 1.1 Sodium 129 L Potassium 4.8 Chloride 99 Carbon Dioxide 20.4 L Anion Gap 9.6 BUN 21 H Creatinine 0.9 Est GFR (CKD-EPI 2020) 96.57 Glucose 159 H Calcium 8.8 Magnesium Total Bilirubin 0.3 AST 14 L ALT 22 Alkaline Phosphatase 86 Total Protein 7.2 Albumin 2.4 L Procalcitonin < 0.10 Urine Color Urine Clarity Urine pH Ur Specific [place] Urine Protein Urine Ketones Urine Blood Urine Nitrite Urine Bilirubin Urine Urobilinogen Ur Leukocyte Esterase Urine RBC Urine WBC Ur Epithelial Cells Urine Crystals Urine Bacteria Urine Casts Urine Mucus Ur Culture Indicated? Urine Glucose Add-On Test Request Time Spent with Patient Time Spent with Patient: >50 minutes Time was spent: preparing to see the patient(eg.review tests), obtaining and/or reviewing separately otained hiistory, ordering medications,tests, procedures, referring, communicating with other health complex care nurse, indepentently interpreting results, counseling the patient and care coordination
[2024-08-11] MEDS: Acetaminophen 325 MG TAB PO (11:43)
[2024-08-11] MEDS: guaiFENesin 600 MG TABCR PO ×2 (12:58→20:19)
[2024-08-11] MEDS: predniSONE 20 MG TAB 40 MG PO (12:58)
[2024-08-11 16:20] LABS: MRSA PCR Negative (Negative)
[2024-08-11] MEDS: Enoxaparin 40 MG/0.4 ML SYR SC (17:57)
--- NOTE | 2024-08-11 18:49 | NUR.NOTE ---
PATIENT AxOx4 throughout shift, VSS, weaned off O2 this AM and continued on RA throughout shift without MENA/SOB. Patient independent in room and with ADLS/ambulation. Remaining overnight with pending blood cultures due to history of asplenia. PIV intact, tolerating PO, BM today and voiding spontaneously. Denies needs. Resting in room, call palomo in reach. Nursing Note:
[2024-08-11] MEDS: Patch Removal 1 EACH TD (21:02)
[2024-08-12 00:18] VITALS: PULSE 78; RESP 2; O2SAT 93
[2024-08-12] MEDS: Albuterol/Ipratropium 3 ML UPD VIAL UPD ×2 (00:18→06:23)
[2024-08-12 06:23] VITALS: RESP 2
[2024-08-12 07:54] VITALS: BP 131/77; PULSE 94; RESP 20; TEMP 37.1; O2SAT 94
[2024-08-12] MEDS: amLODIPine 2.5 MG TAB PO (08:03)
[2024-08-12] MEDS: Lisinopril 10 MG TAB PO (08:03)
[2024-08-12] MEDS: guaiFENesin 600 MG TABCR PO (08:03)
[2024-08-12] MEDS: predniSONE 20 MG TAB 40 MG PO (08:03)
[2024-08-12] MEDS: Normal Saline Flush 10 ML SYR IVP (08:03)
[2024-08-12 11:05] VITALS: O2SAT 94
[2024-08-12 11:21] VITALS: BP 140/86; PULSE 84; RESP 18; TEMP 37.1; O2SAT 96
--- NOTE | 2024-08-12 11:26 | W.PM.DS.N ---
Date of service: 08/12/24 Time of Service: 11:26 DS: Diagnosis Discharge Diagnosis (1) Sepsis: Status: Acute (2) Acquired asplenia: Status: Acute (3) Community acquired pneumonia: Status: Acute (4) Smoker: (5) COPD (chronic obstructive pulmonary disease): Status: Chronic Discharge Plan Disposition Patient Disposition: Home Condition: Improving Discharge Details Reason For Visit: CAP Admit Date/Time: 08/10/24 16:06 Admit Provider: Bam Powell Attending Provider: Bam Powell Primary Care Provider: Earlene Tesfaye Hospital Course Hospital Course: This 63-year-old male patient with a PMHx of acquired aslepnia s/p trauma, hypertension and possible COPD, stopped smoking about 2-3 weeks ,influenza on 08/02/24 and treated with Tamiflu from the ED, presented to the ED on 08/10/24 for evaluation of worsening weakness and shortness of breath and cough of copious amount of yellow-colored sputum. In the ED the patient had increasing oxygen requirement, marked leukocytosis and chest x-ray which was indicative of pneumonia with cephalization. The patient was admitted to the hospitalist service for sepsis, pneumonia and acute hypoxic respiratory failure and COPD exacerbation. The patient was treated with levofloxacin, mucinex, nebulizers, prednisone; blood cultures were negative at 24 hours. On the day of discharge the patient was hemodynamically stable, afebrile without oxygen supplementation requirement. The patient will need a referral to pulmonology for PFT and a follow-up with his PCP within 7 days of discharge. Recommendation for PCP follow-up: Referral to pulmonology and PFT results Smoking cessation Discussed with Dr. Vergara Home Meds and New Rx's Prescriptions: New prednisone 20 mg Tablet 40 mg PO DAILY Qty: 3 0RF nicotine 7 mg/24 hr Patch 24 Hour 7 mg transdermal DAILY PRN PRNQty: 14 0RF levofloxacin 750 mg Tablet 750 mg PO QAM Qty: 5 0RF guaifenesin [Mucus Relief ER] 600 mg Tablet Extended Release 12hr 600 mg PO BID Qty: 10 0RF Combivent Respimat 20-100 mcg/actuation mist 1 puff inhalation QID Qty: 4 0RF Rx Instructions: space evenly during waking hours albuterol sulfate 90 mcg/actuation HFA aerosol inhaler 2 puff inhalation Q6H PRN (Reason: shortness of breath or wheezing) Qty: 6.7 0RF Continued lisinopril 10 mg tablet 10 mg PO DAILY amlodipine 2.5 mg tablet 2.5 mg PO DAILY Patient Comments: TAKE ONE TABLET BY MOUTH EVERY DAY omeprazole 20 mg capsule,delayed release(DR/EC) 20 mg PO DAILY Qty: 30 0RF ibuprofen 400 mg Tablet 400 mg PO Q6H PRN Discharge Instructions Stand Alone Forms: Nursing Discharge Form Referrals: Earlene Tesfaye [Primary Care Provider] - (Follow-up within 7 days of discharge please. You have an appointment 08/14 at 3:00pm. If you cannot make the appointment, please call to reschedule.) Gladys Martini PA [[employer]] - (Referral for PFT please and pulmonology follow-up. Please call the office to schedule an appointment.) Activity:: Activity as Tolerated Equipment/Supplies:: No Equipment Needed Diet:: heart healthy Discharge Orders Discharge Orders: Discharge Order (Routine); Ordered 08/12/24 Ordered By: Miriam Thorpe DS: Summary Time Spent with Patient providing and/or coordinating discharge services: Greater than 30 minutes Status at Discharge Functional status at discharge: independent ambulation Overall status at discharge: patient is progressing back to baseline Mental Status: mental status grossly normal Speech and Movement: speech and movement normal Mood: congruent mood Affect: normal affect Quality:SDOH Health Related Social Needs: No Data to Display Exam Narrative Exam Narrative: Constitutional 63 yo male patient appearing older than stated age,A &O X4 w/o neurological focal deficit Resp: unlabored breathing, slight wheezing right upper lung, improved breath sounds to left lower lung but remains slightly coarse Cardio: regular rhythm, S1, S2, no murmur GI: Abdomen is not distended, soft and non tender, bowel sounds are present Extremities: strength 5/5 to bilateral lower and upper extremities Psych: RASS 0, congruent mood and normal affect. Psych Mental Status: mental status grossly normal Speech and Movement: speech and movement normal Mood: congruent mood Affect: normal affect DS: Data Vitals/I&O Vitals and I&O: Vital Signs Temperature 37.1 C 08/12/24 11:21 Temperature Source Temporal Artery Scan 08/12/24 11:21 Pulse 84 08/12/24 11:21 Pulse Rhythm Regular 08/10/24 17:15 Pulse 114 H 08/10/24 17:00 Respiratory Rate 18 08/12/24 11:21 Respiratory Effort Normal, Non-Labored 08/10/24 17:15 Respiratory Depth Normal 08/10/24 17:15 Respiratory Pattern Normal 08/10/24 17:15 Blood Pressure 140/86 08/12/24 11:21 Blood Pressure Mean 76 08/10/24 17:01 Blood Pressure Position Sitting 08/10/24 14:04 Pulse Oximetry 96 08/12/24 11:21 Oxygen Delivery Method Room Air 08/12/24 11:21 Oxygen Flow Rate 0 08/12/24 11:21 Pain Level 0 08/12/24 11:21 Comment pt refused vitals 08/12/24 02:48 Comment 2 L oxygen initiated at this time 08/10/24 15:49 Intake & Output 08/11/24 08/11/24 08/12/24 11:59 23:59 11:59 Intake Total 240 / 240 240 / 240 Balance 240 / 240 240 / 240 Weight 60 kg 60.3 kg Intake: Oral 240 / 240 240 / 240 Other: Urine Color Yellow Urine Appearance Clear Urine Odor None Comment independent output undocumented - pT voiding independently at toliet x1 independent Data Completed and Pending Labs on day of discharge: Labs from last 24 hours 08/11/24 13:16 MRSA (TEM-PCR) Negative Preliminary micro results at discharge 08/10/24 16:05 Blood Culture - Preliminary Blood NO GROWTH 24 HOURS 08/10/24 15:40 Blood Culture - Preliminary Blood NO GROWTH 24 HOURS PFSH All Active Problems (Updated 08/12/24 @ 11:20 by Miriam Thorpe APRN) Wheezing (Acute) COPD (chronic obstructive pulmonary disease) (Chronic) Hypoxic respiratory failure (Acute) Community acquired pneumonia (Acute) Left sided sciatica (Acute) Influenza A (Acute) Acquired asplenia (Acute) Sepsis in asplenic subject (Acute) Lymphangitis (Acute) Cellulitis (Acute) Sepsis (Acute) Abrasion of left upper extremity (Acute) Cellulitis of left upper extremity (Acute) Right knee pain (Acute) Traumatic arthritis of left hip (Acute) Traumatic arthritis of left knee (Acute) Fracture of distal end of fibula (Acute) Left rotator cuff tear (Acute) Injection: 07/04/18 Medical History Chronic low back pain Anxiety Smoker TBI (traumatic brain injury) Hypertension Surgical History History of splenectomy History of open heart surgery History of knee surgery Colonoscopy - IV Sedation (10/02/16) Appendectomy Social History Smoking/Tobacco Use Status: Current-Occasional Tobacco Type: cigarettes Smoking risk assessment performed?: Yes Alcohol Intake: current Alcohol Intake frequency: 0-2 drinks per day Alcohol type: beer Drug use: Occasionally Substance use type: marijuana Housing: house Do you feel safe at home: Yes Do you feel safe in your relationship?: Yes Time Spent with Patient Time Spent with Patient: 70-84 minutes4 Time was spent: preparing to see the patient(eg.review tests), obtaining and/or reviewing separately otained hiistory, ordering medications,tests, procedures, referring, communicating with other health urgent care nurse practitioner, indepentently interpreting results, counseling the patient and care coordination
[2024-08-12] MEDS: levoFLOXacin 500 MG, levoFLOXacin 250 MG 750 MG PO (11:31)
[2024-08-12] MEDS: Ipratropium/Albuterol 4 GM 120 PUFF INH IH (11:43)
--- NOTE | 2024-08-12 13:38 | PDOC.CMDIS ---
Date of service: 08/12/24 Time of Service: 13:38 LACE Index Scoring Tool Questions: Length of Stay (in days): 2 Was the patient admitted via the E.D.?: Yes Comorbidities: Cerebrovascular Disease and Chronic Pulmonary Disease E.D. Visits: 3 Answers: Total Score: 11 Risk of Readmission: High Risk Care Management Discharge Plan Reason for Hospitalization: pneumonia Discharge Plan: Alejo was discharged today with no new services. He will f/u with his PCP and with pulmonology and continue per his plan of care. He was transported home in a private vehicle. Patient/Family Education Needs: Review of discharge instructions, activity, limitations, and discuss ask me 3. SDOH Health Related Social Needs: No Data to Display
== END 2024-08-12 12:16 | disposition home or self-care (01) | DRG 871 ==
LOC: ER 16:24 → MS 17:09
PROVIDERS: Admitting Provider Hospitalist; Emergency Provider Nurse Practitioner Family; PCP Nurse Practitioner Family; Responsible Provider Nurse Practitioner Acute Care; Visit Provider Hospitalist
DX: J18.9 Pneumonia, unspecified organism; A41.9 Sepsis, unspecified organism; J96.91 Respiratory failure, unspecified with hypoxia; J44.0 Chronic obstructive pulmonary disease with (acute) lower respiratory infection; Z90.81 Acquired absence of spleen; F17.210 Nicotine dependence, cigarettes, uncomplicated; Z79.899 Other long term (current) drug therapy; G89.29 Other chronic pain; F41.9 Anxiety disorder, unspecified; I10 Essential (primary) hypertension; Z87.820 Personal history of traumatic brain injury; M54.42 Lumbago with sciatica, left side; F12.90 Cannabis use, unspecified, uncomplicated; M16.32 Unilateral osteoarthritis resulting from hip dysplasia, left hip; M17.32 Unilateral post-traumatic osteoarthritis, left knee
CPT/HCPCS: 00123; 36415; 80053; 82805; 84145; 87040; 87641; 94640; 94761; 96374; 99285; J1650; 71046; 81003; 81015; 83605; 83735; 85025; 94664; 94667; 94760; 99222; 99233; 99239; J2919; J3490; J7512; J7613; J7620